=== PATIENT | male | born 1950 | race Caucasian/White ===

== ENCOUNTER 2018-09-02 13:06 | Inpatient (IN) ==
[2018-09-02] MEDS ORDERED: Furosemide 40 MG/4 ML VIAL IVP ONE (13:14)
[2018-09-02] MEDS ORDERED: Nitroglycerin 25 MG/250 ML INFUS..BTL IVC ONE (13:16)
[2018-09-02] MEDS: Nitroglycerin 25 MG/250 ML INFUS..BTL IVC SCH (13:22)
--- NOTE | 2018-09-02 13:23 | Emergency Department Note ---
Disposition Clinical Impression: Acute decompensated heart failure Acute respiratory failure Qualifiers: Respiratory failure complication: hypoxia Qualified Code(s): J96.01 - Acute respiratory failure with hypoxia Disposition: Admitted As Inpatient Condition: Fair [facility]errals: [facility] [Primary Care Provider[facility] - Forms: ED Satisfaction Letter Time of Disposition: 15:25 General Adult HPI - General Chief complaint: ED Shortness of Breath/Dyspnea Stated complaint: Chest pain, SOB Time Seen by Provider: 09/02/18 13:09 Source: other Limitations: no limitations - History of Present Illness Pain Scale: 5 - Related Data Home Medications Medication Instructions Recorded Confirmed Amlodipine Besylate 10 mg PO QAM 07/03/15 09/02/18 Aspirin [Adult Low Dose Aspirin EC] 81 mg PO QAM 07/03/15 09/02/18 Clopidogrel [Plavix] 75 mg PO QAM 07/03/15 09/02/18 Gabapentin [Neurontin] 400 mg PO TID 07/03/15 09/02/18 Isosorbide MONOnitrate (24 HR) 30 mg PO QAM 07/03/15 09/02/18 [Imdur] Losartan [Cozaar] 75 mg PO QPM 07/03/15 09/02/18 Metoprolol Tartrate [Lopressor] 50 mg PO BID 07/03/15 09/02/18 glipiZIDE [Glipizide] 10 mg PO QAM 07/03/15 09/02/18 Cholecalciferol (Vitamin D3) 1,000 unit PO DAILY 04/27/18 09/02/18 [Vitamin D3] Pantoprazole Sodium [Protonix] 40 mg PO DAILY 04/27/18 09/02/18 Rosuvastatin Calcium [Crestor] 10 mg PO DAILY 04/27/18 09/02/18 Tamsulosin [Flomax] 0.4 mg PO DAILY 04/27/18 09/02/18 Allergies Allergy/AdvReac Type Severity Reaction Status Date / Time No Known Allergies Allergy Verified 07/03/15 10:01 Past Medical History - Past Medical History Medical history: Reports: arthritis, diabetes, hypertension, myocardial infarction Surgical history: Reports: coronary bypass (CABG) Psychiatric history: Reports: no psych history - Social History Smoking Status: Former smoker Smokeless Tobacco Status: No Alcohol use: Reports: none Drug use: Reports: none Physical Exam - General Limitations: no limitations General appearance: alert Course Vital Signs Temperature 97.6 F 09/02/18 13:08 Pulse Rate 90 09/02/18 13:08 Respiratory Rate 29 09/02/18 13:08 Blood Pressure 154/103 09/02/18 13:08 O2 Sat by Pulse Oximetry 81 09/02/18 13:08 Temperature 97.6 F 09/02/18 13:08 Pulse Rate 70 09/02/18 16:43 Respiratory Rate 18 09/02/18 16:43 Blood Pressure 150/89 09/02/18 16:43 O2 Sat by Pulse Oximetry 97 09/02/18 16:43 Oxygen Delivery Oxygen Delivery Bipap Medical Decision Making - Lab Data Result diagrams: 09/02/18 13:33 09/02/18 13:31 Lab Results 09/02/18 09/02/18 09/02/18 Range/Units 13:31 13:31 13:33 WBC 9.3 (4.3-11.1) K/mcL RBC 5.94 H (4.19-5.50) M/mcL Hgb 16.5 (12.9-16.9) g/dL Hct 52.2 H (37.5-50.1) % MCV 87.9 (83.0-100.0) fL MCH 27.8 L (28.0-33.3) pg MCHC 31.6 (31.6-35.5) g/dL RDW 15.5 H (11.5-14.5) % Plt Count 163 (140-400) K/mcL MPV 11.8 (9.4-12.4) fL Immature Gran % 0.9 (0-4) % Seg Neutrophils % 78.8 % Lymphocytes % 10.9 % Monocytes % 6.4 % Eosinophils % 2.4 % Basophils % 0.6 % Neutrophils # 7.3 (1.6-8.9) K/mcL Lymphocytes # 1.0 (0.6-4.6) K/mcL Monocytes # 0.6 (0.0-1.3) K/mcL Eosinophils # 0.2 (0.0-0.6) K/mcL Basophils # 0.1 (0.0-0.2) K/mcL PT 12.0 (9.4-12.1) Seconds INR 1.1 Sodium 137 (136-145) mEq/L Potassium 4.2 (3.5-5.1) mEq/L Chloride 104 (98-107) mEq/L Carbon Dioxide 18 L (23-29) mEq/L BUN 28 H (8-23) mg/dL Creatinine 1.46 H (0.70-1.30) mg/dL Est GFR ( Amer) 58 L (> 60) Est GFR (Non-Af Amer) 48 L (> 60) BUN/Creatinine Ratio 19 (6-26) Glucose 253 H (70-105) mg/dL Calculated Osmolality 298 (280-300) Calcium 9.1 (8.6-10.3) mg/dL Troponin I < 0.03 (< 0.04) ng/mL B-Natriuretic Peptide (Less than 100) pg/mL 09/02/18 Range/Units 13:33 WBC (4.3-11.1) K/mcL RBC (4.19-5.50) M/mcL Hgb (12.9-16.9) g/dL Hct (37.5-50.1) % MCV (83.0-100.0) fL MCH (28.0-33.3) pg MCHC (31.6-35.5) g/dL RDW (11.5-14.5) % Plt Count (140-400) K/mcL MPV (9.4-12.4) fL Immature Gran % (0-4) % Seg Neutrophils % % Lymphocytes % % Monocytes % % Eosinophils % % Basophils % % Neutrophils # (1.6-8.9) K/mcL Lymphocytes # (0.6-4.6) K/mcL Monocytes # (0.0-1.3) K/mcL Eosinophils # (0.0-0.6) K/mcL Basophils # (0.0-0.2) K/mcL PT (9.4-12.1) Seconds INR Sodium (136-145) mEq/L Potassium (3.5-5.1) mEq/L Chloride (98-107) mEq/L Carbon Dioxide (23-29) mEq/L BUN (8-23) mg/dL Creatinine (0.70-1.30) mg/dL Est GFR ( Amer) (> 60) Est GFR (Non-Af Amer) (> 60) BUN/Creatinine Ratio (6-26) Glucose (70-105) mg/dL Calculated Osmolality (280-300) Calcium (8.6-10.3) mg/dL Troponin I (< 0.04) ng/mL B-Natriuretic Peptide 293 H (Less than 100) pg/mL Critical Care Time Critical Care Time: Yes Total Critical Care Time: 40 Attestation: Critical care performed: Time is exclusive of separately billable procedures. Time includes: direct patient care, patient reassessment, coordination of patient care, interpretation of data (laboratory data, radiology data, and respiratory data), review of patient's medical records, medical consultation and documentation of patient care. Procedures included in critical care time: Procedures excluded from critical care time: Attestation Statement - Attestation Attestation: I examined this patient and my medical decision-making was reviewed with the Resident Physician. I agree with the documented findings, disposition and treatment plan as described except to the extent set forth below. Patient presents to the ED in respiratory distress. Patient was in cardiopulmonary having a stress test. It was completed. On the stress test a respiratory therapist DIRECT CHAIR. HIS PULSE OX IS IN THE 70S. HE IS BROUGHT FOR EVALUATION. ON EXAMINATION HE IS IN RESPIRATORY DISTRESS. DUSKY. DIFFUSE RAILS. 2+ pitting edema to his lower extremities. Plan. The patient appears to be M.D., stated heart failure. He was immediately placed on a BiPAP. We will give much glycerin Lasix. Cardiac workup. Likely admission. Patient reevaluated. He is much more comfortable on BiPAP. Speaking full senses at this time. Calling for admission. Chest X-Ray 09/02/18 13:17 IMPRESSION: Central pulmonary vascular congestion, compatible with mild CHF. D/ / Ervin Saba MD / Ervin Saba MD Interpreting Provider: Ervin Saba MD
--- NOTE | 2018-09-02 13:49 | Emergency Department Note ---
Disposition Clinical Impression: Acute decompensated heart failure Acute respiratory failure Qualifiers: Respiratory failure complication: hypoxia Qualified Code(s): J96.01 - Acute respiratory failure with hypoxia Disposition: Admitted As Inpatient Condition: Fair [facility]errals: [facility] [Primary Care Provider] - Forms: ED Satisfaction Letter Time of Disposition: 17:26 SOB HPI - General Chief Complaint: ED Shortness of Breath/Dyspnea Stated Complaint: Chest pain, SOB Time Seen by Provider: 09/02/18 13:09 Source: patient, family, other Mode of arrival: ambulatory Limitations: no limitations Nursing Notes Reviewed: Yes Vital Signs Reviewed: Yes - History of Present Illness 68-year-old male with past medical history of myocardial infarction with coronary artery bypass stated 6 stents placed in 2007. Past medical history of CHF, presenting for one day history of profound shortness of breath. Patient was at outpatient cardiac stress test today with negative workup when he suddenly developed profound shortness of breath. Respiratory therapy noted the patient's oxygen saturations were in the 70s on room air. Patient was brought to the ED and placed on nonrebreather mask and transitioned quickly to BiPAP. Patient is doing much better on BiPAP and is now able to participate in review systems and history of present illness questioning. Patient started on nitro drip for concern of ACS. Versus pulmonary hypertension. Pt Subjective Complaint: shortness of breath Onset (ago): hour(s) Severity: severe Improves with: oxygen Known history of: congestive heart failure Associated symptoms: Reports: other (Lightheadedness dizziness) Cough present: No - Related Data Home Medications Medication Instructions Recorded Confirmed Amlodipine Besylate 10 mg PO QAM 07/03/15 09/02/18 Aspirin [Adult Low Dose Aspirin EC] 81 mg PO QAM 07/03/15 09/02/18 Clopidogrel [Plavix] 75 mg PO QAM 07/03/15 09/02/18 Gabapentin [Neurontin] 400 mg PO TID 07/03/15 09/02/18 Isosorbide MONOnitrate (24 HR) 30 mg PO QAM 07/03/15 09/02/18 [Imdur] Losartan [Cozaar] 75 mg PO QPM 07/03/15 09/02/18 Metoprolol Tartrate [Lopressor] 50 mg PO BID 07/03/15 09/02/18 glipiZIDE [Glipizide] 10 mg PO QAM 07/03/15 09/02/18 Cholecalciferol (Vitamin D3) 1,000 unit PO DAILY 04/27/18 09/02/18 [Vitamin D3] Pantoprazole Sodium [Protonix] 40 mg PO DAILY 04/27/18 09/02/18 Rosuvastatin Calcium [Crestor] 10 mg PO DAILY 04/27/18 09/02/18 Tamsulosin [Flomax] 0.4 mg PO DAILY 04/27/18 09/02/18 Allergies Allergy/AdvReac Type Severity Reaction Status Date / Time No Known Allergies Allergy Verified 07/03/15 10:01 Review of Systems: Constitutional: Denies: fever, chills Cardiovascular: Denies: chest pain Respiratory: Admits dyspnea Gastrointestinal: Denies: abdominal pain, nausea, vomiting Genitourinary: Denies: hematuria Musculoskeletal: Denies: back pain, neck pain Integumentary: Denies: rash Neurological: Denies: headache, weakness, numbness, paresthesias Endocrine: Admits fatigue All systems ED: reviewed and negative except as stated. Review of Systems: As Per HPI Past Medical History - Past Medical History Source: patient, obtained from family Medical history: Reports: arthritis, diabetes, hypertension, myocardial infarction Surgical history: Reports: coronary bypass (CABG) Psychiatric history: Reports: no psych history - Social History Smoking Status: Former smoker Smokeless Tobacco Status: No Alcohol use: Reports: none Drug use: Reports: none Physical Exam Constitutional: Patient moderate respiratory distress, otherwise [id number], engaged to conversation, speech is fluid, answers questions appropriately Neuro: GCS 15, no overt focal neurological deficits Head: Atraumatic, normocephalic Eyes: Pupils equal, round and reactive to light, no scleral icterus, no conjunctival injection Neck: Trachea midline without deviation. Anterior neck is supple without swelling. *Chest: Symmetric chest wall rise *Heart: Cardiac rhythm and rate are regular with S1 and S2 , no S3 or S4 appreciated, no murmurs, gallops, rubs, or clicks. *Lungs: Diffuse crackles and rhonchi bilaterally to auscultation, significant accessory muscle use or prolonged expiratory phase. Patient doing much better on BiPAP. Abdomen: Abdomen is rotund, soft to palpation, normal bowel sounds. No abdominal bruit auscultated. Non-distended, non-rigid, no organomegaly, no ascites appreciated. No pulsatile mass, no tenderness or guarding to palpation in all four quadrants, no rebound Extremities: Normal capillary refill without evidence of pedal edema, joint swelling or erythema. Pulses/motor intact in all 4 extremities. Psychiatric exam: Patient initially appears anxious but relaxes with BiPAP. Integumentary: warm, dry, intact, normal color. No rash, cyanosis, diaphoresis, erythema, or pallor - General Limitations: no limitations General appearance: alert Course Course Narrative: Concern for congestive heart failure Continue BiPAP CBC, BMP, BNP, troponin Chest x-ray, EKG/old EKG Nitroglycerin drip and furosemide for management of patient's symptoms We will titrate nitroglycerin to systolic blood pressure above 110. Vital Signs Temperature 97.6 F 09/02/18 13:08 Pulse Rate 90 09/02/18 13:08 Respiratory Rate 29 09/02/18 13:08 Blood Pressure 154/103 09/02/18 13:08 O2 Sat by Pulse Oximetry 81 09/02/18 13:08 Temperature 97.6 F 09/02/18 13:08 Pulse Rate 70 09/02/18 16:43 Respiratory Rate 18 09/02/18 16:43 Blood Pressure 150/89 09/02/18 16:43 O2 Sat by Pulse Oximetry 97 09/02/18 16:43 Oxygen Delivery Oxygen Delivery Bipap Shortness of Breath/Dyspnea - [facility] Narrative Medical decision making narrative: Patient laboratory and imaging results are consistent with congestive heart failure Patient will be admitted to hospitalist medicine service for further evaluation and management of CHF exacerbation. - Lab Data Lab results reviewed: Yes I reviewed the patient's lab results. Result diagrams: 09/02/18 13:33 09/02/18 13:31 Lab Results 09/02/18 09/02/18 09/02/18 Range/Units 13:31 13:31 13:33 WBC 9.3 (4.3-11.1) K/mcL RBC 5.94 H (4.19-5.50) M/mcL Hgb 16.5 (12.9-16.9) g/dL Hct 52.2 H (37.5-50.1) % MCV 87.9 (83.0-100.0) fL MCH 27.8 L (28.0-33.3) pg MCHC 31.6 (31.6-35.5) g/dL RDW 15.5 H (11.5-14.5) % Plt Count 163 (140-400) K/mcL MPV 11.8 (9.4-12.4) fL Immature Gran % 0.9 (0-4) % Seg Neutrophils % 78.8 % Lymphocytes % 10.9 % Monocytes % 6.4 % Eosinophils % 2.4 % Basophils % 0.6 % Neutrophils # 7.3 (1.6-8.9) K/mcL Lymphocytes # 1.0 (0.6-4.6) K/mcL Monocytes # 0.6 (0.0-1.3) K/mcL Eosinophils # 0.2 (0.0-0.6) K/mcL Basophils # 0.1 (0.0-0.2) K/mcL PT 12.0 (9.4-12.1) Seconds INR 1.1 Sodium 137 (136-145) mEq/L Potassium 4.2 (3.5-5.1) mEq/L Chloride 104 (98-107) mEq/L Carbon Dioxide 18 L (23-29) mEq/L BUN 28 H (8-23) mg/dL Creatinine 1.46 H (0.70-1.30) mg/dL Est GFR ( Amer) 58 L (> 60) Est GFR (Non-Af Amer) 48 L (> 60) BUN/Creatinine Ratio 19 (6-26) Glucose 253 H (70-105) mg/dL Calculated Osmolality 298 (280-300) Calcium 9.1 (8.6-10.3) mg/dL Troponin I < 0.03 (< 0.04) ng/mL B-Natriuretic Peptide (Less than 100) pg/mL 09/02/18 Range/Units 13:33 WBC (4.3-11.1) K/mcL RBC (4.19-5.50) M/mcL Hgb (12.9-16.9) g/dL Hct (37.5-50.1) % MCV (83.0-100.0) fL MCH (28.0-33.3) pg MCHC (31.6-35.5) g/dL RDW (11.5-14.5) % Plt Count (140-400) K/mcL MPV (9.4-12.4) fL Immature Gran % (0-4) % Seg Neutrophils % % Lymphocytes % % Monocytes % % Eosinophils % % Basophils % % Neutrophils # (1.6-8.9) K/mcL Lymphocytes # (0.6-4.6) K/mcL Monocytes # (0.0-1.3) K/mcL Eosinophils # (0.0-0.6) K/mcL Basophils # (0.0-0.2) K/mcL PT (9.4-12.1) Seconds INR Sodium (136-145) mEq/L Potassium (3.5-5.1) mEq/L Chloride (98-107) mEq/L Carbon Dioxide (23-29) mEq/L BUN (8-23) mg/dL Creatinine (0.70-1.30) mg/dL Est GFR ( Amer) (> 60) Est GFR (Non-Af Amer) (> 60) BUN/Creatinine Ratio (6-26) Glucose (70-105) mg/dL Calculated Osmolality (280-300) Calcium (8.6-10.3) mg/dL Troponin I (< 0.04) ng/mL B-Natriuretic Peptide 293 H (Less than 100) pg/mL - Radiology Data Radiology results reviewed: Yes I reviewed the patient's radiology results. Chest X-Ray 09/02/18 13:17 IMPRESSION: Central pulmonary vascular congestion, compatible with mild CHF. D/ / Ervin Saba MD / Ervin Saba MD Interpreting Provider: Ervin Saba MD - EKG Data EKG attestation: Yes I reviewed and interpreted this EKG. EKG results narrative: Patient EKG shows sinus tachycardia with a ventricular trigeminy heart rate of 94 bpm, AK interval of 180 ms, QRS duration of 122 ms, QT/QTc interval 39/47 ms respectively. There are no significant ST segment elevations, depressions, pathologic Q's, abnormal T-wave inversions, nor any signs of acute ischemic change. This EKG performed today is generally consistent with prior EKG performed on 07/03/2015.
[2018-09-02 13:53] LABS: Basophils # 0.1 K/mcL (0.0-0.2); Basophils % 0.6 %; Eosinophils # 0.2 K/mcL (0.0-0.6); Eosinophils % 2.4 %; Hematocrit 52.2 % (37.5-50.1); Hemoglobin 16.5 g/dL (12.9-16.9); Immature Granulocytes % 0.9 % (0-4); Lymphocytes % 10.9 %; Mean Corpuscular HGB Conc 31.6 g/dL (31.6-35.5); Mean Corpuscular Hemoglobin 27.8 pg (28.0-33.3); Mean Corpuscular Volume 87.9 fL (83.0-100.0); Mean Platelet Volume 11.8 fL (9.4-12.4); Monocytes # 0.6 K/mcL (0.0-1.3); Monocytes % 6.4 %; Neutrophils # 7.3 K/mcL (1.6-8.9); Platelet Count 163 K/mcL (140-400); Red Blood Count 5.94 M/mcL (4.19-5.50); Red Cell Distribution Width 15.5 % (11.5-14.5); Segmented Neutrophils % 78.8 %
[2018-09-02 14:01] LABS: INR 1.1
[2018-09-02 14:24] LABS: BUN/Creatinine Ratio 19 (6-26); Blood Urea Nitrogen 28 mg/dL (8-23); Calcium 9.1 mg/dL (8.6-10.3); Carbon Dioxide 18 mEq/L (23-29); Chloride 104 mEq/L (98-107); Glucose 253 mg/dL (70-105); Osmolality,Calculated 298 (280-300); Potassium 4.2 mEq/L (3.5-5.1); Sodium 137 mEq/L (136-145); Troponin I < 0.03 ng/mL (< 0.04); eGFR For Non-African Americans 48 (> 60)
[2018-09-02] MEDS ORDERED: Naloxone 0.4 MG/ML INJ IVP PRN (16:03)
[2018-09-02] MEDS ORDERED: *HR* Metoprolol 5 MG/5 ML VIAL IVP PRN (16:06)
[2018-09-02] MEDS ORDERED: Nitroglycerin 0.4 MG TAB.SUBL SL PRN (16:06)
--- NOTE | 2018-09-02 16:11 | Internal Med History&Physical ---
Date of Encounter: 09/02/18 Time of Encounter: 16:50 Internal Medicine - H&P: HPI History of present illness: Mr. Toussaint is a 68 year old male with history of CAD status-post CABG on DAPT, CHF, DM, HTN presented to ED after patient had dyspnea and chest pain during cardiac stress test today. Patient'sO2 saturations were in the 70s on room airPain was substernal, both aching and sharp, without radiating. No exacerbating factors. Has lower extremity edema as well worse than usual but he is using compression stockings currently. Pain alleviated by Nitro in ED. Denies numbness/tingling, diaphoresis, n/v, palpitations. Has orthopnea at baseline. Patient stress test today was supposed to be two day test. He had [facility] Apr 2018 showing 1 of 2 patent bypass grafts, occluded SVG, severe disease of mid to distal LAD. Does not monitor sodium at home, has canned soup quite frequently. In ED patient given SL nitro which immediately relieved pain. Chest xray showed vascular congestion, BNP was 293, initial troponin negative. In the ED patient was placed on bipap, nitro drip, given Lasix IV. Patient states he is feeling much better. Past Med Surg Social Fam HX - Past Medical History Medical history: arthritis, diabetes, hypertension, myocardial infarction Psychiatric history: no psych history - Past Surgical History Surgical History: coronary bypass (CABG) - Social History Smoking Status: Former smoker Smokeless Tobacco Status: No Alcohol use: none Drug use: none - Family History Mother Living Status: Hx Family Cardiac Disorders: No Hx Family Respiratory Disorders: No Hx Family Cancer: Yes (Pelvic tumor, BCC of forehead) Hx Family GI Disorders: Yes (GERD) Hx Family Endocrine Disorder: No Hx Family Neuromuscular Disorders: No Hx Family Neurologic Disorders: No Hx Family HEENT Disorders: No Hx Family Autoimmune Disorders: No Father Living Status: Hx Family Cardiac Disorders: Yes (CHF, [place]) Hx Family Respiratory Disorders: Yes (pulmonary edema) Hx Family Cancer: No Hx Family GI Disorders: No Hx Family Endocrine Disorder: No Hx Family Neuromuscular Disorders: No Hx Family Neurologic Disorders: No Hx Family HEENT Disorders: No Hx Family Autoimmune Disorders: No Internal Medicine - H&P: Meds Amlodipine Besylate 10 mg PO QAM 07/03/15 [History] Aspirin [Adult Low Dose Aspirin EC] 81 mg PO QAM 07/03/15 [History] Clopidogrel [Plavix] 75 mg PO QAM 07/03/15 [History] Gabapentin [Neurontin] 400 mg PO TID 07/03/15 [History] Isosorbide MONOnitrate (24 HR) [Imdur] 30 mg PO QAM 07/03/15 [History] Losartan [Cozaar] 75 mg PO QPM 07/03/15 [History] Metoprolol Tartrate [Lopressor] 50 mg PO BID 07/03/15 [History] glipiZIDE [Glipizide] 10 mg PO QAM 07/03/15 [History] Cholecalciferol (Vitamin D3) [Vitamin D3] 1,000 unit PO DAILY 04/27/18 [History] Pantoprazole Sodium [Protonix] 40 mg PO DAILY 04/27/18 [History] Rosuvastatin Calcium [Crestor] 10 mg PO DAILY 04/27/18 [History] Tamsulosin [Flomax] 0.4 mg PO DAILY 04/27/18 [History] Allergy/AdvReac Type Severity Reaction Status Date / Time No Known Allergies Allergy Verified 07/03/15 10:01 All Systems PM: A 10-system review of systems was performed and is negative for pertinent findings except as documented above in the HPI. - Constitutional Vitals: Temp Pulse Resp BP Pulse Ox 97.6 F 76 24 127/75 95 09/02/18 13:08 09/02/18 14:25 09/02/18 14:25 09/02/18 14:25 09/02/18 14:25 General appearance: Present: A&O X 3 Exam: Mild resp distress, currently on BIPAP speaking in full sentences when mask briefly removed. - Head Head exam: Present: atraumatic, normocephalic - Eye Eye exam: Present: PERRL, conjuntiva pink, sclera anicteric Pupils: Present: PERRL - Neck Neck exam general surgery: Present: supple, trachea midline. Absent: lymphadenopathy Additional comments: No JVD - Respiratory Respiratory exam: Present: decreased breath sounds, rales, rhonchi. Absent: accessory muscle use, wheezes - Cardiovascular Cardiovascular exam: Present: RRR, +S1, +S2. Absent: diastolic murmur, gallop, JVD, rubs, systolic murmur - GI/Abdominal GI/Abdominal exam: Present: normal bowel sounds, soft, no peritoneal signs. Absent: distended, tenderness - Extremities Exam Extremities exam: Present: pedal edema, warm, radial pulses palpable and symmetrical. Absent: calf tenderness, cyanotic Additional comments: Compression stockings on both legs. Some mild pitting edema at both knees above compression stockings. - Neurological Exam Neurological exam: Present: CN II-XII intact, oriented X3, no focal deficits. Absent: pronater drift, facial droop, speech deficit - Skin Skin exam: Present: dry, intact Internal Med - H&P Results - Labs CBC & Chem 7: 09/02/18 13:33 09/02/18 13:31 Labs: Short CBC 09/02/18 Range/Units 13:33 WBC 9.3 (4.3-11.1) K/mcL Hgb 16.5 (12.9-16.9) g/dL Hct 52.2 H (37.5-50.1) % Plt Count 163 (140-400) K/mcL Neutrophils # 7.3 (1.6-8.9) K/mcL BMP 09/02/18 13:31 Sodium 137 Potassium 4.2 Chloride 104 Carbon Dioxide 18 L BUN 28 H Creatinine 1.46 H Glucose 253 H Calcium 9.1 Cardiac Enzymes 09/02/18 Range/Units 13:31 Troponin I < 0.03 (< 0.04) ng/mL - Impressions ITS Impressions Chest X-Ray 09/02/18 13:17 IMPRESSION: Central pulmonary vascular congestion, compatible with mild CHF. D/ / Ervin Saba MD / Ervin Saba MD Interpreting Provider: Ervin Saba MD - Assessment and Plan (1) Chest pain Current Visit: Yes Status: Acute Assessment and plan: Significant cardiac history including CABG. Recent [facility] Apr 2018 shows occlusion of 1 of 2 bypass grafts patent. Initial troponin is negative. EKG has artificant but is sinus rhythm at 94 bpm, with ventricular bigeminy, no appreciable ST/T wave changes, though last EKG was in 2016 on record. Rule out ACS, in particular, may be unstable angina given normal troponin. - Cycle troponin - Continue nitro drip - Start heparin drip until cycled cardiac enzymes overnight. - Cardiology consult, known to patient. Qualifiers: Chest pain type: unspecified Qualified Code(s): R07.9 - Chest pain, unspecified (2) Acute decompensated heart failure Current Visit: Yes Status: Acute Assessment and plan: - Continue IV Lasix, - Continue nitro drip - Fluid restriction diet - Monitor I/Os, daily weights. - Elevate HOB - Cardiology consulted as noted above. (3) Acute respiratory failure Current Visit: Yes Status: Acute Assessment and plan: See above Qualifiers: Respiratory failure complication: hypoxia Qualified Code(s): J96.01 - Acute respiratory failure with hypoxia (4) CKD (chronic kidney disease) stage 3, GFR 30-59 ml/min Current Visit: No Status: Suspected (5) HTN (hypertension) Current Visit: No Status: Chronic Assessment and plan: Resume home medications. Qualifiers: Hypertension type: essential hypertension Qualified Code(s): I10 - Essential (primary) hypertension (6) T2DM (type 2 diabetes mellitus) Current Visit: No Status: Chronic Assessment and plan: ISS Diabetic fluid restricted diet, Levemir 15 units HS, titrate basal insulin as needed. 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 - Time Spent With Patient Total time spent is greater than 50% in coordination of care (as documented) at patient's floor/unit and/or counseling patient:
--- NOTE | 2018-09-02 16:34 | Electrocardiograph Report ---
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
[2018-09-02] MEDS ORDERED: Insulin LISPRO 300 UNITS/3 ML VIAL SQ SCH ×2 (17:00→21:00)
[2018-09-02] MEDS ORDERED: *HR* Heparin 5,000 UNIT/ML VIAL IVP ONE (17:37)
[2018-09-02] MEDS ORDERED: *HR* Heparin 5,000 UNIT/ML VIAL IVP PRN (17:37)
[2018-09-02 17:59] LABS: Hematocrit 50.7 % (37.5-50.1); Hemoglobin 16.1 g/dL (12.9-16.9); Mean Corpuscular HGB Conc 31.8 g/dL (31.6-35.5); Mean Corpuscular Hemoglobin 27.5 pg (28.0-33.3); Mean Corpuscular Volume 86.7 fL (83.0-100.0); Mean Platelet Volume 11.3 fL (9.4-12.4); Platelet Count 178 K/mcL (140-400); Red Blood Count 5.85 M/mcL (4.19-5.50); Red Cell Distribution Width 15.4 % (11.5-14.5)
[2018-09-02 18:26] LABS: Heparin anti-factor XA UFH 0.03 IU/mL (0.30-0.70)
[2018-09-02 18:27] LABS: Prothrombin Time 11.5 Seconds (9.4-12.1)
[2018-09-02] MEDS: Heparin 25,000 UNIT/250 ML D5W 25,000 UNIT/250 ML IV.SOLN IVC SCH (18:41)
[2018-09-02] MEDS ORDERED: Insulin DETEMIR 100 UNIT/ML X5UNITS SQ SCH (21:00)
[2018-09-02] MEDS: Insulin LISPRO 300 UNITS/3 ML VIAL SQ SCH (22:03)
[2018-09-02] MEDS: Gabapentin 400 MG CAPSULE PO SCH (22:07)
[2018-09-03] MEDS: Insulin LISPRO 300 UNITS/3 ML VIAL SQ SCH ×4 (00:32→17:21)
[2018-09-03] MEDS: Nitroglycerin 25 MG/250 ML INFUS..BTL IVC SCH ×2 (01:18→10:21)
[2018-09-03] MEDS: *HR* Heparin 5,000 UNIT/ML VIAL IVP PRN (01:20)
[2018-09-03] MEDS ORDERED: Furosemide 40 MG/4 ML VIAL IVP SCH ×2 (08:00→09:00)
[2018-09-03] MEDS: Gabapentin 400 MG CAPSULE PO SCH ×3 (08:47→20:55)
[2018-09-03] MEDS: amLODIPine 5 MG TABLET PO SCH (08:47)
[2018-09-03] MEDS: Cholecalciferol (D-3) 1,000 UNIT TABLET PO SCH (08:47)
[2018-09-03] MEDS: Aspirin Enteric Coated 81 MG Tablet PO SCH (08:47)
[2018-09-03] MEDS: Isosorbide MONOnitrate (24 HR) 60 MG TAB.ER.24H PO SCH (08:48)
[2018-09-03 08:56] LABS: Basophils # 0.1 K/mcL (0.0-0.2); Basophils % 0.4 %; Eosinophils # 0.2 K/mcL (0.0-0.6); Eosinophils % 1.3 %; Immature Granulocytes % 0.7 % (0-4); Lymphocytes # 0.8 K/mcL (0.6-4.6); Lymphocytes % 7.1 %; Mean Corpuscular HGB Conc 31.6 g/dL (31.6-35.5); Mean Corpuscular Hemoglobin 27.8 pg (28.0-33.3); Monocytes # 1.2 K/mcL (0.0-1.3); Monocytes % 10.2 %; Neutrophils # 9.3 K/mcL (1.6-8.9); Platelet Count 168 K/mcL (140-400); Red Cell Distribution Width 15.4 % (11.5-14.5); Segmented Neutrophils % 80.3 %
[2018-09-03 09:06] LABS: Hemoglobin 13.9 g/dL (12.9-16.9)
[2018-09-03 09:13] LABS: Calcium 8.9 mg/dL (8.6-10.3); Potassium 4.3 mEq/L (3.5-5.1)
[2018-09-03] MEDS: Acetaminophen 325 MG TABLET PO PRN (10:14)
--- NOTE | 2018-09-03 10:45 | Cardiology Consult Note ---
<Sherlyn Elizondo - Last Filed: 09/03/18 10:28> Date of Encounter: 09/03/18 Time of Encounter: 09:00 Assessment and Plan (1) NSTEMI (non-ST elevated myocardial infarction) Current Visit: Yes Status: Acute Per cardiology: -NSTEMI with peak troponin 0.97, now downtrending. -No acute ischemic ECG changes noted. -Currently chest pain free, on nitro drip. -ON asa, statin, BB, imdur, plavix, heparin drip, nitro drip. -LHC 04/2018 with 80% distal LM, 99% prox LAD, 100% mid LAD, 100% diagonal 2, 100% mid circ, 70% OM1, 99% prox RCA, RCA with collaterals from left to right, CALDERON to LAD with 75% stenosis distal to anastamosis, SVG to OM occluded. -TTE 01/2018 with LVEF 45-50%, global hypokinesis, mildly dilated LV, moderate diastolic dysfunction, RV dilated and hypokinetic. -Continue heparin drip. With acute on chronic CHF, ideally would optimize respiratory status prior to repeat ischemic evaluation. -Currently chest pain free, can wean nitro drip to off, as tolerated for chest pain. -Will repeat TTE. -Of note, had finished first portion of stress test yesterday. Will need rest images. (2) Systolic CHF with reduced left ventricular function, NYHA class 3 Current Visit: Yes Status: Acute Per cardiology: -Admitted with acute on chronic CHF. Reports NYHA class III symptoms. -Prior to outpateint stress test, reports increased shortness of breath, weight gain, and orthopnea. -Acute hypoxic event yesterday. -Chest x-ray with central pulmonary vascular congestion. -BNP 293. -On IV lasix. -Remains on O2, not normally on at home. -Agree with IV diuresis. Monitor renal function closely. -Strict i/os, fluid restriction, daily weights. -Will repeat TTE this admission. Discussion w patient/family: The assessment and plan as outlined above was discussed with the patient who expressed understanding and agreement. All questions were answered. Thank you for involving us in the care of your patient. Please call with any questions. Discussed and reviewed with . History of Present Illness Consult date: 09/02/18 Requesting physician: Shailesh Sands Consult reason: NSTEMI Chief complaint: chest pain, hypoxia History of present illness: Mr. Toussaint is a 68 year old male with a relevant past medical history of AR, CAD s/p CABG and PCI, HTN, DM, HLD, BPH, CKD, CHF, neuropathy, carotid stenosis, who presented to ER with complaints of chest pain, shortness of breath. Patient presented to outpatient stress test. Patient was schedule for 2 day study. Patient underwent stress portion yesterday. While patient was recovering from stress test, patient had sudden onset of chest pain, shortness of breath with SpO2 70%. Patient was then taken to ER. Patient states for the past one month, has noticed increased shortness of breath. Reports orthopnea. Reports weight gain of 10 pounds. States he was recently treated for pneumonia at outside facility and patient attributed his symptoms to recent pneumonia. Patient denies current chest pain. Reports increased shortness of breath from baseline. Currently on O2, not normally on at home. Past Med Surg Social Fam HX - Past Medical History Attestation: Yes The following information was validated with the patient. Source: patient, old records reviewed Medical history: arthritis, cardiomyopathy, coronary artery disease, diabetes, hyperlipidemia, hypertension, myocardial infarction Psychiatric history: no psych history - Past Surgical History Surgical History: coronary bypass (CABG) - Social History Smoking Status: Former smoker Smokeless Tobacco Status: No Alcohol use: none Drug use: none - Family History Mother Living Status: Hx Family Cardiac Disorders: No Hx Family Respiratory Disorders: No Hx Family Cancer: Yes (Pelvic tumor, BCC of forehead) Hx Family GI Disorders: Yes (GERD) Hx Family Endocrine Disorder: No Hx Family Neuromuscular Disorders: No Hx Family Neurologic Disorders: No Hx Family HEENT Disorders: No Hx Family Autoimmune Disorders: No Father Living Status: Hx Family Cardiac Disorders: Yes (CHF, AR) Hx Family Respiratory Disorders: Yes (pulmonary edema) Hx Family Cancer: No Hx Family GI Disorders: No Hx Family Endocrine Disorder: No Hx Family Neuromuscular Disorders: No Hx Family Neurologic Disorders: No Hx Family HEENT Disorders: No Hx Family Autoimmune Disorders: No Medications and Allergies Amlodipine Besylate 10 mg PO QAM 07/03/15 [History] Aspirin [Adult Low Dose Aspirin EC] 81 mg PO QAM 07/03/15 [History] Clopidogrel [Plavix] 75 mg PO QAM 07/03/15 [History] Gabapentin [Neurontin] 400 mg PO TID 07/03/15 [History] Isosorbide MONOnitrate (24 HR) [Imdur] 30 mg PO QAM 07/03/15 [History] Losartan [Cozaar] 75 mg PO QPM 07/03/15 [History] Metoprolol Tartrate [Lopressor] 50 mg PO BID 07/03/15 [History] glipiZIDE [Glipizide] 10 mg PO QAM 07/03/15 [History] Cholecalciferol (Vitamin D3) [Vitamin D3] 1,000 unit PO DAILY 04/27/18 [History] Pantoprazole Sodium [Protonix] 40 mg PO DAILY 04/27/18 [History] Rosuvastatin Calcium [Crestor] 10 mg PO DAILY 04/27/18 [History] Tamsulosin [Flomax] 0.4 mg PO DAILY 04/27/18 [History] Allergy/AdvReac Type Severity Reaction Status Date / Time No Known Allergies Allergy Verified 07/03/15 10:01 All Systems Review: The remainder of the systems were reviewed and are negative - Constitutional Constitutional: weight gain - Cardiovascular Cardiovascular: as per HPI, chest pain at rest, dyspnea at rest, dyspnea on exertion, orthopnea Physical Examination Vital Signs, Last 4 Hours Temp Pulse Resp BP Pulse Ox 09/03/18 09:02 93 09/03/18 07:11 98.7 F 67 18 128/64 93 09/03/18 07:01 128/64 General: Conversant, Other (Conversational dyspnea noted. ) HEENT: Atraumatic, Normocephaly, Mucus Membranes Moist Neck: No JVD, Normal carotid pulses Cardiac: Reg Rate and Rhythm, Normal S1 and S2, No Murmur Lungs: Other (Lung sounds diminished throughout. ) Neuro: Alert and responsive, No focal deficits noted Abdomen: Soft, Non-Tender Skin: No rashes noted on visualized skin Musculoskeletal: No Chest Wall Tenderness Extremities: No Clubbing, No Cyanosis, Normal Pulses, Other (Mild lower extremity edema, non-pitting. ) Results 09/03/18 07:59 09/03/18 07:59 Lab Results 09/02/18 09/02/18 09/02/18 13:31 13:31 13:33 WBC 9.3 Hgb 16.5 Hct 52.2 H Plt Count 163 INR 1.1 Sodium 137 Potassium 4.2 Chloride 104 Carbon Dioxide 18 L BUN 28 H Creatinine 1.46 H Glucose 253 H Calcium 9.1 Troponin I < 0.03 B-Natriuretic Peptide Impressions Chest X-Ray 09/02/18 13:17 IMPRESSION: Central pulmonary vascular congestion, compatible with mild CHF. D/ / Ervin Saba MD / Ervin Saba MD Interpreting Provider: Ervin Saba MD Active Medications Acetaminophen (Tylenol) 650 mg PO Q6HR PRN PRN Reason: Fever Stop: 03/05/19 08:55 Last Admin: 09/03/18 10:14 Dose: 650 mg Documented by: Amlodipine Besylate (Norvasc) [address] [facility] Stop: 03/05/19 09:01 Last Admin: 09/03/18 08:47 Dose: Not Given Documented by: Aspirin (Aspirin Ec) [address] [facility] Stop: 03/05/19 09:01 Last Admin: 09/03/18 08:47 Dose: 81 mg Documented by: Atorvastatin Calcium (Lipitor) 20 mg PO DAILY@2100 [facility] Stop: 03/04/19 21:01 Last Admin: 09/02/18 22:06 Dose: 20 mg Documented by: Clopidogrel [facility] ([facility]avix) [facility] Stop: 03/05/19 09:01 Last Admin: 09/03/18 08:47 Dose: 75 mg Documented by: Furosemide (Lasix) 40 mg IVP BIDDIURETIC [facility] Stop: 03/05/19 09:01 Last Admin: 09/03/18 08:59 Dose: 40 mg Documented by: Gabapentin (Neurontin) 400 mg PO TID [facility] Stop: 03/04/19 21:01 Last Admin: 09/03/18 08:47 Dose: 400 mg Documented by: Heparin Sodium (Porcine) (Heparin) 4,000 unit IVP Q6HR PRN PRN Reason: SEE COMMENTS Stop: 03/04/19 17:38 Heparin Sodium (Porcine) (Heparin) 2,000 unit IVP Q6H PRN PRN Reason: SEE COMMENTS Stop: 03/04/19 17:38 Last Admin: 09/03/18 01:20 Dose: 2,000 unit Documented by: Nitroglycerin (Nitroglycerin Premix 25 Mg/250 Ml) 25 mg in 250 mls @ 12 mls/hr IVC .[id number] [facility]; Protocol Stop: 03/04/19 13:16 Last Admin: 09/03/18 10:21 Dose: 25 mcg/min, 15 mls/hr Documented by: Heparin Sodium/Dextrose (Heparin 25,000 Unit/250 Ml D5w) 25,000 unit in 250 mls @ 10.088 mls/hr IVC .Q24H [facility]; Protocol Stop: 03/04/19 17:46 Last Titration: 09/03/18 10:26 Dose: 12 unit/kg/hr, 15.1 mls/hr Documented by: Insulin Human Lispro (Humalog) 0 units SQ Q6HR [facility]; Protocol Stop: 03/04/19 18:01 Last Admin: 09/03/18 06:22 Dose: Not Given Documented by: Isosorbide Mononitrate (Imdur) 30 mg PO QAM [facility] Stop: 03/05/19 09:01 Last Admin: 09/03/18 08:48 Dose: Not Given Documented by: Losartan Potassium (Cozaar) 75 mg PO QPM [facility]; Protocol Stop: 03/04/19 18:01 Last Admin: 09/02/18 22:07 Dose: 75 mg Documented by: Metoprolol Tartrate (Lopressor) 50 mg PO BID [facility] Stop: 03/04/19 21:01 Last Admin: 09/03/18 08:48 Dose: 50 mg Documented by: Metoprolol Tartrate (Lopressor) 5 mg IVP Q6HR PRN PRN Reason: SEE COMMENTS Stop: 03/04/19 16:07 Naloxone HCl (Narcan) 0.4 mg IVP Q2MPRN PRN PRN Reason: SEE COMMENTS Stop: 03/04/19 16:04 Nitroglycerin (Nitroglycerin) 0.4 mg SL Q5MIN PRN PRN Reason: Chest Pain Stop: 03/04/19 16:07 Omeprazole (Prilosec) 20 mg PO DAILY@0630 [facility] Stop: 03/05/19 06:31 Last Admin: 09/03/18 08:40 Dose: 20 mg Documented by: Tamsulosin HCl (Flomax) 0.4 mg PO DAILY [facility]; Protocol Stop: 03/05/19 09:01 Last Admin: 09/03/18 08:39 Dose: 0.4 mg Documented by: Vitamin D (Vitamin D) 1,000 unit PO DAILY [facility] Stop: 03/05/19 09:01 Last Admin: 09/03/18 08:47 Dose: 1,000 unit Documented by: Laboratory Tests 04/17/18 09/02/18 09/02/18 14:40 13:31 13:33 WBC Hgb Creatinine 1.66 H 1.46 H Troponin I < 0.03 B-Natriuretic Peptide 293 H 09/02/18 09/03/18 09/03/18 19:36 00:06 07:59 WBC 11.6 H Hgb 13.9 D Creatinine Troponin I 0.77 H* 0.97 H* B-Natriuretic Peptide 09/03/18 09/03/18 07:59 08:58 WBC Hgb Creatinine 1.54 H Troponin I 0.94 H* B-Natriuretic Peptide - Imaging and Cardiology Chest Xray: report reviewed Stress Test: pending Echo: report reviewed Cardiac cath: report reviewed - EKG Interpretation EKG results cardiology: personally reviewed (ECG SR, ventricular trigeminy noted.), other (Telemetry reviewed with average HR previous 12 hours noted to be 74, SR. PVCs, PACs noted.) Consult Discharge Plan - Plan [facility]errals: [facility]Primary Care Provider[facility] - <Afua Salamanca - Last Filed: 09/03/18 11:43> Date of Encounter: 09/03/18 - Attending Attestation I examined this patient and my medical decision-making was reviewed with the CLERK OF SCALES. I agree with the documented findings, disposition and treatment plan as described. Mr. Toussaint presented to the ED yesterday after becoming hypoxic during outpatient stress testing. No acute ECG changes. Troponins elevated may represent demand ischemia in setting of known severe CAD vs. ACS. Await Echo. Currently feeling better but with conversational dyspnea. Recommend continuing IV diuresis for acute on chronic systolic CHF. Significant CAD noted on C 04/2018 being medically managed. Await clinical improvement, Echo findings to decide upon completing resting portion of stress testing or LHC. Assessment and Plan Discussion w patient/family: The assessment and plan as outlined above was discussed with the patient and/or family members who expressed understanding and agreement. All questions were answered. Thank you for involving us in the care of your patient. Please call with any questions. History of Present Illness History of present illness: Mr. Toussaint is a 68 year old male All Systems Review: The remainder of the systems were reviewed and are negative Physical Examination Vital Signs, Last 4 Hours Pulse Ox 09/03/18 09:02 93 Results 09/03/18 07:59 09/03/18 07:59 Lab Results 09/02/18 09/02/18 09/02/18 13:31 13:31 13:33 WBC 9.3 Hgb 16.5 Hct 52.2 H Plt Count 163 INR 1.1 Sodium 137 Potassium 4.2 Chloride 104 Carbon Dioxide 18 L BUN 28 H Creatinine 1.46 H Glucose 253 H Calcium 9.1 Troponin I < 0.03 B-Natriuretic Peptide 09/02/18 09/02/18 09/02/18 13:33 17:44 17:44 WBC 13.9 H Hgb 16.1 Hct 50.7 H Plt Count 178 INR 1.0 Sodium Potassium Chloride Carbon Dioxide BUN Creatinine Glucose Calcium Troponin I B-Natriuretic Peptide 293 H 09/02/18 09/03/18 09/03/18 19:36 00:06 07:59 WBC 11.6 H Hgb 13.9 D Hct 44.0 Plt Count 168 INR Sodium Potassium Chloride Carbon Dioxide BUN Creatinine Glucose Calcium Troponin I 0.77 H* 0.97 H* B-Natriuretic Peptide 09/03/18 09/03/18 07:59 08:58 WBC Hgb Hct Plt Count INR Sodium 137 Potassium 4.3 Chloride 102 Carbon Dioxide 26 BUN 29 H Creatinine 1.54 H Glucose 213 H Calcium 8.9 Troponin I 0.94 H* B-Natriuretic Peptide
[2018-09-03] MEDS: Heparin 25,000 UNIT/250 ML D5W 25,000 UNIT/250 ML IV.SOLN IVC SCH (11:59)
--- NOTE | 2018-09-03 13:13 | Internal Med Progress Note ---
<CharismaconradearljosephAlayna - Last Filed: 09/03/18 13:33> Hospitalist Progress Note - Encounter Date of Encounter: 09/03/18 Time of Encounter: 09:00 - Subjective Interval History: Patient seen and examined at bedside today. He states that his chest pain has resolved after beginning and nitroglycerin. He states that he feels better o verall and that his shortness of breath has improved. He states he did well overnight and admits to a mild headache on the nitroglycerin drip. He admits to a mild nonproductive cough, orthopnea, intermittent palpitations, chronic constipation. He denies nausea, vomiting, fever, chills, pleuritic pain, abdominal pain, diarrhea, melena, hematochezia, dysuria, hematuria, calf pain. - Exam Vitals: Temp Pulse Resp BP Pulse Ox 98.0 F 62 18 116/63 91 09/03/18 11:00 09/03/18 11:00 09/03/18 11:00 09/03/18 11:00 09/03/18 11:00 Exam: Gen: Vitals noted. No acute distress. AAOx3, lying comfortably in bed, obese HEENT: PERRL/EOMI, oropharynx clear, Normocephalic, atraumatic, mucous membranes dry Cardiac: RRR, no murmur, +S1/S2, radial and dorsal pedis pulses 3+ and symmetrical Pulmonary: Faint crackles at bilateral lung bases, no wheezes or rhonchi, equal chest expansion, nasal cannula in place Abdomen: soft, distended, nontender, BS noted, no guarding, no rebound. MSK: ROM intact, no joint swelling noted Extremities: Trace bilateral lower extremity edema, no calf tenderness, no cyanosis or clubbing. Neuro: A&Ox3, moves all extremities, no focal deficits Psych: Appropriate mood and behavior, pleasant - Assessment and Plan (1) NSTEMI (non-ST elevated myocardial infarction) Current Visit: Yes Status: Acute Assessment and Plan: Presented with respiratory distress after stress test History of coronary artery disease, a/P CABG 2, S/P stents 6, - left heart catheter 04/2018 showed severe three-vessel disease, occlusion of one out of 2 bypass grafts, occluded SVG to OM, severe disease of mid to distal LAD distal to the CALDERON attachment EKG showed ventricular trigeminy, nonspecific intraventricular delay, borderline repolarization abnormality. No acute ischemic changes. Troponins-0.03, 0.77, 0.97, 0.94 Continue aspirin, atorvastatin, Plavix, Imdur, metoprolol Continue heparin drip Per cardiology-wean nitro drip as tolerated, will need repeat of echocardiogram, completion of today's stress test. Recommend repeating ischemic evaluation once respiratory status improved (2) Acute decompensated heart failure Current Visit: Yes Status: Acute Assessment and Plan: Presented with respiratory distress after lying flat for stress test Admits to chronic orthopnea, some mild Rales noted on exam - Prior echo 01/2018-LVEF 45-50%, mildly dilated left ventricle, mild global left ventricular systolic dysfunction, moderate left ventricular diastolic dysfunction, atypical septal motion consistent with postoperative status. Grossly the right ventricle appears dilated and hypokinetic Chest [id number] pulmonary vascular congestion BNP 293 Continue Lasix for diuresis Fluid restriction, I/O's, daily weights (3) Acute respiratory failure Current Visit: Yes Status: Acute Assessment and Plan: Improving Continues to have oxygen requirement, currently on 5 L nasal cannula continuous Suspect secondary to acute decompensated heart failure Chest x-ray showed central pulmonary vascular congestion Will continue diuresis with 40 mg IV Lasix daily Fluid restriction I and O's, daily weights (4) Chest pain Current Visit: Yes Status: Acute Assessment and Plan: Chest pain has resolved Continue to wean off nitroglycerin drip as tolerated See above for management (5) CKD (chronic kidney disease) stage 3, GFR 30-59 ml/min Current Visit: Yes Status: Suspected Assessment and Plan: Stage III chronic kidney disease Baseline creatinine at 1.46 Creatinine currently at 1.54 Suspect bump in creatinine secondary to Lasix use Continue to monitor (6) HTN (hypertension) Current Visit: Yes Status: Chronic Assessment and Plan: Well-controlled Continue amlodipine, losartan, Lopressor (7) T2DM (type 2 diabetes mellitus) Current Visit: Yes Status: Chronic Assessment and Plan: Continue sliding scale insulin Continue to monitor glucose DVT Prophylaxis: Heparin drip - Time Spent with Patient Total time spent is greater than 50% in coordination of care (as documented) at patient's floor/unit and/or counseling patient: Internal Medicine: Result - Labs CBC & Chem 7: 09/03/18 07:59 09/03/18 07:59 Labs: Short CBC 09/02/18 09/02/18 09/03/18 Range/Units 13:33 17:44 07:59 WBC 9.3 13.9 H 11.6 H (4.3-11.1) K/mcL Hgb 16.5 16.1 13.9 D (12.9-16.9) g/dL Hct 52.2 H 50.7 H 44.0 (37.5-50.1) % Plt Count 163 178 168 (140-400) K/mcL Neutrophils # 7.3 9.3 H (1.6-8.9) K/mcL BMP 09/02/18 09/03/18 13:31 07:59 Sodium 137 137 Potassium 4.2 4.3 Chloride 104 102 Carbon Dioxide 18 L 26 BUN 28 H 29 H Creatinine 1.46 H 1.54 H Glucose 253 H 213 H Calcium 9.1 8.9 Cardiac Enzymes 09/02/18 09/02/18 09/03/18 Range/Units 13:31 19:36 00:06 Troponin I < 0.03 0.77 H* 0.97 H* (< 0.04) ng/mL 09/03/18 Range/Units 08:58 Troponin I 0.94 H* (< 0.04) ng/mL - ABG Interpretation ABG results: PT/INR, D-dimer PT 11.5 Seconds (9.4-12.1) 09/02/18 17:44 - Impressions Impressions Chest X-Ray 09/02/18 13:17 IMPRESSION: Central pulmonary vascular congestion, compatible with mild CHF. D/ / Ervin Saba MD / Ervin Saba MD Interpreting Provider: Ervin Saba MD Consult Discharge Plan - Plan [facility]errals: [facility] [Primary Care Provider] - <Shialesh Sands - Last Filed: 09/03/18 14:37> Hospitalist Progress Note - Encounter Date of Encounter: 09/03/18 - Exam Vitals: Temp Pulse Resp BP Pulse Ox 98.0 F 62 18 116/63 91 09/03/18 11:00 09/03/18 11:00 09/03/18 11:00 09/03/18 11:00 09/03/18 11:00 - Assessment and Plan (1) Chest pain Current Visit: Yes Status: Acute (2) Acute decompensated heart failure Current Visit: Yes Status: Acute (3) Acute respiratory failure Current Visit: Yes Status: Acute (4) CKD (chronic kidney disease) stage 3, GFR 30-59 ml/min Current Visit: Yes Status: Suspected (5) HTN (hypertension) Current Visit: Yes Status: Chronic (6) T2DM (type 2 diabetes mellitus) Current Visit: Yes Status: Chronic (7) DVT prophylaxis Current Visit: No Status: Acute - Time Spent with Patient Total time spent is greater than 50% in coordination of care (as documented) at patient's floor/unit and/or counseling patient: Internal Medicine: Result - Labs CBC & Chem 7: 09/03/18 07:59 09/03/18 07:59 Labs: Short CBC 09/02/18 09/03/18 Range/Units 17:44 07:59 WBC 13.9 H 11.6 H (4.3-11.1) K/mcL Hgb 16.1 13.9 D (12.9-16.9) g/dL Hct 50.7 H 44.0 (37.5-50.1) % Plt Count 178 168 (140-400) K/mcL Neutrophils # 9.3 H (1.6-8.9) K/mcL BMP 09/03/18 07:59 Sodium 137 Potassium 4.3 Chloride 102 Carbon Dioxide 26 BUN 29 H Creatinine 1.54 H Glucose 213 H Calcium 8.9 Cardiac Enzymes 09/02/18 09/03/18 09/03/18 Range/Units 19:36 00:06 08:58 Troponin I 0.77 H* 0.97 H* 0.94 H* (< 0.04) ng/mL - ABG Interpretation ABG results: PT/INR, D-dimer PT 11.5 Seconds (9.4-12.1) 09/02/18 17:44 - Attending Attestation I examined this patient and my medical decision-making was reviewed with the Resident Physician. I agree with the documented findings, disposition and treatment plan as described except to the extent set forth below. 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 insulin use: without regional intermodal truck driver use Diabetes mellitus complication status: with kidney complications Diabetes mellitus complication detail: with chronic kidney disease Chronic kidney disease stage: stage 3 (moderate) Qualified Code(s): E11.22 - Type 2 diabetes mellitus with diabetic chronic kidney disease; N18.3 - Chronic kidney disease, stage 3 (moderate) <Shailesh Sands - Last Filed: 09/03/18 14:37> (1) Chest pain Qualifiers: Chest pain type: unspecified Qualified Code(s): R07.9 - Chest pain, unspecified (3) Acute respiratory failure Qualifiers: Respiratory failure complication: hypoxia Qualified Code(s): J96.01 - Acute respiratory failure with hypoxia (5) HTN (hypertension) Qualifiers: Hypertension type: essential hypertension Qualified Code(s): I10 - Essential (primary) hypertension (6) T2DM (type 2 diabetes mellitus) Qualifiers: Diabetes mellitus fci insulin use: without fci use Diabetes mellitus complication status: with kidney complications Diabetes mellitus complication detail: with chronic kidney disease Chronic kidney disease stage: stage 3 (moderate) Qualified Code(s): E11.22 - Type 2 diabetes mellitus with diabetic chronic kidney disease; N18.3 - Chronic kidney disease, stage 3 (moderate)
[2018-09-03] MEDS ORDERED: Perflutren Lipid Microsphere 1.3 ML in 0.9 % Sodium Chloride 8.7 ML IVP ONE (13:31)
[2018-09-04] MEDS: Insulin LISPRO 300 UNITS/3 ML VIAL SQ SCH ×5 (00:41→20:03)
[2018-09-04] MEDS: *HR* Heparin 5,000 UNIT/ML VIAL IVP PRN (00:49)
[2018-09-04] MEDS: Heparin 25,000 UNIT/250 ML D5W 25,000 UNIT/250 ML IV.SOLN IVC SCH ×2 (05:32→19:30)
[2018-09-04 05:44] LABS: Basophils # 0.1 K/mcL (0.0-0.2); Basophils % 0.6 %; Eosinophils # 0.3 K/mcL (0.0-0.6); Eosinophils % 2.6 %; Hematocrit 47.1 % (37.5-50.1); Hemoglobin 14.7 g/dL (12.9-16.9); Immature Granulocytes % 0.4 % (0-4); Lymphocytes # 1.3 K/mcL (0.6-4.6); Lymphocytes % 13.2 %; Mean Corpuscular HGB Conc 31.2 g/dL (31.6-35.5); Mean Corpuscular Hemoglobin 27.4 pg (28.0-33.3); Mean Corpuscular Volume 87.7 fL (83.0-100.0); Mean Platelet Volume 11.7 fL (9.4-12.4); Monocytes # 1.1 K/mcL (0.0-1.3); Monocytes % 11.1 %; Platelet Count 161 K/mcL (140-400); Red Blood Count 5.37 M/mcL (4.19-5.50); Red Cell Distribution Width 15.8 % (11.5-14.5); Segmented Neutrophils % 72.1 %
[2018-09-04 06:00] LABS: Calcium 9.1 mg/dL (8.6-10.3); Potassium 4.1 mEq/L (3.5-5.1)
[2018-09-04] MEDS ORDERED: Furosemide 40 MG/4 ML VIAL IVP SCH (09:00)
[2018-09-04] MEDS: Cholecalciferol (D-3) 1,000 UNIT TABLET PO SCH (09:31)
[2018-09-04] MEDS: Aspirin Enteric Coated 81 MG Tablet PO SCH (09:31)
[2018-09-04] MEDS: Gabapentin 300 MG CAPSULE PO SCH ×3 (09:31→20:10)
[2018-09-04] MEDS: amLODIPine 5 MG TABLET PO SCH (09:33)
--- NOTE | 2018-09-04 13:33 | Cardiology Progress Note ---
Date of Encounter: 09/04/18 Time of Encounter: 08:00 Assessment and Plan (1) NSTEMI (non-ST elevated myocardial infarction) Current Visit: Yes Status: Acute Per cardiology: -NSTEMI with peak troponin 0.97, now downtrending. -No acute ischemic ECG changes noted. -Currently chest pain free, off NTG gtt. -ON asa, statin, BB, imdur, plavix, heparin drip, nitro drip. -LHC 04/2018 with 80% distal LM, 99% prox LAD, 100% mid LAD, 100% diagonal 2, 100% mid circ, 70% OM1, 99% prox RCA, RCA with collaterals from left to right, CALDERON to LAD with 75% stenosis distal to anastamosis, SVG to OM occluded. -TTE 01/2018 with LVEF 45-50%, global hypokinesis, mildly dilated LV, moderate diastolic dysfunction, RV dilated and hypokinetic. -Repeat TTE this admission shows improved LVEF, 50-55% -Completed stress test today, results reviewed with Dr. Hensley; plan for [facility] next week once respiratory and volume status improved and renal function will allow. -Continues to be volume overload, have dyspnea/hypoxia, discussed with Dr. Salamanca will obtain CT chest today without contrast. -Recommend Nephrology consult for diuresis recommendations given worsening renal function. -Will continue to follow. (2) Systolic CHF with reduced left ventricular function, NYHA class 3 Current Visit: Yes Status: Acute Per cardiology: -Admitted with acute on chronic CHF. Reports NYHA class III symptoms. -Prior to outpatient stress test, reports increased shortness of breath, weight gain, and orthopnea. -Acute hypoxic event yesterday. -Chest x-ray with central pulmonary vascular congestion. -BNP 293. Repeat TTE this admission shows improved LVEF, 50-55% -IV lasix stopped given worsening renal function--recommend Nephrology consult. -Remains on O2, not normally on at home--CT chest ordered. -Monitor renal function closely. -Strict i/os, fluid restriction, daily weights. Discussion w patient/family: The assessment and plan as outlined above was discussed with the patient and/or family members who expressed understanding and agreement. All questions were a nswered. Thank you for involving us in the care of your patient. Please call with any questions. The patient was discussed and reviewed with Dr. Salamanca; changes to be made accordingly. Subjective Principal diagnosis: CHF, chest pain Interval history: Seen and examined. Reports dyspnea improved. No recurrent chest pain. No other events reported overnight. Plan to obtain rest images today. Objective Vital Signs, Last 4 Hours Temp Pulse Resp BP Pulse Ox 09/04/18 11:03 98.1 F 86 18 130/66 94 General: Conversant, Other (conversational dyspnea) Cardiac: Reg Rate and Rhythm, Normal S1 and S2 Lungs: Other (bibasilar crackles) Neuro: Alert and responsive Abdomen: Soft Skin: No rashes noted on visualized skin Musculoskeletal: No Chest Wall Tenderness Extremities: Other (BLE edema, 1-2+) Results 09/04/18 05:19 09/04/18 05:19 Lab Results 09/04/18 09/04/18 05:19 05:19 WBC 9.7 Hgb 14.7 Hct 47.1 Plt Count 161 Sodium 139 Potassium 4.1 Chloride 101 Carbon Dioxide 28 BUN 29 H Creatinine 1.78 H Glucose 206 H Calcium 9.1 Active Medications Acetaminophen (Tylenol) 650 mg PO Q6HR PRN PRN Reason: Fever Stop: 03/05/19 08:55 Last Admin: 09/03/18 10:14 Dose: 650 mg Documented by: Amlodipine Besylate (Norvasc) 10 mg PO [facility] Stop: 03/05/19 09:01 Last Admin: 09/04/18 09:33 Dose: 10 mg Documented by: Aspirin (Aspirin Ec) 81 mg PO [facility] Stop: 03/05/19 09:01 Last Admin: 09/04/18 09:31 Dose: 81 mg Documented by: Atorvastatin Calcium (Lipitor) 20 mg PO DAILY@2100 [facility] Stop: 03/04/19 21:01 Last Admin: 09/03/18 20:55 Dose: 20 mg Documented by: Clopidogrel [facility] ([facility]avix) [facility] Stop: 03/05/19 09:01 Last Admin: 09/04/18 09:31 Dose: 75 mg Documented by: Gabapentin (Neurontin) 600 mg PO TID [facility] Stop: 03/06/19 09:01 Last Admin: 09/04/18 09:31 Dose: 600 mg Documented by: Heparin Sodium (Porcine) (Heparin) 4,000 unit IVP Q6HR PRN PRN Reason: SEE COMMENTS Stop: 03/04/19 17:38 Heparin Sodium (Porcine) (Heparin) 2,000 unit IVP Q6H PRN PRN Reason: SEE COMMENTS Stop: 03/04/19 17:38 Last Admin: 09/04/18 00:49 Dose: 2,000 unit Documented by: Nitroglycerin (Nitroglycerin Premix 25 Mg/250 Ml) 25 mg in 250 mls @ 12 mls/hr IVC .[id number] [facility]; Protocol Stop: 03/04/19 13:16 Last Titration: 09/03/18 21:00 Dose: 0 mcg/min, 0 mls/hr Documented by: Heparin Sodium/Dextrose (Heparin 25,000 Unit/250 Ml D5w) 25,000 unit in 250 mls @ 10.088 mls/hr IVC .Q24H [facility]; Protocol Stop: 03/04/19 17:46 Last Titration: 09/04/18 13:24 Dose: 16.02 unit/kg/hr, 20.2 mls/hr Documented by: Insulin Human Lispro (Humalog) 0 units SQ Q6HR [facility]; Protocol Stop: 03/04/19 18:01 Last Admin: 09/04/18 05:14 Dose: Not Given Documented by: Isosorbide Mononitrate (Imdur) 30 mg PO QAM [facility] Stop: 03/05/19 09:01 Last Admin: 09/03/18 08:48 Dose: Not Given Documented by: Losartan Potassium (Cozaar) 75 mg PO QPM [facility]; Protocol Stop: 03/04/19 18:01 Last Admin: 09/03/18 17:27 Dose: 75 mg Documented by: Metoprolol Tartrate (Lopressor) 50 mg PO BID [facility] Stop: 03/04/19 21:01 Last Admin: 09/04/18 09:33 Dose: 50 mg Documented by: Metoprolol Tartrate (Lopressor) 5 mg IVP Q6HR PRN PRN Reason: SEE COMMENTS Stop: 03/04/19 16:07 Naloxone HCl (Narcan) 0.4 mg IVP Q2MPRN PRN PRN Reason: SEE COMMENTS Stop: 03/04/19 16:04 Nitroglycerin (Nitroglycerin) 0.4 mg SL Q5MIN PRN PRN Reason: Chest Pain Stop: 03/04/19 16:07 Omeprazole (Prilosec) 20 mg PO DAILY@0630 [facility] Stop: 03/05/19 06:31 Last Admin: 09/04/18 05:11 Dose: 20 mg Documented by: Tamsulosin HCl (Flomax) 0.4 mg PO DAILY [facility]; Protocol Stop: 03/05/19 09:01 Last Admin: 09/04/18 09:31 Dose: 0.4 mg Documented by: Vitamin D (Vitamin D) 1,000 unit PO DAILY [facility] Stop: 03/05/19 09:01 Last Admin: 09/04/18 09:31 Dose: 1,000 unit Documented by: - Imaging and Cardiology Stress Test: pending Echo: report reviewed - EKG Interpretation EKG results cardiology: personally reviewed Consult Discharge Plan - Plan Referrals: [facility] [Primary Care Provider] - 09/23/18 11:15 am
--- NOTE | 2018-09-04 15:32 | Internal Med Progress Note ---
Hospitalist Progress Note - Encounter Date of Encounter: 09/04/18 Time of Encounter: 15:30 - Subjective Interval History: Patient still on O2, states breathing better but SOB on exertion. Denies chest pain, n/v, numbness/tingling. - Exam Vitals: Temp Pulse Resp BP Pulse Ox 98.1 F 86 18 130/66 94 09/04/18 11:03 09/04/18 11:03 09/04/18 11:03 09/04/18 11:03 09/04/18 11:03 Exam: Gen: No acute distress. AAOx3, lying comfortably in bed, obese HEENT: PERRL/EOMI, oropharynx clear, Normocephalic, atraumatic, mucous membranes dry Cardiac: RRR, no murmur, +S1/S2, radial and dorsal pedis pulses 3+ and symmetrical Pulmonary: Rales at bilateral lung bases, no wheezes or rhonchi, equal chest expansion, nasal cannula in place Abdomen: soft, distended, nontender, BS noted, no guarding, no rebound. MSK: ROM intact, no joint swelling noted Extremities: Trace bilateral lower extremity edema, no calf tenderness, no cyanosis or clubbing. Neuro: A&Ox3, moves all extremities, no focal deficits Psych: Appropriate mood and behavior, pleasant - Assessment and Plan (1) NSTEMI (non-ST elevated myocardial infarction) Current Visit: Yes Status: Acute Assessment and Plan: Presented with respiratory distress after stress test. Known history of CAD s/p CABG x2. [facility] Apr 2018 showed severe three-vessel disease, occlusion of one out of 2 bypass grafts, occluded SVG to OM, severe disease of mid to distal LAD distal to the CALDERON attachment. EKG showing ventricular trigeminy. Initial troponin on admission negative, peaked to 0.97, now trended down to 0.3. Lik nirmala worsened from acute heart failure. Echocardiogram results noted. - Continue heparin drip - Cardiology following, - Weaned off nitro drip Resumed home medications Continue diuresis. (2) Acute decompensated heart failure Current Visit: Yes Status: Acute Assessment and Plan: Presented with respiratory distress after lying flat for stress test Admits to chronic orthopnea, some mild Rales noted on exam - Prior echo 01/2018-LVEF 45-50%, mildly dilated left ventricle, mild global left ventricular systolic dysfunction, moderate left ventricular diastolic dysfunction, atypical septal motion consistent with postoperative status. Grossly the right ventricle appears dilated and hypokinetic Chest [id number] pulmonary vascular congestion BNP 293 Continue Lasix for diuresis - Nephrology consult as patient renal function slightly worsening with diuresis. Fluid restriction to 1.8L daily, I/O's, daily weights (3) Acute respiratory failure Current Visit: Yes Status: Acute Assessment and Plan: Secondary to above. In addition, encourage ambulation and incentive spirometery and wean oxygen as tolerated. (4) CKD (chronic kidney disease) stage 3, GFR 30-59 ml/min Current Visit: Yes Status: Suspected Assessment and Plan: Slightly worsening function with IV diuresis, Nephrology consulted. (5) HTN (hypertension) Current Visit: Yes Status: Chronic Assessment and Plan: continue PO medications, holding Losartan today because of renal function. Resume when able. (6) T2DM (type 2 diabetes mellitus) Current Visit: Yes Status: Chronic Assessment and Plan: ISS Diabetic fluid restricted diet, Titrate basal insulin as needed. (7) DVT prophylaxis Current Visit: No Status: Acute Assessment and Plan: On heparin drip - Time Spent with Patient Total time spent is greater than 50% in coordination of care (as documented) at patient's floor/unit and/or counseling patient: Internal Medicine: Result - Labs CBC & Chem 7: 09/04/18 05:19 09/04/18 05:19 Labs: Short CBC 09/04/18 Range/Units 05:19 WBC 9.7 (4.3-11.1) K/mcL Hgb 14.7 (12.9-16.9) g/dL Hct 47.1 (37.5-50.1) % Plt Count 161 (140-400) K/mcL Neutrophils # 7.0 (1.6-8.9) K/mcL BMP 09/04/18 05:19 Sodium 139 Potassium 4.1 Chloride 101 Carbon Dioxide 28 BUN 29 H Creatinine 1.78 H Glucose 206 H Calcium 9.1 Cardiac Enzymes 09/04/18 Range/Units 14:26 Troponin I 0.34 H* (< 0.04) ng/mL - ABG Interpretation ABG results: PT/INR, D-dimer PT 11.5 Seconds (9.4-12.1) 09/02/18 17:44 - Impressions Impressions Chest X-Ray 09/04/18 11:43 IMPRESSION: Again identified is cardiomegaly, vascular congestion and prominent interstitial change related to underlying suspected pulmonary edema. This appear similar, with a small left pleural effusion and basilar atelectasis. D/ / Noman Montgomery MD / Noman Montgomery MD Interpreting Provider: Noman Montgomery MD Chest CT 09/04/18 14:30 IMPRESSION: Stable chest with no change in appearance of the rounded density left lower lobe with pleural thickening suggesting round atelectasis. D/ / 09/04/2018 15:00:07 Gianluca Chua MD / anusha Interpreting Provider: Gianluca Chua MD Consult Discharge Plan - Plan [facility]errals: [facility] [[facility] Provider[facility] - 09/23/18 11:15 am (3) Acute respiratory failure Qualifiers: Respiratory failure complication: hypoxia Qualified Code(s): J96.01 - Acute respiratory failure with hypoxia (5) HTN (hypertension) Qualifiers: Hypertension type: essential hypertension Qualified Code(s): I10 - Essential (primary) hypertension (6) T2DM (type 2 diabetes mellitus) Qualifiers: Diabetes mellitus terminal superintendent insulin use: without residential use Diabetes mellitus complication status: with kidney complications Diabetes mellitus complication detail: with chronic kidney disease Chronic kidney disease stage: stage 3 (moderate) Qualified Code(s): E11.22 - Type 2 diabetes mellitus with diabetic chronic kidney disease; N18.3 - Chronic kidney disease, stage 3 (moderate)
[2018-09-04] MEDS: Isosorbide MONOnitrate (24 HR) 60 MG TAB.ER.24H PO SCH (15:51)
--- NOTE | 2018-09-04 17:35 | Electrocardiograph Report ---
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
[2018-09-04 19:50] LABS: Protein/Creatinine Ratio,Urine 0.73 mg/mg (0.00-0.20); Sodium, Urine 68.2 mEq/L
[2018-09-05 02:39] LABS: Basophils # 0.1 K/mcL (0.0-0.2); Basophils % 0.6 %; Eosinophils # 0.3 K/mcL (0.0-0.6); Eosinophils % 3.1 %; Hematocrit 43.9 % (37.5-50.1); Hemoglobin 13.7 g/dL (12.9-16.9); Immature Granulocytes % 0.7 % (0-4); Lymphocytes # 1.4 K/mcL (0.6-4.6); Lymphocytes % 15.1 %; Mean Corpuscular HGB Conc 31.2 g/dL (31.6-35.5); Mean Corpuscular Hemoglobin 27.3 pg (28.0-33.3); Mean Corpuscular Volume 87.6 fL (83.0-100.0); Mean Platelet Volume 12.3 fL (9.4-12.4); Monocytes % 10.6 %; Neutrophils # 6.7 K/mcL (1.6-8.9); Platelet Count 172 K/mcL (140-400); Red Blood Count 5.01 M/mcL (4.19-5.50); Red Cell Distribution Width 15.4 % (11.5-14.5); Segmented Neutrophils % 69.9 %
[2018-09-05 03:00] LABS: Calcium 8.9 mg/dL (8.6-10.3); Potassium 4.3 mEq/L (3.5-5.1)
[2018-09-05] MEDS: Nitroglycerin 25 MG/250 ML INFUS..BTL IVC SCH (07:22)
[2018-09-05] MEDS: Isosorbide MONOnitrate (24 HR) 60 MG TAB.ER.24H PO SCH (09:02)
[2018-09-05] MEDS: Aspirin Enteric Coated 81 MG Tablet PO SCH (09:02)
[2018-09-05] MEDS: Cholecalciferol (D-3) 1,000 UNIT TABLET PO SCH (09:03)
[2018-09-05] MEDS: Insulin LISPRO 300 UNITS/3 ML VIAL SQ SCH ×4 (09:03→20:08)
[2018-09-05] MEDS: amLODIPine 5 MG TABLET PO SCH (09:03)
[2018-09-05] MEDS: Heparin 25,000 UNIT/250 ML D5W 25,000 UNIT/250 ML IV.SOLN IVC SCH ×2 (09:04→21:39)
[2018-09-05] MEDS: Gabapentin 300 MG CAPSULE PO SCH ×3 (09:04→20:08)
--- NOTE | 2018-09-05 10:53 | Nephrology Consult Note ---
Date of Encounter: 09/05/18 Time of Encounter: 11:00 Assessment and Plan (1) SUE (acute kidney injury) Status: Acute Mild, due to diuretics Agree with holding losartan and diuretics for now Feurea noted at 32% which is not quite pre-renal but close UOP not impressive Encouraged some po fluid intake Avoid nephrotoxins if possible (2) CKD (chronic kidney disease) stage 3, GFR 30-59 ml/min Status: Chronic GFR at baseline in the 40s (3) NSTEMI (non-ST elevated myocardial infarction) Status: Acute Per cardiology, LHC once stabilized (4) Acute decompensated heart failure Status: Acute Improved, will hold diuretics Strict I/Os advised Continue current fluid restriction at 48oz a day History of Present Illness - Reason for Consult Consult date: 09/05/18 Acute Kidney Injury, Chronic Kidney Disease Requesting physician: Alayna Goodson - History of Present Illness 68 y o male with pmh of DM, HTN, CHF and CAD s/p CABG admitted 09/02/18 with chest pain and SOB during stress test. Pt was diagnosed with CHF exacerbation and started on diuretics. Renal consulted for rising SCr at 1.78, GFR 48. SCr was 1.46, GFR 48 on admission and at baseline was 1.46-1.66, GFR 41-48 and for possible LHC. Pt follows with my associate, Dr Barrios for CKD outpatient. Denies any urinary sxs. LE greatly improved per pt. Past Med Surg Social Fam HX - Past Medical History Medical history: arthritis, cardiomyopathy, coronary artery disease, diabetes, hyperlipidemia, hypertension, myocardial infarction Psychiatric history: no psych history - Past Surgical History Surgical History: coronary bypass (CABG) - Social History Smoking Status: Former smoker Smokeless Tobacco Status: No Alcohol use: none Drug use: none - Family History Mother Living Status: Hx Family Cardiac Disorders: No Hx Family Respiratory Disorders: No Hx Family Cancer: Yes (Pelvic tumor, BCC of forehead) Hx Family GI Disorders: Yes (GERD) Hx Family Endocrine Disorder: No Hx Family Neuromuscular Disorders: No Hx Family Neurologic Disorders: No Hx Family HEENT Disorders: No Hx Family Autoimmune Disorders: No Father Living Status: Hx Family Cardiac Disorders: Yes (CHF, [place]) Hx Family Respiratory Disorders: Yes (pulmonary edema) Hx Family Cancer: No Hx Family GI Disorders: No Hx Family Endocrine Disorder: No Hx Family Neuromuscular Disorders: No Hx Family Neurologic Disorders: No Hx Family HEENT Disorders: No Hx Family Autoimmune Disorders: No Medications and Allergies Amlodipine Besylate 10 mg PO QAM 07/03/15 [History] Aspirin [Adult Low Dose Aspirin EC] 81 mg PO QAM 07/03/15 [History] Clopidogrel [Plavix] 75 mg PO QAM 07/03/15 [History] Isosorbide MONOnitrate (24 HR) [Imdur] 30 mg PO QAM 07/03/15 [History] Losartan [Cozaar] 75 mg PO QPM 07/03/15 [History] Metoprolol Tartrate [Lopressor] 50 mg PO BID 07/03/15 [History] glipiZIDE [Glipizide] 10 mg PO BID 07/03/15 [History] Cholecalciferol (Vitamin D3) [Vitamin D3] 1,000 unit PO DAILY 04/27/18 [History] Pantoprazole Sodium [Protonix] 40 mg PO DAILY 04/27/18 [History] Rosuvastatin Calcium [Crestor] 10 mg PO DAILY 04/27/18 [History] Tamsulosin [Flomax] 0.4 mg PO DAILY 04/27/18 [History] Albuterol Sulfate [Proair Hfa] 2 puff PO Q6H PRN 09/03/18 [History] Ammonium Lactate [Lois-Hydrolac] 1 appl TP BID PRN 09/03/18 [History] Carboxymethylcellulos/Glycerin [Refresh Optive Gel Eye Drops] 1 drop BOTH EYES TID 09/03/18 [History] Gabapentin [Neurontin] 600 mg PO TID 09/03/18 [History] Ketoconazole 2% CRM [Nizoral Cream] 1 appl TP BID PRN 09/03/18 [History] Nitroglycerin [Nitrostat] 0.4 mg SL Q5MIN PRN MDD [id number] CALL 911 09/03/18 [History] Polyethylene Glycol 3350 [MiraLAX] 17 gm PO DAILY 09/03/18 [History] Simethicone [Gas-X] 160 mg PO AD PRN 09/03/18 [History] Allergy/AdvReac Type Severity Reaction Status Date / Time No Known Allergies Allergy Verified 09/03/18 16:14 Review of Systems All Systems review (narrative): The rest of the system are negative Constitutional: fatigue (admits) Cardiovascular: chest pain (admits at adm), dyspnea (admits at adm) Exam - Vital Signs Vital signs: Initial Vital Signs Temp Pulse Resp BP Pulse Ox 97.6 F 90 29 154/103 81 09/02/18 13:08 09/02/18 13:08 09/02/18 13:08 09/02/18 13:08 09/02/18 13:08 Vital Signs - Last 8 Hours Temp Pulse Resp BP Pulse Ox 09/05/18 07:21 97.8 F 74 18 134/73 95 09/05/18 03:13 98.4 F 65 18 149/89 95 Intake and Output 09/04/18 09/05/18 09/05/18 23:59 07:59 15:59 Intake Total 56.8 / 840.0 250 / 610 360 / 610 Output Total 400 / 400 Balance 56.8 / 290.0 -150 / 210 360 / 210 Intake: IV Fluids 56.8 / 480.0 250 / 250 Heparin 25,000 UNIT/250 ML D5W 56.8 / 480.0 250 / 250 25,000 unit In 250 ml @ 8 UNIT/ KG/HR 10.088 mls/hr IVC .Q24H [facility] Rx#:[id number] Oral 360 / 360 Output: Urine 400 / 400 Other: Meal Dinner Breakfast Percent of Meal Consumed 100% 100% Weight 118 kg Blood Glucose* 169 214 Patient Weight 09/05/18 23:59 Weight 118 kg - General Appearance General appearance: obese (NAD), chronically ill EENT: ATNC, mucous membranes moist Neck: no JVD, supple Additional Comments: good areation ant bilat Cardiology: edema (trace LE bilat), normal S1, normal S2 Gastrointestinal: no tenderness, no guarding, obese Integumentary: warm and dry Neurologic: no focal deficit Musculoskeletal: no deformities Psychiatric: mood/affect appropriate, cooperative Results - Lab Results 09/10/18 04:02 09/10/18 04:02 Most recent lab results 09/05/18 00:54 Calcium 8.9 Consult Discharge Plan - Plan Instructions: Myocardial Infarction (DC), Myocardial Infarction (GEN), Coronary Intravascular Stent Placement (DC) [facility]errals: [facility]Primary Care Provider[facility] - 09/23/18 11:15 am Lisa Hensley [Partnered Physician] -
--- NOTE | 2018-09-05 12:17 | Cardiology Progress Note ---
Date of Encounter: 09/05/18 Time of Encounter: 12:15 Assessment and Plan (1) NSTEMI (non-ST elevated myocardial infarction) Current Visit: Yes Status: Acute Per Cardiology: NSTEMI with peak troponin 0.97, now downtrending. TTE 01/2018 with LVEF 45-50%, global hypokinesis, mildly dilated LV, moderate diastolic dysfunction, RV dilated and hypokinetic. Repeat TTE this admission shows improved LVEF, 50-55%. Per previous notes: [facility] 04/2018 with 80% distal LM, 99% prox LAD, 100% mid LAD, 100% diagonal 2, 100% mid circ, 70% OM1, 99% prox RCA, RCA with collaterals from left to right, CALDERON to LAD with 75% stenosis distal to anastamosis, SVG to OM occluded. Stress test results reviewed with Dr. Hensley; plan for [facility] next week once respiratory and volume status improved and renal function will allow. Nephrology following. CP free. Off NTG gtt. On asa, statin, BB, imdur, plavix, heparin drip. (2) CKD (chronic kidney disease) stage 3, GFR 30-59 ml/min Current Visit: Yes Status: Chronic Per Cardiology: Plan for C next week. Nephrology following. Discussion w patient/family: The assessment and plan as outlined above was discussed with the patient and/or family members who expressed understanding and agreement. All questions were answered. Thank you for involving us in the care of your patient. Please call with any questions. Subjective Principal diagnosis: CHF, chest pain Interval history: Patient seen with family at bedside. Denies any chest pain, short of breath, palpitations. Reports edema and shortness of breath have overall improved. Objective Vital Signs, Last 4 Hours Temp Pulse Resp BP Pulse Ox 09/05/18 11:21 97.7 F 58 18 122/71 97 General: Conversant, No Apparent Distress HEENT: Atraumatic, Normocephaly, Mucus Membranes Moist Neck: No JVD, Normal carotid pulses Cardiac: Reg Rate and Rhythm, Normal S1 and S2, No Murmur Lungs: Normal Breath Sounds, No Wheeze, Rales, Rhonchi Neuro: Alert and responsive, No focal deficits noted Abdomen: Soft, Non-Tender Skin: No rashes noted on visualized skin Musculoskeletal: No Chest Wall Tenderness Extremities: No Clubbing, No Cyanosis, Normal Pulses, Other (Trace bilateral nonpitting lower extremity edema) Results 09/05/18 00:54 09/05/18 00:54 Lab Results Laboratory Tests 07/03/15 09/02/18 09/02/18 10:39 13:31 13:31 WBC Hgb Hct Plt Count INR 1.1 Creatinine 1.64 H 1.46 H Est GFR (Non-Af Amer) 42 L 48 L Troponin I < 0.03 B-Natriuretic Peptide 09/02/18 09/02/18 09/03/18 13:33 19:36 00:06 WBC Hgb Hct Plt Count INR Creatinine Est GFR (Non-Af Amer) Troponin I 0.77 H* 0.97 H* B-Natriuretic Peptide 293 H 09/03/18 09/04/18 09/05/18 08:58 14:26 00:54 WBC 9.5 Hgb 13.7 Hct 43.9 Plt Count 172 INR Creatinine Est GFR (Non-Af Amer) Troponin I 0.94 H* 0.34 H* B-Natriuretic Peptide 09/05/18 00:54 WBC Hgb Hct Plt Count INR Creatinine 1.78 H Est GFR (Non-Af Amer) 38 L Troponin I B-Natriuretic Peptide ITS Impressions Chest X-Ray 09/02/18 13:17 IMPRESSION: Central pulmonary vascular congestion, compatible with mild CHF. D/ / Ervin Saba MD / Ervin Saba MD Interpreting Provider: Ervin Saba MD Echocardiogram 09/03/18 10:49 Impressions: Technically sub-optimal due to poor echocardiographic windows. Grossly LVEF 50-55%.Unable to adequately evaluate segmental wall motion due to technical quality. Atypical septal motion consistent with post-operative status. Indeterminate diastolic function. The right ventricle was not well visualized No obvious significant valvular dysfunction. Unable to estimate RVSP due to lack of TR jet. Left Ventricular Wall Motion: Rest Echo Findings The mid anterior and basal anterior zepeda were hypokinetic. The mid inferior lateral wall was not visualized. All other wall segments showed normal motion. Findings: Study Quality * Technically sub-optimal due to poor echocardiographic windows. ECG Findings * Normal sinus rhythm. Left Ventricle * LVEF 50-55%. * Atypical septal motion consistent with post-operative status. * Definity echo contrast was used. * There is no LV thrombus. * Indeterminate diastolic function. * Mildly dilated left ventricle. * Unable to adequately evaluate segmental wall motion due to technical quality. Right Ventricle * The right ventricle was not well visualized Left Atrium * Left atrium is not well visualized. Right Atrium * Right atrium is not well visualized. Aortic Valve * Aortic valve not well visualized. * Mildly calcified aortic valve leaflets. * No aortic stenosis. * No aortic regurgitation. Mitral Valve * Normal mitral valve structure. * No mitral regurgitation. * No mitral stenosis. * Mitral valve not well visualized. Tricuspid Valve * Trace tricuspid regurgitation. * No tricuspid stenosis. * Normal tricuspid valve structure. * Unable to estimate RVSP due to lack of TR jet. Pulmonic Valve * Pulmonic valve not well visualized. Aorta * Normally sized aortic root. Pericardium * The pericardium appears normal. IVC * The IVC is not well evaluated. Pulmonary Artery * Pulmonary artery not well visualized. Chest X-Ray 09/04/18 11:43 IMPRESSION: Again identified is cardiomegaly, vascular congestion and prominent interstitial change related to underlying suspected pulmonary edema. This appear similar, with a small left pleural effusion and basilar atelectasis. D/ / Noman Montgomery MD / Noman Montgomery MD Interpreting Provider: Noman Montgomery MD Chest CT 09/04/18 14:30 IMPRESSION: Stable chest with no change in appearance of the rounded density left lower lobe with pleural thickening suggesting round atelectasis. D/ / 09/04/2018 15:00:07 Gianluca Chua MD / anusha Interpreting Provider: Gianluca Chua MD Active Medications Acetaminophen (Tylenol) 650 mg PO Q6HR PRN PRN Reason: Fever Stop: 03/05/19 08:55 Last Admin: 09/03/18 10:14 Dose: 650 mg Documented by: Amlodipine Besylate (Norvasc) [facility] Stop: 03/05/19 09:01 Last Admin: 09/05/18 09:03 Dose: 10 mg Documented by: Aspirin (Aspirin Ec) 81 mg PO QAM [facility] Stop: 03/05/19 09:01 Last Admin: 09/05/18 09:02 Dose: 81 mg Documented by: Atorvastatin Calcium (Lipitor) 20 mg PO DAILY@2100 [facility] Stop: 03/04/19 21:01 Last Admin: 09/04/18 20:10 Dose: 20 mg Documented by: Clopidogrel Bisulfate (Plavix) 75 mg PO QAM [facility] Stop: 03/05/19 09:01 Last Admin: 09/05/18 09:03 Dose: 75 mg Documented by: Gabapentin (Neurontin) 600 mg PO TID [facility] Stop: 03/06/19 09:01 Last Admin: 09/05/18 09:04 Dose: 600 mg Documented by: Heparin Sodium (Porcine) (Heparin) 4,000 unit IVP Q6HR PRN PRN Reason: SEE COMMENTS Stop: 03/04/19 17:38 Heparin Sodium (Porcine) (Heparin) 2,000 unit IVP Q6H PRN PRN Reason: SEE COMMENTS Stop: 03/04/19 17:38 Last Admin: 09/04/18 00:49 Dose: 2,000 unit Documented by: Nitroglycerin (Nitroglycerin Premix 25 Mg/250 Ml) 25 mg in 250 mls @ 12 mls/hr IVC .[id number] [facility]; Protocol Stop: 03/04/19 13:16 Last Admin: 09/05/18 07:22 Dose: Not Given Documented by: Heparin Sodium/Dextrose (Heparin 25,000 Unit/250 Ml D5w) 25,000 unit in 250 mls @ 10.088 mls/hr IVC .Q24H [facility]; Protocol Stop: 03/04/19 17:46 Last Admin: 09/05/18 09:04 Dose: 16.02 unit/kg/hr, 20.2 mls/hr Documented by: Insulin Human Lispro (Humalog) 0 units SQ HS [facility]; Protocol Stop: 03/06/19 21:01 Last Admin: 09/04/18 20:03 Dose: Not Given Documented by: Insulin Human Lispro (Humalog) 0 units SQ TIDWM [facility]; Protocol Stop: 03/06/19 17:01 Last Admin: 09/05/18 09:03 Dose: 4 units Documented by: Isosorbide Mononitrate (Imdur) 30 mg PO QAM [facility] Stop: 03/05/19 09:01 Last Admin: 09/05/18 09:02 Dose: 30 mg Documented by: Losartan Potassium (Cozaar) 75 mg PO QPM [facility]; Protocol Stop: 03/04/19 18:01 Last Admin: 09/03/18 17:27 Dose: 75 mg Documented by: Metoprolol Tartrate (Lopressor) 50 mg PO BID [facility] Stop: 03/04/19 21:01 Last Admin: 09/05/18 09:02 Dose: 50 mg Documented by: Metoprolol Tartrate (Lopressor) 5 mg IVP Q6HR PRN PRN Reason: SEE COMMENTS Stop: 03/04/19 16:07 Naloxone HCl (Narcan) 0.4 mg IVP Q2MPRN PRN PRN Reason: SEE COMMENTS Stop: 03/04/19 16:04 Nitroglycerin (Nitroglycerin) 0.4 mg SL Q5MIN PRN PRN Reason: Chest Pain Stop: 03/04/19 16:07 Omeprazole (Prilosec) 20 mg PO DAILY@0630 [facility] Stop: 03/05/19 06:31 Last Admin: 09/05/18 09:03 Dose: 20 mg Documented by: Tamsulosin HCl (Flomax) 0.4 mg PO DAILY [facility]; Protocol Stop: 03/05/19 09:01 Last Admin: 09/05/18 09:02 Dose: 0.4 mg Documented by: Vitamin D (Vitamin D) 1,000 unit PO DAILY [facility] Stop: 03/05/19 09:01 Last Admin: 09/05/18 09:03 Dose: 1,000 unit Documented by: - Imaging and Cardiology Echo: report reviewed Cardiac cath: pending Consult Discharge Plan - Plan [facility] Care Provider[facility] - 09/23/18 11:15 am
--- NOTE | 2018-09-05 16:23 | Internal Med Progress Note ---
<Armando Nelson - Last Filed: 09/05/18 16:21> Hospitalist Progress Note - Encounter Date of Encounter: 09/05/18 Time of Encounter: 09:45 - Subjective Interval History: Patient was seen and examined at bedside today. He states that he is feeling well. Denies chest pain or shortness of breath. He is currently on heparin drip. Nitro drip has been discontinued. Cardiology and nephrology are both following. He will undergo a left heart catheterization when his volume status improves. Lasix is currently being held due to increasing creatinine in the setting of chronic kidney disease. Nephrology is consulted for further delvis mmendations. He has no complaints at this time. - Exam Vitals: Temp Pulse Resp BP Pulse Ox 97.7 F 58 18 122/71 97 09/05/18 11:21 09/05/18 11:21 09/05/18 11:21 09/05/18 11:21 09/05/18 11:21 Exam: General: A&O X3, conversant, no acute distress Head: atraumatic, normocephalic Eye: PERRL, EOMI, conjuntiva pink, sclera anicteric Neck: Supple, trachea midline; No lymphadenopathy Respiratory: Bibasilar crackles; no wheezes or rhonchi Cardiovascular: RRR, +S1, +S2; no murmurs, rubs, gallops Abdomen: Soft, nontender Extremities: warm, radial pulses palpable and symmetrical Psychiatric: Normal affect, normal mood Skin: Dry, intact - Assessment and Plan (1) NSTEMI (non-ST elevated myocardial infarction) Current Visit: Yes Status: Acute Assessment and Plan: ASSESSMENT - Patient initially presented with respiratory distress and chest discomfort after undergoing a stress test - Patient has a known history of coronary artery disease status post CABG 2 - [facility] 05/02: Severe 3 vessel disease, occlusion of 1 out of 2 bypass grafts, occluded SVG to OM, severe disease of mid to distal LAD distal to CALDERON attachment - EKG: ventricular trigeminy, nonspecific intraventricular delay, borderline repolarization abnormality - Troponin levels: 0.03, 0.77, 0.97, 0.94 - Patient has been successfully weaned off nitro drip; denies chest discomfort on physical exam PLAN - Continue medical management with ASA, statin, Plavix, Imdur, metoprolol - Currently on heparin drip - Cardiology following; once respiratory status has improved, patient will undergo [facility] - Nephrology consulted for diuretic recommendations in the setting of SUE on CKD (2) Acute decompensated heart failure Current Visit: Yes Status: Acute Assessment and Plan: ASSESSMENT - Initially with respiratory distress after lying flat for stress test - TTE 01/29: LVEF 45-50% - TTE 09/03/18: improved LVEF, 50-55% - CXR: central pulmonary vascular congestion - BNP: 293 - Continue Lasix for diuresis - Nephrology consult as patient renal function slightly worsening with diuresis PLAN - Fluid restriction of 1.8 L per day - Strict intake and output, daily weights - Nephrology on board; awaiting recommendations for diuresis in the setting of acute kidney injury - Supplemental O2 via nasal cannula when necessary; maintain SPO2 87-92% (3) Acute kidney injury superimposed on CKD Current Visit: Yes Status: Acute Assessment and Plan: ASSESSMENT: - Patient has had slightly worsening renal function in the setting of chronic kidney disease - Baseline creatinine per chart review is approximately 1.4-1.6 - Creatinine today is 1.78 - Losartan and Lasix being held PLAN: - Awaiting recommendations from nephrology - Avoid nephrotoxic agents (4) CKD (chronic kidney disease) stage 3, GFR 30-59 ml/min Current Visit: Yes Status: Chronic Assessment and Plan: - Plan as above (5) HTN (hypertension) Current Visit: Yes Status: Chronic Assessment and Plan: - Continue by mouth medications - Losartan being held due to acute kidney injury (6) T2DM (type 2 diabetes mellitus) Current Visit: Yes Status: Chronic Assessment and Plan: - ISS (7) DVT prophylaxis Current Visit: No Status: Acute Assessment and Plan: - On heparin drip - Time Spent with Patient Total time spent is greater than 50% in coordination of care (as documented) at patient's floor/unit and/or counseling patient: Internal Medicine: Result - Labs CBC & Chem 7: 09/05/18 00:54 09/05/18 00:54 Labs: Short CBC 09/05/18 Range/Units 00:54 WBC 9.5 (4.3-11.1) K/mcL Hgb 13.7 (12.9-16.9) g/dL Hct 43.9 (37.5-50.1) % Plt Count 172 (140-400) K/mcL Neutrophils # 6.7 (1.6-8.9) K/mcL BMP 09/05/18 00:54 Sodium 139 Potassium 4.3 Chloride 103 Carbon Dioxide 28 BUN 31 H Creatinine 1.78 H Glucose 197 H Calcium 8.9 - ABG Interpretation ABG results: PT/INR, D-dimer PT 11.5 Seconds (9.4-12.1) 09/02/18 17:44 Consult Discharge Plan - Plan [facility]errals: [facility] [Primary Care Provider] - 09/23/18 11:15 am <Shailesh Sands - Last Filed: 09/05/18 16:29> Hospitalist Progress Note - Encounter Date of Encounter: 09/05/18 - Exam Vitals: Temp Pulse Resp BP Pulse Ox 97.6 F 58 18 126/66 96 09/05/18 16:22 09/05/18 16:22 09/05/18 16:22 09/05/18 16:22 09/05/18 16:22 - Assessment and Plan (1) NSTEMI (non-ST elevated myocardial infarction) Current Visit: Yes Status: Acute (2) Acute decompensated heart failure Current Visit: Yes Status: Acute (3) Acute respiratory failure Current Visit: Yes Status: Acute (4) CKD (chronic kidney disease) stage 3, GFR 30-59 ml/min Current Visit: Yes Status: Chronic (5) HTN (hypertension) Current Visit: Yes Status: Chronic (6) T2DM (type 2 diabetes mellitus) Current Visit: Yes Status: Chronic (7) DVT prophylaxis Current Visit: No Status: Acute - Time Spent with Patient Total time spent is greater than 50% in coordination of care (as documented) at patient's floor/unit and/or counseling patient: Internal Medicine: Result - Labs CBC & Chem 7: 09/05/18 00:54 09/05/18 00:54 Labs: Short CBC 09/05/18 Range/Units 00:54 WBC 9.5 (4.3-11.1) K/mcL Hgb 13.7 (12.9-16.9) g/dL Hct 43.9 (37.5-50.1) % Plt Count 172 (140-400) K/mcL Neutrophils # 6.7 (1.6-8.9) K/mcL BMP 09/05/18 00:54 Sodium 139 Potassium 4.3 Chloride 103 Carbon Dioxide 28 BUN 31 H Creatinine 1.78 H Glucose 197 H Calcium 8.9 - ABG Interpretation ABG results: PT/INR, D-dimer PT 11.5 Seconds (9.4-12.1) 09/02/18 17:44 - Attending Attestation I examined this patient and my medical decision-making was reviewed with the Resident Physician. I agree with the documented findings, disposition and treatment plan as described except to the extent set forth below. <Armando Nelson - Last Filed: 09/05/18 16:21> (5) HTN (hypertension) Qualifiers: Hypertension type: essential hypertension Qualified Code(s): I10 - Essential (primary) hypertension (6) T2DM (type 2 diabetes mellitus) Qualifiers: Diabetes mellitus longterm insulin use: without longterm use Diabetes mellitus complication status: with kidney complications Diabetes mellitus complication detail: with chronic kidney disease Chronic kidney disease stage: stage 3 (moderate) Qualified Code(s): E11.22 - Type 2 diabetes mellitus with diabetic chronic kidney disease; N18.3 - Chronic kidney disease, stage 3 (moderate) <Shailesh Sands - Last Filed: 09/05/18 16:29> (3) Acute respiratory failure Qualifiers: Respiratory failure complication: hypoxia Qualified Code(s): J96.01 - Acute respiratory failure with hypoxia (5) HTN (hypertension) Qualifiers: Hypertension type: essential hypertension Qualified Code(s): I10 - Essential (primary) hypertension (6) T2DM (type 2 diabetes mellitus) Qualifiers: Diabetes mellitus longterm insulin use: without food preparer use Diabetes mellitus complication status: with kidney complications Diabetes mellitus complication detail: with chronic kidney disease Chronic kidney disease stage: stage 3 (moderate) Qualified Code(s): E11.22 - Type 2 diabetes mellitus with diabetic chronic kidney disease; N18.3 - Chronic kidney disease, stage 3 (moderate)
[2018-09-05 18:08] LABS: Bilirubin,Urine Negative (Negative); Blood,Urine Negative (Negative); Clarity,Urine Clear (Clear); Color,Urine Yellow (Yellow); Glucose,Urine (UA) Normal (Normal); Ketones,Urine Negative (Negative); Leukocyte Esterase,Urine Small (Negative); Nitrite,Urine Negative (Negative); PH,Urine 5.5 pH Units (5.0-8.0); Protein,Urine 100 mg/dL (Neg-Trace); Specific Gravity,Urine 1.022 (1.010-1.025); Urobilinogen,Urine Normal (Normal)
[2018-09-05 18:11] LABS: Bacteria,Urine None Seen per hpf (None-Few); Hyaline Casts,Urine None Seen per lpf (None-Few); RBC,Urine 0-3 per hpf (0-3); Squamous Epithelial Cell,Urine Moderate per lpf (None-Few)
[2018-09-06 07:44] LABS: Basophils # 0.1 K/mcL (0.0-0.2); Basophils % 0.7 %; Eosinophils # 0.3 K/mcL (0.0-0.6); Eosinophils % 3.8 %; Hematocrit 47.8 % (37.5-50.1); Hemoglobin 15.2 g/dL (12.9-16.9); Immature Granulocytes % 0.6 % (0-4); Lymphocytes % 12.6 %; Mean Corpuscular HGB Conc 31.8 g/dL (31.6-35.5); Mean Corpuscular Hemoglobin 27.6 pg (28.0-33.3); Mean Corpuscular Volume 86.9 fL (83.0-100.0); Mean Platelet Volume 11.8 fL (9.4-12.4); Monocytes # 0.8 K/mcL (0.0-1.3); Monocytes % 9.7 %; Neutrophils # 5.9 K/mcL (1.6-8.9); Platelet Count 168 K/mcL (140-400); Red Cell Distribution Width 15.1 % (11.5-14.5); Segmented Neutrophils % 72.6 %
--- NOTE | 2018-09-06 08:53 | Internal Med Progress Note ---
<Armando Nelson - Last Filed: 09/06/18 13:30> Hospitalist Progress Note - Encounter Date of Encounter: 09/06/18 Time of Encounter: 09:47 - Subjective Interval History: Patient was seen and examined at bedside. He was taken off oxygen via nasal cannula approximately 30 minutes ago. He states that since he has been off oxygen, he has been able to walk to the bathroom on his own without becoming short of breath. He states that he is feeling well. Denies having any chest pain, shortness of breath. No acute events overnight. Patients blood pressure has been elevated in the last 24 hours; will add PRN hydralazine for systolic blood pressure greater than 160. Plan is for left heart catheterization next week. Lungs are significantly improved on physical exam; no bibasilar crackles appreciated today. No complaints this time. - Exam Vitals: Temp Pulse Resp BP Pulse Ox 97.9 F 68 19 170/83 94 09/06/18 07:40 09/06/18 07:40 09/06/18 07:40 09/06/18 07:40 09/06/18 07:40 Exam: General: A&O X3, conversant, no acute distress Head: atraumatic, normocephalic Eye: PERRL, EOMI, conjuntiva pink, sclera anicteric Neck: Supple, trachea midline; No lymphadenopathy Respiratory: Clear to auscultation bilaterally; no wheezes or rhonchi Cardiovascular: RRR, +S1, +S2; no murmurs, rubs, gallops Abdomen: Soft, nontender Extremities: warm, radial pulses palpable and symmetrical Psychiatric: Normal affect, normal mood Skin: Dry, intact - Assessment and Plan (1) NSTEMI (non-ST elevated myocardial infarction) Current Visit: Yes Status: Acute Assessment and Plan: ASSESSMENT - Patient initially presented with respiratory distress and chest discomfort after undergoing a stress test - Patient has a known history of coronary artery disease status post CABG 2 - [facility] 05/02: Severe 3 vessel disease, occlusion of 1 out of 2 bypass grafts, occluded SVG to OM, severe disease of mid to distal LAD distal to CALDERON attachment - EKG: ventricular trigeminy, nonspecific intraventricular delay, borderline repolarization abnormality - Troponin levels: 0.03, 0.77, 0.97, 0.94 - Patient has been successfully weaned off nitro drip; denies chest discomfort on physical exam PLAN - Continue medical management with ASA, statin, Plavix, Imdur, metoprolol - Currently on heparin drip - Cardiology following; once respiratory status has improved, patient will undergo [facility] - Nephrology consulted for diuretic recommendations in the setting of SUE on CKD (2) Acute decompensated heart failure Current Visit: Yes Status: Acute Assessment and Plan: ASSESSMENT - Initially with respiratory distress after lying flat for stress test - TTE 01/29: LVEF 45-50% - TTE 09/03/18: improved LVEF, 50-55% - CXR: central pulmonary vascular congestion - BNP: 293 - Continue Lasix for diuresis - Nephrology consult as patient renal function slightly worsening with diuresis PLAN - Fluid restriction of 1.8 L per day - Strict intake and output, daily weights - Nephrology on board; awaiting recommendations for diuresis in the setting of acute kidney injury - Supplemental O2 via nasal cannula when necessary; maintain SPO2 87-92% (3) Acute kidney injury superimposed on CKD Current Visit: Yes Status: Acute Assessment and Plan: ASSESSMENT: - Patient has had slightly worsening renal function in the setting of chronic kidney disease - Baseline creatinine per chart review is approximately 1.4-1.6 - Creatinine today is 1.78 - Losartan and Lasix being held PLAN: - Awaiting recommendations from nephrology - Avoid nephrotoxic agents (4) CKD (chronic kidney disease) stage 3, GFR 30-59 ml/min Current Visit: Yes Status: Chronic Assessment and Plan: - Plan as above (5) HTN (hypertension) Current Visit: Yes Status: Chronic Assessment and Plan: - Continue by mouth medications - Losartan being held due to acute kidney injury - Hydralazine ordered this morning for systolic blood pressure > 160 (6) T2DM (type 2 diabetes mellitus) Current Visit: Yes Status: Chronic Assessment and Plan: - ISS (7) DVT prophylaxis Current Visit: No Status: Acute Assessment and Plan: - On heparin drip - Time Spent with Patient Total time spent is greater than 50% in coordination of care (as documented) at patient's floor/unit and/or counseling patient: Internal Medicine: Result - Labs CBC & Chem 7: 09/06/18 07:07 09/06/18 12:11 Labs: Short CBC 09/06/18 Range/Units 07:07 WBC 8.2 (4.3-11.1) K/mcL Hgb 15.2 D (12.9-16.9) g/dL Hct 47.8 (37.5-50.1) % Plt Count 168 (140-400) K/mcL Neutrophils # 5.9 (1.6-8.9) K/mcL Urine 09/05/18 Range/Units 17:53 Urine Color Yellow (Yellow) Urine Clarity Clear (Clear) Urine pH 5.5 (5.0-8.0) pH Units Ur Specific [place] 1.022 (1.010-1.025) Urine Protein 100 H (Neg-Trace) mg/dL Urine Glucose (UA) Normal (Normal) mg/dL - ABG Interpretation ABG results: PT/INR, D-dimer PT 11.5 Seconds (9.4-12.1) 09/02/18 17:44 - Impressions Impressions Chest CT 09/04/18 14:30 IMPRESSION: Stable chest with no change in appearance of the rounded density left lower lobe with pleural thickening suggesting round atelectasis. D/ / 09/04/2018 15:00:07 Gianluca Chua MD / anusha Interpreting Provider: Gianluca Chua MD Consult Discharge Plan - Plan [facility]: [facility] [[facility] Care Provider[facility] - 09/23/18 11:15 am <Shailesh Sands - Last Filed: 09/06/18 15:27> Hospitalist Progress Note - Encounter Date of Encounter: 09/06/18 - Exam Vitals: Temp Pulse Resp BP Pulse Ox 98.1 F 64 18 134/93 94 09/06/18 11:23 09/06/18 11:23 09/06/18 11:23 09/06/18 11:23 09/06/18 11:23 - Assessment and Plan (1) NSTEMI (non-ST elevated myocardial infarction) Current Visit: Yes Status: Acute (2) Acute decompensated heart failure Current Visit: Yes Status: Acute (3) Acute respiratory failure Current Visit: Yes Status: Acute (4) CKD (chronic kidney disease) stage 3, GFR 30-59 ml/min Current Visit: Yes Status: Chronic (5) HTN (hypertension) Current Visit: Yes Status: Chronic (6) T2DM (type 2 diabetes mellitus) Current Visit: Yes Status: Chronic (7) DVT prophylaxis Current Visit: No Status: Acute - Time Spent with Patient Total time spent is greater than 50% in coordination of care (as documented) at patient's floor/unit and/or counseling patient: Internal Medicine: Result - Labs CBC & Chem 7: 09/06/18 07:07 09/06/18 12:11 Labs: Short CBC 09/06/18 Range/Units 07:07 WBC 8.2 (4.3-11.1) K/mcL Hgb 15.2 D (12.9-16.9) g/dL Hct 47.8 (37.5-50.1) % Plt Count 168 (140-400) K/mcL Neutrophils # 5.9 (1.6-8.9) K/mcL BMP 09/06/18 12:11 Sodium 138 Potassium 4.4 Chloride 101 Carbon Dioxide 30 H BUN 28 H Creatinine 1.47 H Glucose 245 H Calcium 9.6 Urine 09/05/18 Range/Units 17:53 Urine Color Yellow (Yellow) Urine Clarity Clear (Clear) Urine pH 5.5 (5.0-8.0) pH Units Ur Specific [place] 1.022 (1.010-1.025) Urine Protein 100 H (Neg-Trace) mg/dL Urine Glucose (UA) Normal (Normal) mg/dL - ABG Interpretation ABG results: PT/INR, D-dimer PT 11.5 Seconds (9.4-12.1) 09/02/18 17:44 - Impressions Impressions Chest CT 09/04/18 14:30 IMPRESSION: Stable chest with no change in appearance of the rounded density left lower lobe with pleural thickening suggesting round atelectasis. D/ / 09/04/2018 15:00:07 Gianluca Chua MD / anusha Interpreting Provider: Gianluca Chua MD - Attending Attestation I examined this patient and my medical decision-making was reviewed with the Resident Physician. I agree with the documented findings, disposition and treatment plan as described except to the extent set forth below. <Armando Nelson - Last Filed: 09/06/18 13:30> (5) HTN (hypertension) Qualifiers: Hypertension type: essential hypertension Qualified Code(s): I10 - Essential (primary) hypertension (6) T2DM (type 2 diabetes mellitus) Qualifiers: Diabetes mellitus chain link fence installer insulin use: without chain link fence installer use Diabetes mellitus complication status: with kidney complications Diabetes mellitus complication detail: with chronic kidney disease Chronic kidney disease stage: stage 3 (moderate) Qualified Code(s): E11.22 - Type 2 diabetes mellitus with diabetic chronic kidney disease; N18.3 - Chronic kidney disease, stage 3 (moderate) <Shailesh Sands - Last Filed: 09/06/18 15:27> (3) Acute respiratory failure Qualifiers: Respiratory failure complication: hypoxia Qualified Code(s): J96.01 - Acute respiratory failure with hypoxia (5) HTN (hypertension) Qualifiers: Hypertension type: essential hypertension Qualified Code(s): I10 - Essential (primary) hypertension (6) T2DM (type 2 diabetes mellitus) Qualifiers: Diabetes mellitus chain link fence installer insulin use: without chain link fence installer use Diabetes mellitus complication status: with kidney complications Diabetes mellitus complication detail: with chronic kidney disease Chronic kidney disease stage: stage 3 (moderate) Qualified Code(s): E11.22 - Type 2 diabetes mellitus with diabetic chronic kidney disease; N18.3 - Chronic kidney disease, stage 3 (moderate)
[2018-09-06] MEDS: Gabapentin 300 MG CAPSULE PO SCH ×3 (09:11→20:24)
[2018-09-06] MEDS: Isosorbide MONOnitrate (24 HR) 60 MG TAB.ER.24H PO SCH (09:11)
[2018-09-06] MEDS: amLODIPine 5 MG TABLET PO SCH (09:11)
[2018-09-06] MEDS: Aspirin Enteric Coated 81 MG Tablet PO SCH (09:11)
[2018-09-06] MEDS: Cholecalciferol (D-3) 1,000 UNIT TABLET PO SCH (09:11)
[2018-09-06] MEDS: Insulin LISPRO 300 UNITS/3 ML VIAL SQ SCH ×4 (09:12→20:23)
--- NOTE | 2018-09-06 09:54 | Event Note ---
Date of Encounter: 09/06/18 Time of Encounter: 09:45 - Cardiology Event Note Laboratory Tests 09/06/18 07:07 Hgb 15.2 D Hct 47.8 No BMP noted-- will check in am. Off O2. Appears improving. On Hep gtt. Will eval for [facility] possibly Friday.
[2018-09-06] MEDS: Heparin 25,000 UNIT/250 ML D5W 25,000 UNIT/250 ML IV.SOLN IVC SCH ×2 (12:07→17:52)
[2018-09-06] MEDS ORDERED: Furosemide 40 MG/4 ML VIAL IVP ONE (12:18)
[2018-09-06 12:39] LABS: Calcium 9.6 mg/dL (8.6-10.3); Potassium 4.4 mEq/L (3.5-5.1)
[2018-09-06] MEDS ORDERED: Furosemide 20 MG/2 ML VIAL IVP ONE (13:27)
--- NOTE | 2018-09-06 16:02 | Nephrology Progress Note ---
Date of Encounter: 09/06/18 Time of Encounter: 12:00 - Assessment and Plan (1) SUE (acute kidney injury) Current Visit: Yes Status: Acute Scr improving at 1.47, GFR 47, which is essentially baseline UOP noted at 1000cc in the past 24hrs\ If LHC planned for friday, will start mucomyst 600mg bid tomorrow and also plann for IVF on friday (2) CKD (chronic kidney disease) stage 3, GFR 30-59 ml/min Current Visit: Yes Status: Chronic (3) Chest pain, rule out acute myocardial infarction Current Visit: No Status: Acute Subjective Principal diagnosis: CHF, chest pain Interval history: Pt seen and examined with no new complaints Objective - Vital Signs Vital signs: Vital Signs Temp Pulse Resp BP Pulse Ox 09/06/18 11:23 98.1 F 64 18 134/93 94 09/06/18 07:40 97.9 F 68 19 170/83 94 09/06/18 03:55 98.3 F 54 18 140/72 94 09/06/18 03:17 63 09/05/18 23:15 63 09/05/18 23:09 98.8 F 68 18 149/82 95 09/05/18 20:00 71 09/05/18 19:35 98.3 F 64 18 143/69 96 09/05/18 16:22 97.6 F 58 18 126/66 96 Intake and Output 09/06/18 09/06/18 09/06/18 07:59 15:59 23:59 Intake Total 100 / 590 490 / 590 Output Total 500 / 900 400 / 900 Balance -400 / -310 90 / -310 Intake: IV Fluids 250 / 250 Heparin 25,000 UNIT/250 ML D5W 250 / 250 25,000 unit In 250 ml @ 8 UNIT/ KG/HR 10.088 mls/hr IVC .Q24H [facility] Rx#:[id number] Oral 100 / 340 240 / 340 Output: Urine 500 / 900 400 / 900 Other: Meal Breakfast Percent of Meal Consumed 100% Stool Size Moderate Stool Consistency formed Stool Color Brown # Voids 1 # Bowel Movements 1 Weight 112 kg Blood Glucose* 237 238 Patient Weight 09/06/18 23:59 Weight 112 kg - Lab 09/06/18 07:07 09/06/18 12:11 Most recent lab results 09/06/18 12:11 Calcium 9.6 Consult Discharge Plan - Plan Referrals: [facility],PCP [Primary Care Provider] - 09/23/18 11:15 am
[2018-09-07] MEDS: Heparin 25,000 UNIT/250 ML D5W 25,000 UNIT/250 ML IV.SOLN IVC SCH ×2 (02:01→17:19)
[2018-09-07] MEDS: Isosorbide MONOnitrate (24 HR) 60 MG TAB.ER.24H PO SCH (07:53)
[2018-09-07] MEDS: Aspirin Enteric Coated 81 MG Tablet PO SCH (07:53)
[2018-09-07] MEDS: Gabapentin 300 MG CAPSULE PO SCH ×3 (07:53→22:28)
[2018-09-07] MEDS: amLODIPine 5 MG TABLET PO SCH (07:53)
[2018-09-07] MEDS: Cholecalciferol (D-3) 1,000 UNIT TABLET PO SCH (07:53)
[2018-09-07] MEDS: Insulin LISPRO 300 UNITS/3 ML VIAL SQ SCH ×4 (07:54→22:35)
--- NOTE | 2018-09-07 09:02 | Cardiology Progress Note ---
Date of Encounter: 09/07/18 Time of Encounter: 08:10 Assessment and Plan (1) NSTEMI (non-ST elevated myocardial infarction) Current Visit: Yes Status: Acute Per Cardiology: NSTEMI with peak troponin 0.97. TTE 01/2018 with LVEF 45-50%, global hypokinesis, mildly dilated LV, moderate diastolic dysfunction, RV dilated and hypokinetic. Repeat TTE improved LVEF, 50-55%. Per previous notes: LHC 04/2018 with 80% distal LM, 99% prox LAD, 100% mid LAD, 100% diagonal 2, 100% mid circ, 70% OM1, 99% prox RCA, RCA with collaterals from left to right, CALDERON to LAD with 75% stenosis distal to anastamosis, SVG to OM occluded. Stress test results reviewed with Dr. Hensley; plan for LHC most likely tomorrow. Nephrology following-- will start mucomyst per recs. CP free. On asa, statin, BB, imdur, plavix, heparin drip. (2) CKD (chronic kidney disease) stage 3, GFR 30-59 ml/min Current Visit: Yes Status: Chronic Per Cardiology: Possible LHC tomorrow. Nephrology following. Discussion w patient/family: The assessment and plan as outlined above was discussed with the patient and/or family members who expressed understanding and agreement. All questions were an swered. Thank you for involving us in the care of your patient. Please call with any questions. Subjective Principal diagnosis: CHF, chest pain Interval history: Denies any chest pain, short of breath, palpitations. Reports edema and shortness of breath have overall improved. Objective Vital Signs, Last 4 Hours Temp Pulse Resp BP Pulse Ox 09/07/18 08:10 64 93 09/07/18 07:30 97.9 F 69 18 143/79 92 General: Conversant, No Apparent Distress HEENT: Atraumatic, Normocephaly, Mucus Membranes Moist Neck: No JVD, Normal carotid pulses Cardiac: Reg Rate and Rhythm, Normal S1 and S2, No Murmur Lungs: Normal Breath Sounds, No Wheeze, Rales, Rhonchi Neuro: Alert and responsive, No focal deficits noted Abdomen: Soft, Non-Tender Skin: No rashes noted on visualized skin Musculoskeletal: No Chest Wall Tenderness Extremities: No Clubbing, No Cyanosis, No Edema, Normal Pulses Results 09/06/18 07:07 09/06/18 12:11 Lab Results Laboratory Tests 09/06/18 12:11 Creatinine 1.47 H Est GFR (Non-Af Amer) 47 L Active Medications Acetaminophen (Tylenol) 650 mg PO Q6HR PRN PRN Reason: Fever Stop: 03/05/19 08:55 Last Admin: 09/03/18 10:14 Dose: 650 mg Documented by: Amlodipine Besylate (Norvasc) 10 mg PO [facility] Stop: 03/05/19 09:01 Last Admin: 09/07/18 07:53 Dose: 10 mg Documented by: Aspirin (Aspirin Ec) 81 mg PO [facility] Stop: 03/05/19 09:01 Last Admin: 09/07/18 07:53 Dose: 81 mg Documented by: Atorvastatin Calcium (Lipitor) 20 mg PO DAILY@2100 [facility] Stop: 03/04/19 21:01 Last Admin: 09/06/18 20:24 Dose: 20 mg Documented by: Clopidogrel Bisulfate (Plavix) 75 mg PO [facility] Stop: 03/05/19 09:01 Last Admin: 09/07/18 07:53 Dose: 75 mg Documented by: Gabapentin (Neurontin) 600 mg PO TID [facility] Stop: 03/06/19 09:01 Last Admin: 09/07/18 07:53 Dose: 600 mg Documented by: Heparin Sodium (Porcine) (Heparin) 4,000 unit IVP Q6HR PRN PRN Reason: SEE COMMENTS Stop: 03/04/19 17:38 Heparin Sodium (Porcine) (Heparin) 2,000 unit IVP Q6H PRN PRN Reason: SEE COMMENTS Stop: 03/04/19 17:38 Last Admin: 09/04/18 00:49 Dose: 2,000 unit Documented by: Hydralazine HCl (Hydralazine) 10 mg IVP Q6HR PRN PRN Reason: Hypertension Stop: 03/08/19 07:53 Heparin Sodium/Dextrose (Heparin 25,000 Unit/250 Ml D5w) 25,000 unit in 250 mls @ 10.088 mls/hr IVC .Q24H [facility]; Protocol Stop: 03/04/19 17:46 Last Admin: 09/07/18 02:01 Dose: 16.02 unit/kg/hr, 20.2 mls/hr Documented by: Insulin Human Lispro (Humalog) 0 units SQ HS [facility]; Protocol Stop: 03/06/19 21:01 Last Admin: 09/06/18 20:23 Dose: 3 units Documented by: Insulin Human Lispro (Humalog) 0 units SQ TIDWM [facility]; Protocol Stop: 03/06/19 17:01 Last Admin: 09/07/18 07:54 Dose: 4 units Documented by: Isosorbide Mononitrate (Imdur) 30 mg PO QAM [facility] Stop: 03/05/19 09:01 Last Admin: 09/07/18 07:53 Dose: 30 mg Documented by: Losartan Potassium (Cozaar) 75 mg PO QPM [facility]; Protocol Stop: 03/04/19 18:01 Last Admin: 09/03/18 17:27 Dose: 75 mg Documented by: Metoprolol Tartrate (Lopressor) 50 mg PO BID [facility] Stop: 03/04/19 21:01 Last Admin: 09/07/18 07:53 Dose: 50 mg Documented by: Metoprolol Tartrate (Lopressor) 5 mg IVP Q6HR PRN PRN Reason: SEE COMMENTS Stop: 03/04/19 16:07 Naloxone HCl (Narcan) 0.4 mg IVP Q2MPRN PRN PRN Reason: SEE COMMENTS Stop: 03/04/19 16:04 Nitroglycerin (Nitroglycerin) 0.4 mg SL Q5MIN PRN PRN Reason: Chest Pain Stop: 03/04/19 16:07 Omeprazole (Prilosec) 20 mg PO DAILY@0630 [facility] Stop: 03/05/19 06:31 Last Admin: 09/07/18 05:52 Dose: 20 mg Documented by: Tamsulosin HCl (Flomax) 0.4 mg PO DAILY [facility]; Protocol Stop: 03/05/19 09:01 Last Admin: 09/07/18 07:53 Dose: 0.4 mg Documented by: Vitamin D (Vitamin D) 1,000 unit PO DAILY [facility] Stop: 03/05/19 09:01 Last Admin: 09/07/18 07:53 Dose: 1,000 unit Documented by: - Imaging and Cardiology Cardiac cath: pending Consult Discharge Plan - Plan [facility]errals: [facility] [Primary Care Provider] - 09/23/18 11:15 am
--- NOTE | 2018-09-07 10:05 | Internal Med Progress Note ---
<Armando Nelson - Last Filed: 09/07/18 13:30> Hospitalist Progress Note - Encounter Date of Encounter: 09/07/18 Time of Encounter: 10:05 - Subjective Interval History: Patient will likely undergo left heart catheterization tomorrow. Nephrology following for recommendations regarding acute kidney injury on chronic kidney disease. Vital signs are currently stable; he is satting at 93% on room air. He has no complaints today. - Exam Vitals: Temp Pulse Resp BP Pulse Ox 97.9 F 64 18 143/79 93 09/07/18 07:30 09/07/18 08:10 09/07/18 07:30 09/07/18 07:30 09/07/18 08:10 Exam: General: A&O X3, conversant, no acute distress Head: atraumatic, normocephalic Eye: PERRL, EOMI, conjuntiva pink, sclera anicteric Neck: Supple, trachea midline; No lymphadenopathy Respiratory: Clear to auscultation bilaterally; no wheezes or rhonchi Cardiovascular: RRR, +S1, +S2; no murmurs, rubs, gallops Abdomen: Soft, nontender Extremities: warm, radial pulses palpable and symmetrical Psychiatric: Normal affect, normal mood Skin: Dry, intact - Assessment and Plan (1) NSTEMI (non-ST elevated myocardial infarction) Current Visit: Yes Status: Acute Assessment and Plan: ASSESSMENT - Patient initially presented with respiratory distress and chest discomfort after undergoing a stress test - Patient has a known history of coronary artery disease status post CABG 2 - [facility] 05/02: Severe 3 vessel disease, occlusion of 1 out of 2 bypass grafts, occluded SVG to OM, severe disease of mid to distal LAD distal to CALDERON attachment - EKG: ventricular trigeminy, nonspecific intraventricular delay, borderline repolarization abnormality - Troponin levels: 0.03, 0.77, 0.97, 0.94 - Patient has been successfully weaned off nitro drip; denies chest discomfort on physical exam PLAN - Continue medical management with ASA, statin, Plavix, Imdur, metoprolol - Currently on heparin drip - Cardiology following; once respiratory status has improved, patient will u ndergo [facility] - Nephrology consulted for diuretic recommendations in the setting of SUE on CKD (2) Acute decompensated heart failure Current Visit: Yes Status: Acute Assessment and Plan: ASSESSMENT - Initially with respiratory distress after lying flat for stress test - TTE 01/29: LVEF 45-50% - TTE 09/03/18: improved LVEF, 50-55% - CXR: central pulmonary vascular congestion - BNP: 293 - Continue Lasix for diuresis - Nephrology consult as patient renal function slightly worsening with diuresis PLAN - Fluid restriction of 1.8 L per day - Strict intake and output, daily weights - Nephrology on board; awaiting recommendations for diuresis in the setting of acute kidney injury - Supplemental O2 via nasal cannula when necessary; maintain SPO2 87-92% (3) Acute kidney injury superimposed on CKD Current Visit: Yes Status: Acute Assessment and Plan: ASSESSMENT: - Patient has had slightly worsening renal function in the setting of chronic kidney disease - Baseline creatinine per chart review is approximately 1.4-1.6 - Losartan and Lasix being held PLAN: - Awaiting recommendations from nephrology - Avoid nephrotoxic agents (4) CKD (chronic kidney disease) stage 3, GFR 30-59 ml/min Current Visit: Yes Status: Chronic Assessment and Plan: - Plan as above (5) HTN (hypertension) Current Visit: Yes Status: Chronic Assessment and Plan: - Continue by mouth medications - Losartan being held due to acute kidney injury - Hydralazine ordered this morning for systolic blood pressure > 160 (6) T2DM (type 2 diabetes mellitus) Current Visit: Yes Status: Chronic Assessment and Plan: - ISS (7) DVT prophylaxis Current Visit: No Status: Acute Assessment and Plan: - On heparin drip - Time Spent with Patient Total time spent is greater than 50% in coordination of care (as documented) at patient's floor/unit and/or counseling patient: Internal Medicine: Result - Labs CBC & Chem 7: 09/06/18 07:07 09/06/18 12:11 Labs: BMP 09/06/18 12:11 Sodium 138 Potassium 4.4 Chloride 101 Carbon Dioxide 30 H BUN 28 H Creatinine 1.47 H Glucose 245 H Calcium 9.6 - ABG Interpretation ABG results: PT/INR, D-dimer PT 11.5 Seconds (9.4-12.1) 09/02/18 17:44 Consult Discharge Plan - Plan [facility]errals: [facility] [Primary Care Provider] - 09/23/18 11:15 am <Shailesh Sands - Last Filed: 09/07/18 13:54> Hospitalist Progress Note - Encounter Date of Encounter: 09/07/18 - Exam Vitals: Temp Pulse Resp BP Pulse Ox 97.9 F 60 18 141/73 93 09/07/18 12:15 09/07/18 12:15 09/07/18 12:15 09/07/18 12:15 09/07/18 12:15 - Assessment and Plan (1) NSTEMI (non-ST elevated myocardial infarction) Current Visit: Yes Status: Acute (2) Acute decompensated heart failure Current Visit: Yes Status: Acute (3) Acute respiratory failure Current Visit: Yes Status: Acute (4) CKD (chronic kidney disease) stage 3, GFR 30-59 ml/min Current Visit: Yes Status: Chronic (5) HTN (hypertension) Current Visit: Yes Status: Chronic (6) T2DM (type 2 diabetes mellitus) Current Visit: Yes Status: Chronic (7) DVT prophylaxis Current Visit: No Status: Acute - Time Spent with Patient Total time spent is greater than 50% in coordination of care (as documented) at patient's floor/unit and/or counseling patient: Internal Medicine: Result - Labs CBC & Chem 7: 09/06/18 07:07 09/07/18 10:56 Labs: BMP 09/07/18 10:56 Sodium 136 Potassium 4.3 Chloride 100 Carbon Dioxide 28 BUN 30 H Creatinine 1.51 H Glucose 283 H Calcium 9.3 - ABG Interpretation ABG results: PT/INR, D-dimer PT 11.5 Seconds (9.4-12.1) 09/02/18 17:44 - Attending Attestation I examined this patient and my medical decision-making was reviewed with the Resident Physician. I agree with the documented findings, disposition and treatment plan as described except to the extent set forth below. <Omar,Armando - Last Filed: 09/07/18 13:30> (5) HTN (hypertension) Qualifiers: Hypertension type: essential hypertension Qualified Code(s): I10 - Essential (primary) hypertension (6) T2DM (type 2 diabetes mellitus) Qualifiers: Diabetes mellitus exterminator insulin use: without exterminator use Diabetes mellitus complication status: with kidney complications Diabetes mellitus complication detail: with chronic kidney disease Chronic kidney disease stage: stage 3 (moderate) Qualified Code(s): E11.22 - Type 2 diabetes mellitus with diabetic chronic kidney disease; N18.3 - Chronic kidney disease, stage 3 (moderate) <Shailesh Sands - Last Filed: 09/07/18 13:54> (3) Acute respiratory failure Qualifiers: Respiratory failure complication: hypoxia Qualified Code(s): J96.01 - Acute respiratory failure with hypoxia (5) HTN (hypertension) Qualifiers: Hypertension type: essential hypertension Qualified Code(s): I10 - Essential (primary) hypertension (6) T2DM (type 2 diabetes mellitus) Qualifiers: Diabetes mellitus exterminator insulin use: without exterminator use Diabetes mellitus complication status: with kidney complications Diabetes mellitus complication detail: with chronic kidney disease Chronic kidney disease stage: stage 3 (moderate) Qualified Code(s): E11.22 - Type 2 diabetes mellitus with diabetic chronic kidney disease; N18.3 - Chronic kidney disease, stage 3 (moderate)
[2018-09-07] MEDS ORDERED: Nitroglycerin 0.4 MG TAB.SUBL SL PRN (10:59)
[2018-09-07] MEDS ORDERED: Simethicone 80 MG TAB.CHEW PO PRN (10:59)
[2018-09-07] MEDS ORDERED: Ketoconazole 2% CRM 15 GM TUBE TP PRN (10:59)
[2018-09-07] MEDS ORDERED: Ammonium Lactate 30 APPL/225 GM BOTTLE TP PRN (10:59)
[2018-09-07] MEDS: *HR* Acetylcysteine 20% 600 MG/3 ML ORAL SYRINGE PO SCH ×2 (11:27→22:28)
[2018-09-07 11:34] LABS: Calcium 9.3 mg/dL (8.6-10.3); Potassium 4.3 mEq/L (3.5-5.1)
[2018-09-07] MEDS: Artificial Tears SOLN 15 ML BOTTLE BOTH EYES SCH ×2 (12:49→22:28)
[2018-09-07] MEDS: Acetaminophen 325 MG TABLET PO PRN (22:33)
--- NOTE | 2018-09-07 23:31 | Nephrology Progress Note ---
Date of Encounter: 09/07/18 Time of Encounter: 15:00 - Assessment and Plan (1) SUE (acute kidney injury) Current Visit: Yes Status: Acute Scr about the same 1.51, GFR 46, which is essentially baseline UOP noted at 2450cc in the past 24hrs If LHC planned for friday, continue mucomyst 600mg bid for 2 days starting already started by cardiology and also plan for gentle IVF on friday (2) Chest pain, rule out acute myocardial infarction Current Visit: No Status: Acute LHC tentatively tomorrow Discussed at length risks/benefits of iv contrast exposure (3) CKD (chronic kidney disease) stage 3, GFR 30-59 ml/min Current Visit: Yes Status: Chronic GFR at baseline in the 40s Subjective Principal diagnosis: CHF, chest pain Interval history: Pt seen and examined with no new complaints, sitting up in chair. Family at bedside Objective - Vital Signs Vital signs: Vital Signs Temp Pulse Resp BP Pulse Ox 09/07/18 23:01 74 93 09/07/18 20:03 98.0 F 68 18 156/91 94 09/07/18 16:15 97.8 F 62 18 150/83 95 09/07/18 12:15 97.9 F 60 18 141/73 93 09/07/18 11:30 62 09/07/18 08:10 64 93 09/07/18 07:30 97.9 F 69 18 143/79 92 09/07/18 03:25 98.4 F 61 18 150/75 92 Intake and Output 09/07/18 09/07/18 09/07/18 07:59 15:59 23:59 Intake Total 250 / 1490 821 / 1490 419 / 1490 Output Total 1175 / 1875 700 / 1875 Balance -925 / -385 821 / -385 -281 / -385 Intake: IV Fluids 250 / 500 191 / 500 59 / 500 Heparin 25,000 UNIT/250 ML D5W 250 / 500 191 / 500 59 / 500 25,000 unit In 250 ml @ 8 UNIT/ KG/HR 10.088 mls/hr IVC .Q24H [facility] Rx#:[id number] Oral 630 / 990 360 / 990 Output: Urine 1175 / 1875 700 / 1875 Other: Meal Lunch Dinner Percent of Meal Consumed 100% 100% Weight 113.2 kg Blood Glucose* 206 288 283 Patient Weight 09/07/18 23:59 Weight 113.2 kg - General Appearance General appearance: Present: well-developed, well-nourished, obese EENT: Present: ATNC, mucous membranes moist Neck: Present: no JVD, supple Additional Comments: good areation with slightly decreased BS bases bilat Cardiology: Present: edema (trace LE bilat), normal S1, normal S2 Gastrointestinal: Present: no tenderness, no guarding, obese Integumentary: Present: warm and dry Neurologic: Present: no focal deficit Musculoskeletal: Present: no deformities Psychiatric: Present: mood/affect appropriate, cooperative - Lab 09/06/18 07:07 09/07/18 10:56 Most recent lab results 09/07/18 10:56 Calcium 9.3 Consult Discharge Plan - Plan Referrals: [facility] [Primary Care Provider] - 09/23/18 11:15 am
[2018-09-08] MEDS: Heparin 25,000 UNIT/250 ML D5W 25,000 UNIT/250 ML IV.SOLN IVC SCH ×2 (06:22→21:26)
[2018-09-08] MEDS: Gabapentin 300 MG CAPSULE PO SCH ×4 (07:40→21:12)
[2018-09-08] MEDS: Cholecalciferol (D-3) 1,000 UNIT TABLET PO SCH (07:40)
[2018-09-08] MEDS: Aspirin Enteric Coated 81 MG Tablet PO SCH (07:40)
[2018-09-08] MEDS: *HR* Acetylcysteine 20% 600 MG/3 ML ORAL SYRINGE PO SCH ×2 (07:41→21:12)
[2018-09-08] MEDS: amLODIPine 5 MG TABLET PO SCH (07:41)
[2018-09-08] MEDS: Isosorbide MONOnitrate (24 HR) 60 MG TAB.ER.24H PO SCH (07:41)
[2018-09-08] MEDS: Insulin LISPRO 300 UNITS/3 ML VIAL SQ SCH ×4 (08:20→21:14)
[2018-09-08] MEDS: Artificial Tears SOLN 15 ML BOTTLE BOTH EYES SCH ×3 (08:32→21:12)
[2018-09-08 09:11] LABS: Calcium 9.4 mg/dL (8.6-10.3); Potassium 4.4 mEq/L (3.5-5.1)
--- NOTE | 2018-09-08 09:15 | Event Note ---
Date of Encounter: 09/08/18 Time of Encounter: 08:30 - Cardiology Event Note Laboratory Tests 09/07/18 10:56 Creatinine 1.51 H Est GFR (Non-Af Amer) 46 L Case being reviewed with Dr. Linda Diego, possible LHC today vs. tomorrow. Reports had some CP/SOB last night and received some SL NTG. Currently no CP.
--- NOTE | 2018-09-08 14:36 | Internal Med Progress Note ---
<OmarArmando - Last Filed: 09/08/18 14:36> Hospitalist Progress Note - Encounter Date of Encounter: 09/08/18 Time of Encounter: 09:13 - Subjective Interval History: Patient seen and examined at bedside this morning. He states that he is feeling well. Denies having any shortness of breath or chest pain. Per cardiology event note, patient will be going for an [facility] tomorrow. Nephrology is following for diuresis. His renal function seems to be improving; creatinine today is 1.46 from 1.51. Overall he is feeling well and has no complaints. - Exam Vitals: Temp Pulse Resp BP Pulse Ox 97.7 F 67 18 143/78 96 09/08/18 11:15 09/08/18 11:15 09/08/18 11:15 09/08/18 11:15 09/08/18 11:15 Exam: General: A&O X3, conversant, no acute distress Head: atraumatic, normocephalic Eye: PERRL, EOMI, conjuntiva pink, sclera anicteric Neck: Supple, trachea midline; No lymphadenopathy Respiratory: Clear to auscultation bilaterally; no wheezes or rhonchi Cardiovascular: RRR, +S1, +S2; no murmurs, rubs, gallops Abdomen: Soft, nontender Extremities: warm, radial pulses palpable and symmetrical Psychiatric: Normal affect, normal mood Skin: Dry, intact - Assessment and Plan (1) NSTEMI (non-ST elevated myocardial infarction) Current Visit: Yes Status: Acute Assessment and Plan: ASSESSMENT - Patient initially presented with respiratory distress and chest discomfort after undergoing a stress test - Patient has a known history of coronary artery disease status post CABG 2 - [facility] 05/02: Severe 3 vessel disease, occlusion of 1 out of 2 bypass grafts, occluded SVG to OM, severe disease of mid to distal LAD distal to CALDERON attachment - EKG: ventricular trigeminy, nonspecific intraventricular delay, borderline repolarization abnormality - Troponin levels: 0.03, 0.77, 0.97, 0.94 - Patient has been successfully weaned off nitro drip; denies chest discomfort on physical exam PLAN - Continue medical management with ASA, statin, Plavix, Imdur, metoprolol - Cardiology following; plan is for [facility] tomorrow - Nephrology consulted for diuretic recommendations in the setting of SUE on CKD (2) Acute decompensated heart failure Current Visit: Yes Status: Acute Assessment and Plan: ASSESSMENT - Initially with respiratory distress after lying flat for stress test - TTE 01/29: LVEF 45-50% - TTE 09/03/18: improved LVEF, 50-55% - CXR: central pulmonary vascular congestion - BNP: 293 - Continue Lasix for diuresis - Nephrology consult as patient renal function slightly worsening with diuresis PLAN - Fluid restriction of 1.8 L per day - Strict intake and output, daily weights - Nephrology following for management of diuresis - Supplemental O2 via nasal cannula when necessary; maintain SPO2 87-92% (3) Acute kidney injury superimposed on CKD Current Visit: Yes Status: Acute Assessment and Plan: ASSESSMENT: - Patient has had slightly worsening renal function in the setting of chronic kidney disease - Baseline creatinine per chart review is approximately 1.4-1.6 - Losartan and Lasix being held PLAN: - Awaiting recommendations from nephrology - Avoid nephrotoxic agents (4) CKD (chronic kidney disease) stage 3, GFR 30-59 ml/min Current Visit: Yes Status: Chronic Assessment and Plan: - Plan as above (5) HTN (hypertension) Current Visit: Yes Status: Chronic Assessment and Plan: - Continue home medications (6) T2DM (type 2 diabetes mellitus) Current Visit: Yes Status: Chronic Assessment and Plan: - ISS (7) DVT prophylaxis Current Visit: No Status: Acute Assessment and Plan: - Heparin - Time Spent with Patient Total time spent is greater than 50% in coordination of care (as documented) at patient's floor/unit and/or counseling patient: Internal Medicine: Result - Labs CBC & Chem 7: 09/06/18 07:07 09/08/18 08:26 Labs: BMP 09/08/18 08:26 Sodium 137 Potassium 4.4 Chloride 101 Carbon Dioxide 27 BUN 29 H Creatinine 1.46 H Glucose 317 H Calcium 9.4 - ABG Interpretation ABG results: PT/INR, D-dimer PT 11.5 Seconds (9.4-12.1) 09/02/18 17:44 Consult Discharge Plan - Plan [facility]: [facility] - 09/23/18 11:15 am <Shailesh Sands - Last Filed: 09/08/18 22:36> Hospitalist Progress Note - Encounter Date of Encounter: 09/08/18 - Exam Vitals: Temp Pulse Resp BP Pulse Ox 97.6 F 71 16 152/85 95 09/08/18 19:38 09/08/18 19:38 09/08/18 19:38 09/08/18 19:38 09/08/18 19:38 - Assessment and Plan (1) NSTEMI (non-ST elevated myocardial infarction) Current Visit: Yes Status: Acute (2) Acute decompensated heart failure Current Visit: Yes Status: Acute (3) Acute respiratory failure Current Visit: Yes Status: Acute (4) CKD (chronic kidney disease) stage 3, GFR 30-59 ml/min Current Visit: Yes Status: Chronic (5) HTN (hypertension) Current Visit: Yes Status: Chronic (6) T2DM (type 2 diabetes mellitus) Current Visit: Yes Status: Chronic (7) DVT prophylaxis Current Visit: No Status: Acute - Time Spent with Patient Total time spent is greater than 50% in coordination of care (as documented) at patient's floor/unit and/or counseling patient: Internal Medicine: Result - Labs CBC & Chem 7: 09/06/18 07:07 09/08/18 08:26 Labs: BMP 09/08/18 08:26 Sodium 137 Potassium 4.4 Chloride 101 Carbon Dioxide 27 BUN 29 H Creatinine 1.46 H Glucose 317 H Calcium 9.4 - ABG Interpretation ABG results: PT/INR, D-dimer PT 11.5 Seconds (9.4-12.1) 09/02/18 17:44 - Attending Attestation I examined this patient and my medical decision-making was reviewed with the Resident Physician. I agree with the documented findings, disposition and treatment plan as described except to the extent set forth below. Pending C, diuresis per Nephrology. Patient overall doing better. Has some fatigue, d/w patient and nursing increase activity as tolerated. <Armando Nelson - Last Filed: 09/08/18 14:36> (5) HTN (hypertension) Qualifiers: Hypertension type: essential hypertension Qualified Code(s): I10 - Essential (primary) hypertension (6) T2DM (type 2 diabetes mellitus) Qualifiers: Diabetes mellitus terminal supervisor insulin use: without senior living use Diabetes mellitus complication status: with kidney complications Diabetes mellitus complication detail: with chronic kidney disease Chronic kidney disease stage: stage 3 (moderate) Qualified Code(s): E11.22 - Type 2 diabetes mellitus with diabetic chronic kidney disease; N18.3 - Chronic kidney disease, stage 3 (moderate) <Shailesh Sands - Last Filed: 09/08/18 22:36> (3) Acute respiratory failure Qualifiers: Respiratory failure complication: hypoxia Qualified Code(s): J96.01 - Acute respiratory failure with hypoxia (5) HTN (hypertension) Qualifiers: Hypertension type: essential hypertension Qualified Code(s): I10 - Essential (primary) hypertension (6) T2DM (type 2 diabetes mellitus) Qualifiers: Diabetes mellitus terminal supervisor insulin use: without senior living use Diabetes mellitus complication status: with kidney complications Diabetes mellitus complication detail: with chronic kidney disease Chronic kidney disease stage: stage 3 (moderate) Qualified Code(s): E11.22 - Type 2 diabetes mellitus with diabetic chronic kidney disease; N18.3 - Chronic kidney disease, stage 3 (moderate)
--- NOTE | 2018-09-08 22:46 | Nephrology Progress Note ---
Date of Encounter: 09/08/18 Time of Encounter: 15:00 - Assessment and Plan (1) SUE (acute kidney injury) Current Visit: Yes Status: Acute Scr stable at 1.46, GFR 48,baseline UOP noted at 1875cc in the past 24hrs If [facility] planned for friday, continue mucomyst 600mg bid for 2 days starting already started by cardiology and also plan for gentle IVF on friday (2) Chest pain, rule out acute myocardial infarction Current Visit: No Status: Acute (3) CKD (chronic kidney disease) stage 3, GFR 30-59 ml/min Current Visit: Yes Status: Chronic Subjective Principal diagnosis: CHF, chest pain Interval history: Pt seen and examined with no new complaints, sitting up in chair. [facility] rescheduled for tomorrow Objective - Vital Signs Vital signs: Vital Signs Temp Pulse Resp BP Pulse Ox 09/08/18 19:38 97.6 F 71 16 152/85 95 09/08/18 16:11 97.7 F 71 18 144/79 98 09/08/18 11:15 97.7 F 67 18 143/78 96 09/08/18 07:13 97.8 F 60 23 152/81 97 09/08/18 03:07 98.3 F 73 29 148/71 93 09/07/18 23:51 98.2 F 74 18 167/86 92 09/07/18 23:01 74 93 Intake and Output 09/08/18 09/08/18 09/08/18 07:59 15:59 23:59 Intake Total 250 / 1240 0 / 1240 990 / 1240 Output Total 550 / 1550 700 / 1550 300 / 1550 Balance -300 / -310 -700 / -310 690 / -310 Intake: IV Fluids 250 / 500 250 / 500 Heparin 25,000 UNIT/250 ML D5W 250 / 500 250 / 500 25,000 unit In 250 ml @ 8 UNIT/ KG/HR 10.088 mls/hr IVC .Q24H [facility] Rx#:[id number] Oral 0 / 740 740 / 740 Output: Urine 550 / 1550 700 / 1550 300 / 1550 Other: Meal NPO Dinner Percent of Meal Consumed 0% 100% Blood Glucose* 334 250 255 - Lab 09/06/18 07:07 09/08/18 08:26 Consult Discharge Plan - Plan Referrals: [facility] [Primary Care Provider] - 09/23/18 11:15 am
--- NOTE | 2018-09-09 08:30 | Internal Med Progress Note ---
<Syeda Benavides - Last Filed: 09/09/18 16:50> Hospitalist Progress Note - Encounter Date of Encounter: 09/09/18 - Exam Vitals: Temp Pulse Resp BP Pulse Ox 97.6 F 56 16 122/55 95 09/09/18 16:00 09/09/18 16:15 09/09/18 16:15 09/09/18 16:15 09/09/18 16:15 - Assessment and Plan (1) CKD (chronic kidney disease) stage 3, GFR 30-59 ml/min Current Visit: Yes Status: Chronic (2) HTN (hypertension) Current Visit: Yes Status: Chronic (3) T2DM (type 2 diabetes mellitus) Current Visit: Yes Status: Chronic (4) DVT prophylaxis Current Visit: No Status: Acute (5) Acute decompensated heart failure Current Visit: Yes Status: Acute (6) Acute respiratory failure Current Visit: Yes Status: Acute (7) NSTEMI (non-ST elevated myocardial infarction) Current Visit: Yes Status: Acute - Time Spent with Patient Total time spent is greater than 50% in coordination of care (as documented) at patient's floor/unit and/or counseling patient: Internal Medicine: Result - Labs CBC & Chem 7: 09/09/18 09:33 09/09/18 09:33 Labs: Short CBC 09/09/18 Range/Units 09:33 WBC 9.0 (4.3-11.1) K/mcL Hgb 16.0 (12.9-16.9) g/dL Hct 49.8 (37.5-50.1) % Plt Count 190 (140-400) K/mcL Neutrophils # 6.6 (1.6-8.9) K/mcL BMP 09/09/18 09:33 Sodium 136 Potassium 4.6 Chloride 101 Carbon Dioxide 27 BUN 27 H Creatinine 1.46 H Glucose 224 H Calcium 9.7 - ABG Interpretation ABG results: PT/INR, D-dimer PT 11.5 Seconds (9.4-12.1) 09/02/18 17:44 Consult Discharge Plan - Plan [facility]: [facility] [[facility] - 09/23/18 11:15 am - Attending Attestation I examined this patient and my medical decision-making was reviewed with the Resident Physician Dr Nelson. I agree with the documented findings, disposition and treatment plan as described except to the extent set forth below. Mr Toussaint is admitted with NSTEMI and acute HFrEF awake, no cp, pressure, sob or orthopnea. awaiting [facility] [place] today gen- alert, awake,appears stated age cv- reg rate and rhythm, normal s1,s2, no murmurs appreciated, no le edema, no jvd lungs- ctabl, no wheezing, rhonchi or crackles abd- soft, non tender, non distended neuro- AAOx3 NSTEMI- remains on hep gtt, asa + plavix + statin + BB + arb, LHC today Acute HFrEF, resolved- cont meds as above, i/os SUE on CKD Stage III,resolved - appreciate nephro assistance in prep for dye load further diagnoses and plan as noted by resident <Armando Nelson - Last Filed: 09/09/18 18:25> Hospitalist Progress Note - Encounter Date of Encounter: 09/09/18 Time of Encounter: 09:04 - Subjective Interval History: Patient was seen and examined at bedside today. He reports feeling well. He is able to lie flat without difficulty. Currently on supplemental oxygen via nasal cannula. Denies shortness of breath or chest pain. Creatinine has improved tod ay. Plan is for left heart catheterization later today. Nephrology is following for recommendations regarding diuresis and renal protection in anticipation of contrast for [facility]. - Exam Vitals: Temp Pulse Resp BP Pulse Ox 98.3 F 60 18 156/98 97 09/09/18 07:15 09/09/18 07:15 09/09/18 07:15 09/09/18 07:15 09/09/18 07:15 Exam: General: A&O X3, conversant, no acute distress Head: atraumatic, normocephalic Eye: PERRL, EOMI, conjuntiva pink, sclera anicteric Neck: Supple, trachea midline; No lymphadenopathy Respiratory: Clear to auscultation bilaterally; no wheezes or rhonchi Cardiovascular: RRR, +S1, +S2; no murmurs, rubs, gallops Abdomen: Soft, nontender Extremities: warm, radial pulses palpable and symmetrical Psychiatric: Normal affect, normal mood Skin: Dry, intact - Assessment and Plan (1) NSTEMI (non-ST elevated myocardial infarction) Current Visit: Yes Status: Acute Assessment and Plan: ASSESSMENT - Patient initially presented with respiratory distress and chest discomfort after undergoing a stress test - Patient has a known history of coronary artery disease status post CABG 2 - [facility] 05/02: Severe 3 vessel disease, occlusion of 1 out of 2 bypass grafts, occluded SVG to OM, severe disease of mid to distal LAD distal to CALDERON attachment - EKG: ventricular trigeminy, nonspecific intraventricular delay, borderline repolarization abnormality - Troponin levels: 0.03, 0.77, 0.97, 0.94 - Patient has been successfully weaned off nitro drip; denies chest discomfort on physical exam PLAN - Continue medical management with ASA, statin, Plavix, Imdur, metoprolol - Cardiology following; plan is for [facility] later today (2) Acute decompensated heart failure Current Visit: Yes Status: Acute Assessment and Plan: ASSESSMENT - Initially with respiratory distress after lying flat for stress test - TTE 01/29: LVEF 45-50% - TTE 09/03/18: improved LVEF, 50-55% - CXR: central pulmonary vascular congestion - BNP: 293 - Continue Lasix for diuresis - Nephrology consult as patient renal function slightly worsening with diuresis PLAN - Fluid restriction of 1.8 L per day - Strict intake and output, daily weights - Nephrology following for management of diuresis - Supplemental O2 via nasal cannula when necessary; maintain SPO2 87-92% (3) Acute kidney injury superimposed on CKD Current Visit: Yes Status: Acute Assessment and Plan: ASSESSMENT: - Resolved - Baseline creatinine per chart review is approximately 1.4-1.6 - Appears to be back at baseline PLAN: - Avoid nephrotoxic agents - Nephrology following (4) CKD (chronic kidney disease) stage 3, GFR 30-59 ml/min Current Visit: Yes Status: Chronic Assessment and Plan: - Plan as above (5) HTN (hypertension) Current Visit: Yes Status: Chronic Assessment and Plan: - Continue home medications (6) T2DM (type 2 diabetes mellitus) Current Visit: Yes Status: Chronic Assessment and Plan: - ISS (7) DVT prophylaxis Current Visit: No Status: Acute Assessment and Plan: - Heparin - Time Spent with Patient Total time spent is greater than 50% in coordination of care (as documented) at patient's floor/unit and/or counseling patient: Internal Medicine: Result - Labs CBC & Chem 7: 09/09/18 09:33 09/09/18 09:33 Labs: [facility] 09/08/18 08:26 Sodium 137 Potassium 4.4 Chloride 101 Carbon Dioxide 27 BUN 29 H Creatinine 1.46 H Glucose 317 H Calcium 9.4 - ABG Interpretation ABG results: PT/INR, D-dimer PT 11.5 Seconds (9.4-12.1) 09/02/18 17:44 <Syeda Benavides - Last Filed: 09/09/18 16:50> (2) HTN (hypertension) Qualifiers: Hypertension type: essential hypertension Qualified Code(s): I10 - Essential (primary) hypertension (3) T2DM (type 2 diabetes mellitus) Qualifiers: Diabetes mellitus care home insulin use: without care home use Diabetes mellitus complication status: with kidney complications Diabetes mellitus complication detail: with chronic kidney disease Chronic kidney disease stage: stage 3 (moderate) Qualified Code(s): E11.22 - Type 2 diabetes mellitus with diabetic chronic kidney disease; N18.3 - Chronic kidney disease, stage 3 (moderate) (6) Acute respiratory failure Qualifiers: Respiratory failure complication: hypoxia Qualified Code(s): J96.01 - Acute respiratory failure with hypoxia <Armando Nelson - Last Filed: 09/09/18 18:25> (5) HTN (hypertension) Qualifiers: Hypertension type: essential hypertension Qualified Code(s): I10 - Essential (primary) hypertension (6) T2DM (type 2 diabetes mellitus) Qualifiers: Diabetes mellitus termite inspector insulin use: without care home use Diabetes mellitus complication status: with kidney complications Diabetes mellitus complication detail: with chronic kidney disease Chronic kidney disease stage: stage 3 (moderate) Qualified Code(s): E11.22 - Type 2 diabetes mellitus with diabetic chronic kidney disease; N18.3 - Chronic kidney disease, stage 3 (moderate)
[2018-09-09] MEDS: amLODIPine 5 MG TABLET PO SCH (08:54)
[2018-09-09] MEDS: Aspirin Enteric Coated 81 MG Tablet PO SCH (08:54)
[2018-09-09] MEDS: Gabapentin 300 MG CAPSULE PO SCH ×4 (08:54→21:46)
[2018-09-09] MEDS: Isosorbide MONOnitrate (24 HR) 60 MG TAB.ER.24H PO SCH (08:55)
[2018-09-09] MEDS: Cholecalciferol (D-3) 1,000 UNIT TABLET PO SCH (08:55)
[2018-09-09] MEDS: *HR* Acetylcysteine 20% 600 MG/3 ML ORAL SYRINGE PO SCH ×2 (08:56→21:47)
[2018-09-09] MEDS: Insulin LISPRO 300 UNITS/3 ML VIAL SQ SCH ×4 (08:56→22:16)
[2018-09-09] MEDS: Artificial Tears SOLN 15 ML BOTTLE BOTH EYES SCH ×3 (08:57→21:46)
[2018-09-09 10:08] LABS: Basophils # 0.1 K/mcL (0.0-0.2); Basophils % 0.8 %; Eosinophils # 0.3 K/mcL (0.0-0.6); Eosinophils % 3.8 %; Hematocrit 49.8 % (37.5-50.1); Immature Granulocytes % 0.9 % (0-4); Lymphocytes # 1.1 K/mcL (0.6-4.6); Lymphocytes % 12.6 %; Mean Corpuscular HGB Conc 32.1 g/dL (31.6-35.5); Mean Corpuscular Hemoglobin 27.6 pg (28.0-33.3); Mean Platelet Volume 11.8 fL (9.4-12.4); Monocytes # 0.8 K/mcL (0.0-1.3); Monocytes % 8.5 %; Neutrophils # 6.6 K/mcL (1.6-8.9); Platelet Count 190 K/mcL (140-400); Red Blood Count 5.79 M/mcL (4.19-5.50); Red Cell Distribution Width 15.8 % (11.5-14.5); Segmented Neutrophils % 73.4 %
[2018-09-09 10:24] LABS: Calcium 9.7 mg/dL (8.6-10.3); Potassium 4.6 mEq/L (3.5-5.1)
--- NOTE | 2018-09-09 10:30 | Event Note ---
Date of Encounter: 09/09/18 Time of Encounter: 10:29 - Cardiology Event Note Labs and vitals stable. Trialed lying flat without difficulty on 2L NC. Plan for [facility] today. R/B/A discussed and pt agrees to proceed.
[2018-09-09] MEDS: Heparin 25,000 UNIT/250 ML D5W 25,000 UNIT/250 ML IV.SOLN IVC SCH (11:31)
--- NOTE | 2018-09-09 11:40 | Pre-Sedation Evaluation ---
Pre-sedation evaluation - Pre-sedation checklist Date of procedure: 09/09/18 Procedure: C Recent Vitals: Last Vital Signs Temp 98.1 F 09/09/18 11:11 Pulse 55 09/09/18 11:11 Resp 18 09/09/18 11:11 BP 121/61 09/09/18 11:11 Pulse Ox 97 09/09/18 11:11 H&P (including ROS) documented in medical record: Yes Previous reaction to sedatives/anesthetics: No Dietary Status: NPO after Midnight Dentition: No loose teeth or bridges ASA Classification *see protocol: CLASS II-Mild systemic disease Cardiac Registry (Cardio Only) - Functional Capacity Functional Capacity: >=4 METS with symptoms - Clincal Frailty Scale Clinical Frailty Scale: Managing Well
[2018-09-09] MEDS ORDERED: 0.9 % Sodium Chloride 1,000 ML ONE ×2 (13:08→13:10)
[2018-09-09] MEDS ORDERED: *HR* Heparin 10,000 UNIT/10 ML VIAL ONE ×2 (13:09→15:01)
[2018-09-09] MEDS ORDERED: Heparin 1,000 UNITS/500 mL 500 ML ONE (13:09)
[2018-09-09] MEDS ORDERED: Nitroglycerin 1,000 MCG/10 ML VIAL IV ONE (13:09)
[2018-09-09] MEDS ORDERED: ISOVUE-370 200 ML INFUS..BTL ONE ×2 (13:09→13:10)
[2018-09-09] MEDS ORDERED: Tirofiban 12.5 MG/250ML 12.5 MG/250 ML BAG ONE (13:10)
[2018-09-09] MEDS ORDERED: *HR* Midazolam HCl 2 MG/2 ML VIAL ONE (13:25)
[2018-09-09] MEDS ORDERED: *HR* FentaNYL (PF) 100 MCG/2 ML VIAL ONE (13:25)
[2018-09-09] MEDS ORDERED: Tirofiban 12.5 MG/250ML 12.5 MG/250 ML BAG IVC SCH (15:15)
--- NOTE | 2018-09-09 15:15 | Invasive Diagnostic Lab Proc ---
Name: Leroy Toussaint Date of Study: 09/09/2018 Date: 1950 Ht: 72.0in Medical Record#: [id number] Age: 68 Wt: 262.57lb Gender: Male BSA: 2.39 Order #: [id number] BMI: 35.56 Physicians Procedure Physician: Lisa Hensley MD Referring MD: Referring MD: Staff Name Position Time In AydeyuliyaMeche conrad RN Monitor 01:31 PM Jesus Ventura RT (R) Scrub 01:31 PM Josh Brush RN Flow Worker 01:31 PM Lasha Tavera RN Flow Worker 01:31 PM Grace Castellanos RN Nurse 01:31 PM Indications Indication Non-Stemi Procedures Performed Procedure PRQ CARDIAC ANGIOPLAST 1 ART PRQ CARD RAKESH STENT W/ANGIO 1 VSL Pre-Procedure Checklist Informed consent is complete signed and on chart. H&P is on chart. ID band is on and ID verified with patient. Patient NPO for procedure The procedure was described for the patient and questions were answered. Blood Pressure: 156/98 ECG is on chart. Rhythm: NSR Plan of Care Patient will tolerate the procedure without complications. Adequate level of comfort will be maintained. Hemodynamics will remain stable Patient will recover from procedure without complications. Respiratory function will be maintained. Cardiac rhythm will remain stable. Patient temperature will be maintained. Patient and/or family have verbalized understanding of the procedure. Patient Education Chief Complaint/Reason for Test: Cardiac Cath Developmental Category: Geriatric (65+ years) Developmentally Appropriate for Age: Yes Learning Barriers: None Education Needs: Procedure Education Method: Verbal Information Taught: Cardiac Cath Educational Evaluation: Able to repeat information Intravenous Access Time IV Size Location DC'd Fluid/Drip Rate Units RN 22g 1" Patent On Arrival Lt Antecubital Allergies NKA Vital Signs Time BP (mmHg) HR (bpm) O2 Sat. RR (bpm) LOC 01:33 PM / % 5 = Fully awake and oriented or at pre-proc level 01:33 PM / % 4 = Oriented but drowsy 01:48 PM / % 4 = Oriented but drowsy 02:03 PM / % 4 = Oriented but drowsy 02:18 PM / % 4 = Oriented but drowsy 02:34 PM / % 4 = Oriented but drowsy 01:28 PM 151 / 75 60 96 % 21 01:33 PM 136 / 73 59 93 % 20 01:38 PM 136 / 69 58 94 % 13 01:43 PM 142 / 67 56 96 % 15 01:48 PM 146 / 73 59 91 % 24 01:53 PM 140 / 71 59 89 % 23 01:58 PM 142 / 61 56 90 % 40 02:03 PM 132 / 76 57 92 % 19 02:09 PM 141 / 72 56 91 % 23 02:13 PM 144 / 74 56 93 % 19 02:18 PM 149 / 74 55 91 % 22 02:23 PM 146 / 72 65 93 % 18 02:28 PM 147 / 72 56 91 % 23 02:33 PM 153 / 78 57 92 % 36 02:38 PM 144 / 81 58 93 % 31 02:43 PM 135 / 69 57 90 % 19 02:48 PM 137 / 69 59 91 % 21 02:54 PM 155 / 73 58 88 % 23 Procedural Medications Time Medication Dose Units Method Given By 01:34 PM Oxygen 2 L/min nasal cannula Josh Brush RN 01:34 PM Versed 1 mg Intravenous Josh Brush RN 01:34 PM Fentanyl 50 mcg Intravenous Josh Brush RN 01:40 PM Lidocaine 2% 20 ml Subcutaneous Lisa Hensley MD 01:46 PM Aggrastat Bolus: 58 ml Intravenous Josh Brush RN 01:47 PM Aggrastat 12.5mg/250ml 21 ml/hr Intravenous Josh Brush RN 01:53 PM Oxygen 4 L/min nasal cannula Josh Brush RN 01:55 PM Heparin 2000 units Intravenous Josh Brush RN 02:39 PM Fentanyl 25 mcg Intravenous Josh Brush RN 02:47 PM Versed 0.5 mg Intravenous Josh Brush RN 02:47 PM Fentanyl 25 mcg Intravenous Josh Brush RN 02:55 PM Plavix 75 mg Orally Josh Brush RN 03:04 PM Heparin 1500 units Intravenous Josh Brush RN ASA Classification: CLASS II- Mild systemic disease (i.e. well-controlled diabetes, hypertension, asthma, cigarette smoking) Khalida Score Preprocedure Postprocedure Activity 2- Moves 4 extremities sustained head lift Activity 2- Moves 4 extremities sustained head lift Circulation 2- SBP +/= 20 points of pre-anesthetic level Circulation 2- SBP +/= 20 points of pre-anesthetic level Consciousness 2- Awake and alert oriented x 3 Consciousness 2- Awake and alert oriented x 3 O2 Saturation 2- Able to maintain O2 satruation of 92% on room air O2 Saturation 2- Able to maintain O2 satruation of 92% on room air Respiratory 2- Able to deep breathe and cough well Respiratory 2- Able to deep breathe and cough well Total Score 10 Total Score 10 Contrast Agent: Isovue Diagnostic Contrast: 216 ml Total Contrast: 216 ml Fluoro Dose: 258 mGy Activated Clotting Time Time Seconds to Clot 01:54 PM 192 02:44 PM 258 03:04 PM 150 Procedure Log Time Note Enter By 01:20 PM 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 to 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 repair 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 2 at 13:20 [facility] 01:20 PM Meche Rivera RN Position: Monitor Time in: 13:20 [facility] 01:20 PM Jesus Ventura RT (R) Position: Scrub Time in: 13:20 [facility] 01:20 PM Josh Brush RN Position: Flow Worker Time in: 13:20 [facility] 01:20 PM Lasha Tavera RN Position: Flow Worker Time in: 13:20 [facility] 01:20 PM Grace Castellanos RN Position: Nurse Time in: 13:20 [facility] 01:25 PM Hair removed from procedure site in procedure lab using clippers. Bilateral groin prepped with Chloraprep by Josh Brush RN, then patient was draped. Skin intact. [facility] 01:25 PM Patient charges- Angio tray pack, Navilyst 3mm J, Pulse Oximetry and ACIST tubing and transducer [facility] 01:26 PM CathStat 01:26 PM Vitals capture started with the following parameters, Patient=Adult, Interval=5 min, Initial Cnygtvlq=104 mmHg, Deflation Rate=5 mmHg, Cuff placed on Left Arm 01:27 PM Vitals capture started with the following parameters, Patient=Adult, Interval=5 min, Initial Kjjxwdtj=550 mmHg, Deflation Rate=5 mmHg, Cuff placed on Left Arm 01:28 PM HR=60 bpm, ZMEU=450/75 mmhg, SpO2=96.0 %, Resp=21 B/min, EtCO2=31 mmHg 01:29 PM Sign in performed according to hospital policy. Informed consent was obtained. avi 01:30 PM Procedure start 13:30 [facility] 01:31 PM Recorded ECG: HR=58 Condition=Condition 1 01:33 PM HR=59 bpm, TGMB=536/73 mmhg, SpO2=93.0 %, Resp=20 B/min, EtCO2=28 mmHg 01:33 PM Time: 13:33 Patient comfortable and pain free: Yes mm:33 PM Time: 13:33LOC: 5 = Fully awake and oriented or at pre-proc level mm:34 PM Time: 13:34 Oxygen on at 2 L/min per nasal cannula by Josh Brush RN [email or web address] :34 PM Time: 13:34 Versed 1 mg Intravenous Given by Josh Brush RN car[place]mm[place] :34 PM Time: 13:34 Fentanyl 50 mcg Intravenous Given by Josh Brush RN berenice 01:35 PM ASA Class CLASS II- Mild systemic disease (i.e. well-controlled diabetes, hypertension, asthma, cigarette smoking) tsoumm 01:38 PM HR=58 bpm, WCDZ=107/69 mmhg, SpO2=94.0 %, Resp=13 B/min, EtCO2=34 mmHg 01:39 PM Time out was performed according to hospital policy. Conscious sedation and anesthesia was achieved (see medication log with in this report above) tsoummers 01:39 PM Recorded ECG: HR=59 Condition=Condition 1 01:39 PM Pressure channel 1 zeroed. 01:41 PM Time: 13:40 20 ml Lidocaine 2% to right groin Subcutaneous Given by Lisa Hensley MD mm 01:41 PM Micro-Introducer Kit utilized for sheath placement tsoumm 01:42 PM heparin drip turned off in patient room Prior to arrival to orthodontic lab technician oumm 01:43 PM HR=56 bpm, KSZL=788/67 mmhg, SpO2=96.0 %, Resp=15 B/min, EtCO2=32 mmHg 01:44 PM Access obtained by percutaneous puncture. 7Fr 10cm Terumo Amenia sheath placed in right Femoral artery. [id number] tsoumm 01:46 PM 0.035 145cm Navilyst 3mmJ wire [id number] oumm 01:46 PM Inflation device was opened. tsoummers 01:46 PM 6Fr CLS 3.5 Mach 1 guide catheter was used to cannulate the PCI vessel successfully. reused? No oummers 01:47 PM Time: 13:46 Aggrastat Bolus: 58 ml Intravenous Given by Josh Brush RN Valverde pump [place] 01:47 PM Time: 13:47 Aggrastat 12.5mg/250ml 21 ml/hr Intravenous Given by Josh Brush RN Valverde pump ou 01:47 PM Coronary Dominance: right ts 01:48 PM HR=59 bpm, SWLQ=947/73 mmhg, SpO2=91.0 %, Resp=24 B/min, EtCO2=31 mmHg 01:48 PM Time: 13:33LOC: 4 = Oriented but drowsy oumm 01:48 PM Time: 13:33 Patient comfortable and pain free: Yes mm 01:48 PM wire removed 01:49 PM LCA angiography performed in multiple views. 01:49 PM Recorded Pressure: Ao, HR=59, Condition=Condition 1 (Aorta) Ao 144/63/92 01:51 PM .014 [employer] [place] 190cm guide wire placed in CIRC- successful. reused? No mm 01:53 PM HR=59 bpm, XNGG=543/71 mmhg, SpO2=89.0 %, Resp=23 B/min, EtCO2=35 mmHg 01:54 PM Time: 13:53 Oxygen on at 4 L/min per nasal cannula by Josh Brush RN 01:54 PM At 13:54 the ACT was 192 seconds. 01:55 PM Time: 13:55 Heparin 2000 units Intravenous Given by Josh Brush RN [email or web address] 01:55 PM 2.0 mm x 20 mm Emerge Monorail balloon across target lesion- successful. reused? No mm 01:56 PM Lesion found in proximal Circumflex. Pre Stenosis: 70 Pre MARIA E Flow: 2 01:57 PM Balloon catheter removed intact, unable to cross lesion oumm 01:58 PM 1.5 mm x 15 mm Emerge Monorail balloon across target lesion- successful. reused? No mm 01:58 PM HR=56 bpm, LJQR=457/61 mmhg, SpO2=90.0 %, Resp=40 B/min, EtCO2=31 mmHg 02:00 PM Balloon inflated @ 6 bj for 5 seconds tsoumm 02:00 PM Balloon inflated @ 10 bj for 12 [facility] 02:01 PM Balloon inflated @ 10 bj for 7 seconds tsoummers 02:02 PM Balloon inflated @ 10 bj for 7 seconds [facility] 02:02 PM Balloon inflated @ 10 bj for 6 seconds tsoummers 02:02 PM Balloon inflated @ 10 bj for 7 seconds tsoummers 02:03 PM Balloon inflated @ 10 bj for [facility] 02:[facility] PM HR=57 bpm, QORN=415/76 mmhg, SpO2=92.0 %, Resp=19 B/min, EtCO2=33 mmHg 02:03 PM Balloon inflated @ 10 bj for 5 seconds [facility] 02:03 PM Time: 13:48 Patient comfortable and pain free: Yes [facility] 02:03 PM Time: 13:48LOC: 4 = Oriented but drowsy [facility] 02:04 PM Balloon inflated @ 10 bj for 8 seconds [facility] 02:05 PM Balloon inflated @ 10 bj for 5 [facility] 02:[facility] PM Balloon inflated @ 10 bj for 8 seconds [facility] 02:06 PM Balloon inflated @ 10 bj for 10 seconds [facility] 02:06 PM Balloon inflated @ 10 bj for 7 seconds [facility] 02:07 PM Balloon catheter removed intact. [facility] 02:07 PM 2.0 x 20 mm [facility] 02:09 PM HR=56 bpm, AXHA=931/72 mmhg, SpO2=91.0 %, Resp=23 B/min, EtCO2=32 mmHg 02:09 PM Balloon inflated @ 10 bj for 10 seconds [facility] 02:10 PM Balloon inflated @ 12 bj for 10 seconds [facility] 02:10 PM Balloon inflated @ 10 bj for 13 seconds tsoummers 02:11 PM Balloon inflated @ 10 bj for 11 seconds tsoummers 02:11 PM Balloon inflated @ 10 bj for 11 seconds [facility] 02:12 PM Balloon inflated @ 10 bj for 2 seconds [facility] 02:12 PM Balloon catheter [facility] intact. [facility] 02:13 PM HR=56 bpm, RPLV=571/74 mmhg, SpO2=93.0 %, Resp=19 B/min, EtCO2=30 mmHg 02:13 PM Recorded Pressure: Ao, HR=55, Condition=Condition 1 (Aorta) Ao 142/62/91 02:14 PM .014 [employer] [place] 190cm guide wire across target lesion- successful. reused? No in LAD tsoummers 02:16 PM 2.0 mm x 12 mm Emerge Monorail balloon across target lesion- successful. reused? No tsoummers 02:16 PM Balloon inflated @ 10 bj for 6 seconds tsoummers 02:16 PM Lesion found in Proximal LAD. Pre Stenosis: 99 Pre MARIA E Flow: 3: Complete and Brisk Flow/Perfusion tsoummers 02:17 PM Balloon inflated @ 10 bj for 5 seconds tsoummers 02:17 PM Balloon catheter removed intact. tsoummers 02:18 PM HR=55 bpm, YDFT=262/74 mmhg, SpO2=91.0 %, Resp=22 B/min, EtCO2=37 mmHg 02:18 PM 2.5 mm x 15 mm Emerge Monorail balloon across target lesion- successful. reused? No tsoummers 02:18 PM Recorded Pressure: Ao, HR=56, Condition=Condition 1 (Aorta) Ao 148/64/94 02:18 PM Time: 14:03LOC: 4 = Oriented but drowsy tsoummers 02:19 PM Time: 14:03 Patient comfortable and pain free: Yes tsoummers 02:19 PM Balloon inflated @ 10 jb for 7 seconds tsoummers 02:20 PM Balloon inflated @ 10 bj for 7 seconds tsoummers 02:20 PM Balloon catheter removed intact. tsoummers 02:21 PM 2.5 x 15 mm balloon reinserted on circ Wire tsoummers 02:23 PM Balloon inflated @ 10 bj for 12 seconds tsoummers 02:23 PM Balloon inflated @ 10 bj for 6 seconds tsoummers 02:23 PM HR=65 bpm, GRHY=590/72 mmhg, SpO2=93.0 %, Resp=18 B/min, EtCO2=33 mmHg 02:25 PM Balloon catheter removed intact. tsoummers 02:28 PM HR=56 bpm, XIFF=185/72 mmhg, SpO2=91.0 %, Resp=23 B/min 02:33 PM HR=57 bpm, RXIZ=779/78 mmhg, SpO2=92.0 %, Resp=36 B/min 02:34 PM Time: 14:19 Patient comfortable and pain free: Yes tsoummers 02:34 PM Time: 14:18LOC: 4 = Oriented but drowsy tsoummh[place] 02:38 PM HR=58 bpm, BEJQ=331/81 mmhg, SpO2=93.0 %, Resp=31 B/min 02:39 PM Time: 14:39 Fentanyl 25 mcg Intravenous Given by Josh Brush RN [email or web address] 02:41 PM 3.0mm x 12mm Synergy drug-eluting stent across target lesion- successful Lot #[id number] tsoummers 02:43 PM Stent deployed @ 6 bj for 11 seconds tsoummers 02:43 PM HR=57 bpm, QGYF=019/69 mmhg, SpO2=90.0 %, Resp=19 B/min, EtCO2=30 mmHg 02:43 PM Stent balloon reinflated @ 11 bj for 7 seconds tsoummh[place] 02:44 PM Stent balloon reinflated @ 11 bj for 9 seconds tsoummh[place] 02:44 PM At 14:44 the ACT was 258 seconds. tsoummers 02:44 PM Stent balloon reinflated @ 14 bj for 7 seconds tsoummers 02:44 PM Stent delivery system removed intact. tsoummers 02:46 PM 2.5 mm x 12 mm Emerge Monorail balloon across target lesion- successful. reused? No placed in Circ tsoummh[place] 02:47 PM Time: 14:47 Versed 0.5 mg Intravenous Given by Josh Brush RN tsberenice 02:47 PM Time: 14:47 Fentanyl 25 mcg Intravenous Given by Josh Brush RN tsberenice 02:48 PM Balloon inflated @ 10 bj for 12 seconds [email or web address] 02:48 PM HR=59 bpm, GVYQ=595/69 mmhg, SpO2=91.0 %, Resp=21 B/min, EtCO2=35 mmHg 02:48 PM Balloon inflated @ 10 bj for 5 seconds [email or web address] 02:48 PM Balloon catheter removed intact. [email or web address] 02:49 PM Time: 14:34LOC: 4 = Oriented but drowsy tsoummh[place] 02:49 PM Time: 14:34 Patient comfortable and pain free: Yes tsoummhouston 02:49 PM Guide wires removed intact. [email or web address] 02:50 PM Guide catheter removed intact. tsmmers 02:52 PM Procedure completed at 14:52 09/09/2018 tsmmers 02:52 PM Did you address MARIA E flow and Dominance? YesCoronary Dominance: right tsoummers 02:54 PM Sign out completed: Radiation Dose 4402.53 mGy, 258 Gy/cm2 Fluoro Time: 30.1 Isovue 370 - 200ml contrast 216 ml given by Lisa Hensley MD. Complications: None. The patient was discharged out of the orthodontic lab technician in stable condition. Sedation minutes 80. Cardiac Rehab Consult needed: Yes. Confirmed administered medications: Yes tsoummers 02:54 PM HR=58 bpm, LRTB=330/73 mmhg, SpO2=88.0 %, Resp=23 B/min 02:54 PM Isovue 370 - 200ml,2 Bottle(s) used. tsoummers 02:54 PM Sheath left in place to be pulled on floor/holding area tsoummers 02:54 PM Estimated Blood Loss: less than 50cc tsoummers 02:54 PM Post Blood Pressure 155/73 tsoummers 02:54 PM Information taught Cardiac Cath and PCI tsoummers 02:55 PM Education needs Procedure, Plan of Care, Disease Process, and Responsibilities of Patient in Care tsoummers 02:55 PM Learning barriers :None tsoummers 02:55 PM Education Methods Verbal tsoummers 02:55 PM Education evaluation Able to repeat information tsoummers 02:55 PM Site status No bleeding/hematoma - Rt Groin as reported by Jesus Ventura RT (R) at 14:55 tsoummers 02:55 PM Opsite applied tsoummers 02:55 PM Family placed in consult room. tsoummers 02:55 PM Plavix, Effient or Brilinta given Yes tsoummers 02:55 PM Time: 14:55 Plavix 75 mg Orally Given by Josh Brush RN tsoummh[place] 02:58 PM Circumflex, Obtuse Marginal, Left Posterior Descending, and Left Posterolateral Coronary Arteries with 70 % stenosis. If graft is supplying this area, 0 % stenosis tsoummers 02:59 PM Proximal Left Anterior Descending Coronary Artery with 99% stenosis. If graft is supplying this territory, 0 % stenosis. tsoummers 03:03 PM Report given to Mary MARINA Pt taken to 2N Room #3. 15:03 [email or web address] 03:04 PM Time: 15:04 Heparin 1500 units Intravenous Given by Josh Brush RN tscarlosmmhouston 03:04 PM At 15:04 the ACT was 150 seconds. srini 03:04 PM Patient out of room: 15:04 srini Complications Complication None Hemodynamics Pressures Site Systolic/A Wave Diastolic/V Wave Mean AO 144 63 92 AO 142 62 91 AO 148 64 94 Post Procedure Information Blood Pressure: 155/73 mmHg Post procedural instructions were not given Site Checks Time Location Status Staff Sheath In? Note 02:55 PM Rt Groin No bleeding/hematoma Jesus Ventura RT (R) Pulses Time Site Pre-Procedure Post-Procedure Note Bilateral DP & PT 1+ Bilateral radial 1+ Updated by Meche Rivera RN on 09/09/2018 3:07:44 PM electronically signed on 09/09/2018 3:08:14 PM with status of Final
[2018-09-09] MEDS ORDERED: *HR* Atropine Sulfate 1 MG/10 ML SYRINGE ONE (17:13)
--- NOTE | 2018-09-09 23:15 | Nephrology Progress Note ---
Date of Encounter: 09/09/18 Time of Encounter: 17:00 - Assessment and Plan (1) SUE (acute kidney injury) Current Visit: Yes Status: Acute (2) Chest pain, rule out acute myocardial infarction Current Visit: No Status: Acute (3) CKD (chronic kidney disease) stage 3, GFR 30-59 ml/min Current Visit: Yes Status: Chronic Subjective Principal diagnosis: CHF, chest pain Interval history: Pt seen and examined s/p C with intervention, doing well with no new complaints Objective - Vital Signs Vital signs: Vital Signs Temp Pulse Pulse Resp BP Pulse Ox 09/09/18 21:59 98.0 F 74 16 150/75 95 09/09/18 19:20 67 09/09/18 19:00 63 63 18 136/72 94 09/09/18 18:45 60 60 145/77 95 09/09/18 18:30 65 65 18 152/72 94 09/09/18 18:15 97.7 F 60 60 16 143/69 97 09/09/18 17:56 97.6 F 57 57 16 133/64 95 09/09/18 17:55 97.6 F 56 56 16 133/64 94 09/09/18 17:50 97.6 F 56 56 16 130/66 94 09/09/18 17:45 97.6 F 59 59 16 136/70 94 09/09/18 17:40 97.6 F 52 59 16 136/66 94 09/09/18 17:35 97.6 F 52 56 16 136/66 94 09/09/18 17:00 52 52 16 136/66 94 09/09/18 16:30 57 57 17 125/60 93 09/09/18 16:15 56 56 16 122/55 95 09/09/18 16:00 97.6 F 55 54 20 108/54 95 09/09/18 15:45 52 52 19 118/58 95 09/09/18 15:30 52 52 18 120/58 94 09/09/18 15:25 55 55 20 129/59 96 09/09/18 15:19 55 55 22 125/61 93 09/09/18 12:37 60 09/09/18 11:11 98.1 F 55 18 121/61 97 09/09/18 09:11 84 09/09/18 07:15 98.3 F 60 18 156/98 97 09/09/18 04:25 98.1 F 60 18 149/77 96 09/08/18 23:18 98.3 F 70 18 145/78 95 Intake and Output 09/09/18 09/09/18 09/09/18 07:59 15:59 23:59 Intake Total 450 / 930 480 / 930 Output Total 450 / 1250 800 / 1250 Balance 0 / -320 -320 / -320 Intake: IV Fluids 250 / 250 Heparin 25,000 UNIT/250 ML D5W 250 / 250 25,000 unit In 250 ml @ 8 UNIT/ KG/HR 10.088 mls/hr IVC .Q24H CHARLEE Rx#:[id number] Oral 200 / 680 480 / 680 Output: Urine 450 / 1250 800 / 1250 Other: Meal NPO Percent of Meal Consumed 0% Weight 119.1 kg Blood Glucose* 210 173 199 Patient Weight 09/09/18 23:59 Weight 119.1 kg - Lab 09/09/18 09:33 09/09/18 09:33 Consult Discharge Plan - Plan [facility] Provider[facility] - 09/23/18 11:15 am
[2018-09-10 05:00] LABS: Basophils # 0.1 K/mcL (0.0-0.2); Basophils % 0.7 %; Eosinophils # 0.2 K/mcL (0.0-0.6); Eosinophils % 2.6 %; Hematocrit 45.2 % (37.5-50.1); Immature Granulocytes % 1.1 % (0-4); Lymphocytes # 1.1 K/mcL (0.6-4.6); Lymphocytes % 11.7 %; Mean Corpuscular HGB Conc 31.6 g/dL (31.6-35.5); Mean Corpuscular Hemoglobin 27.4 pg (28.0-33.3); Mean Corpuscular Volume 86.8 fL (83.0-100.0); Mean Platelet Volume 11.3 fL (9.4-12.4); Monocytes # 0.8 K/mcL (0.0-1.3); Monocytes % 8.6 %; Neutrophils # 6.9 K/mcL (1.6-8.9); Platelet Count 184 K/mcL (140-400); Red Blood Count 5.21 M/mcL (4.19-5.50); Red Cell Distribution Width 15.5 % (11.5-14.5); Segmented Neutrophils % 75.3 %
[2018-09-10 05:01] LABS: Hemoglobin 14.3 g/dL (12.9-16.9)
[2018-09-10 05:21] LABS: BUN/Creatinine Ratio 18 (6-26); Blood Urea Nitrogen 25 mg/dL (8-23); Calcium 9.2 mg/dL (8.6-10.3); Carbon Dioxide 26 mEq/L (23-29); Chloride 103 mEq/L (98-107); Glucose 196 mg/dL (70-105); Osmolality,Calculated 294 (280-300); Potassium 4.7 mEq/L (3.5-5.1); Sodium 137 mEq/L (136-145); eGFR For Non-African Americans 51 (> 60)
[2018-09-10] MEDS: Cholecalciferol (D-3) 1,000 UNIT TABLET PO SCH (07:48)
[2018-09-10] MEDS: Aspirin Enteric Coated 81 MG Tablet PO SCH (07:49)
[2018-09-10] MEDS: Gabapentin 300 MG CAPSULE PO SCH ×2 (07:49→14:06)
[2018-09-10] MEDS: amLODIPine 5 MG TABLET PO SCH (07:49)
[2018-09-10] MEDS: Isosorbide MONOnitrate (24 HR) 60 MG TAB.ER.24H PO SCH (07:49)
[2018-09-10] MEDS: Artificial Tears SOLN 15 ML BOTTLE BOTH EYES SCH ×2 (07:50→14:04)
[2018-09-10] MEDS: Insulin LISPRO 300 UNITS/3 ML VIAL SQ SCH ×2 (07:51→12:29)
--- NOTE | 2018-09-10 09:18 | Electrocardiograph Report ---
[address] [address] Test Date: 2018-09-09 Pat Name: Leroy Toussaint Department: 110 Room: 2N03 Gender: M [employer] Worker: [place] : 1950 Requested By: Lisa Hensley Order Number: [id number] Reading MD: Jimmy Fay Measurements Intervals [place] Rate: 53 P: 25 OK: 203 QRS: 38 QRSD: 121 T: 196 QT: 468 QTc: 452 Interpretive Statements SINUS BRADYCARDIA MODERATE INTRAVENTRICULAR CONDUCTION DELAY ST DEVIATION AND MODERATE T-WAVE ABNORMALITY, CONSIDER INFERIOR AND LATERAL ISCHEMIA Electronically Signed On 09-10-2018 9:16:59 EDT by Jimmy Fay
--- NOTE | 2018-09-10 09:42 | Cardiology Progress Note ---
Date of Encounter: 09/10/18 Time of Encounter: 09:40 Assessment and Plan (1) NSTEMI (non-ST elevated myocardial infarction) Current Visit: Yes Status: Acute Per Cardiology: NSTEMI with peak troponin 0.97. TTE 01/2018 with LVEF 45-50%, global hypokinesis, mildly dilated LV, moderate LVDD, RV dilated and hypokinetic. Repeat TTE improved LVEF, 50-55%. S/P LHC 09/09/18 Patient had successful PTCA/Drug-Eluting Stent placement in the proximal/ostial LAD. PTCA to the proximal CIRC Grafts were not visualized. CP free. DAPT (ASA and Plavix) uninterrupted x 1 year. Pt verbalizes understanding. Continue statin, BB, imdur. Right femoral access site healing well. No bleeding, hematoma or ecchymosis noted. Restrictions discussed. Creatinine improved--1.38 today. Cardiology signing off. Reconsult PRN. Will coordinate outpt follow-up in 1 week. (2) CAD (coronary artery disease) Current Visit: Yes Status: Acute As above, ASA, Plavix, Statin, BB, nitrates. Qualifiers: Coronary Disease-Associated Artery/Lesion type: [place] artery [place] vs. transplanted heart: [place] heart Associated angina: angina presence unspecified Qualified Code(s): I25.10 - Atherosclerotic heart disease of [place] coronary artery without angina pectoris Discussion w patient/family: The assessment and plan as outlined above was discussed with the patient and/or family members who expressed understanding and agreement. All questions were answered. Thank you for involving us in the care of your patient. Please call with any questions. Subjective Principal diagnosis: CHF, chest pain Interval history: Pt denies chest pain overnight. Denies dyspnea. On 2L O2 NC. Objective Vital Signs, Last 4 Hours Temp Pulse Resp BP Pulse Ox 09/10/18 07:15 98.2 F 63 16 154/77 93 Vital Signs Temp Pulse Pulse Resp BP Pulse Ox 09/10/18 07:15 98.2 F 63 16 154/77 93 09/10/18 04:20 97.9 F 65 16 142/81 94 09/10/18 00:40 97.8 F 60 16 133/65 95 09/09/18 21:59 98.0 F 74 16 150/75 95 09/09/18 19:20 67 09/09/18 19:00 63 63 18 136/72 94 09/09/18 18:45 60 60 145/77 95 09/09/18 18:30 65 65 18 152/72 94 09/09/18 18:15 97.7 F 60 60 16 143/69 97 09/09/18 17:56 97.6 F 57 57 16 133/64 95 09/09/18 17:55 97.6 F 56 56 16 133/64 94 09/09/18 17:50 97.6 F 56 56 16 130/66 94 09/09/18 17:45 97.6 F 59 59 16 136/70 94 09/09/18 17:40 97.6 F 52 59 16 136/66 94 09/09/18 17:35 97.6 F 52 56 16 136/66 94 09/09/18 17:00 52 52 16 136/66 94 09/09/18 16:30 57 57 17 125/60 93 09/09/18 16:15 56 56 16 122/55 95 09/09/18 16:00 97.6 F 55 54 20 108/54 95 09/09/18 15:45 52 52 19 118/58 95 09/09/18 15:30 52 52 18 120/58 94 09/09/18 15:25 55 55 20 129/59 96 09/09/18 15:19 55 55 22 125/61 93 09/09/18 12:37 60 09/09/18 11:11 98.1 F 55 18 121/61 97 Intake and Output 09/09/18 09/10/18 09/10/18 23:59 07:59 15:59 Intake Total 609 / 1059 150 / 390 240 / 390 Output Total 800 / 1250 950 / 950 Balance -191 / -191 -800 / -560 240 / -560 Intake: IV Fluids 129 / 379 Aggrastat 12.5 MG/250 ML 12.5 129 / 129 mg In 250 ml @ 0.15 MCG/KG/MIN 21.438 mls/hr IVC .[id number] [facility] Rx#:[id number] Oral 480 / 680 150 / 390 240 / 390 Output: Urine 800 / 1250 950 / 950 Other: Meal Breakfast Percent of Meal Consumed 100% Weight 119.3 kg Blood Glucose* 199 174 Patient Weight 09/10/18 23:59 Weight 119.3 kg General: Conversant, No Apparent Distress HEENT: Atraumatic, Normocephaly, Mucus Membranes Moist Cardiac: Reg Rate and Rhythm, Normal S1 and S2, No Murmur Lungs: Normal Breath Sounds, No Wheeze, Rales, Rhonchi Neuro: Alert and responsive, No focal deficits noted Abdomen: Soft, Non-Tender Skin: No rashes noted on visualized skin Musculoskeletal: No Chest Wall Tenderness Extremities: No Clubbing, No Cyanosis, No Edema, Normal Pulses Results 09/10/18 04:02 09/10/18 04:02 Lab Results 09/09/18 09/09/18 09/10/18 09:33 09:33 04:02 WBC 9.0 9.2 Hgb 16.0 14.3 D Hct 49.8 45.2 Plt Count 190 184 Sodium 136 Potassium 4.6 Chloride 101 Carbon Dioxide 27 BUN 27 H Creatinine 1.46 H Glucose 224 H Calcium 9.7 09/10/18 04:02 WBC Hgb Hct Plt Count Sodium 137 Potassium 4.7 Chloride 103 Carbon Dioxide 26 BUN 25 H Creatinine 1.38 H Glucose 196 H Calcium 9.2 Short CBC 09/10/18 09/09/18 Range/Units 04:02 09:33 WBC 9.2 9.0 (4.3-11.1) K/mcL Hgb 14.3 D 16.0 (12.9-16.9) g/dL Hct 45.2 49.8 (37.5-50.1) % Plt Count 184 190 (140-400) K/mcL Neutrophils # 6.9 6.6 (1.6-8.9) K/mcL BMP 09/10/18 09/09/18 Range/Units 04:02 09:33 Sodium 137 136 (136-145) mEq/L Potassium 4.7 4.6 (3.5-5.1) mEq/L Chloride 103 101 (98-107) mEq/L Carbon Dioxide 26 27 (23-29) mEq/L BUN 25 H 27 H (8-23) mg/dL Creatinine 1.38 H 1.46 H (0.70-1.30) mg/dL Glucose 196 H 224 H (70-105) mg/dL Calcium 9.2 9.7 (8.6-10.3) mg/dL Active Medications Acetaminophen (Tylenol) 650 mg PO Q6HR PRN PRN Reason: Fever Stop: 03/05/19 08:55 Last Admin: 09/07/18 22:33 Dose: 650 mg Documented by: Acetylcysteine (Acetylcysteine 20%) 600 mg PO BID [facility] Stop: 03/09/19 09:16 Last Admin: 09/09/18 21:47 Dose: 600 mg Documented by: Amlodipine Besylate (Norvasc) 10 mg PO [facility] Stop: 03/05/19 09:01 Last Admin: 09/10/18 07:49 Dose: 10 mg Documented by: Artificial Tears (Akwa Tears) 1 drop BOTH EYES TID [facility] Stop: 03/09/19 15:01 Last Admin: 09/10/18 07:50 Dose: 1 drop Documented by: Aspirin (Aspirin Ec) 81 mg PO [facility] Stop: 03/05/19 09:01 Last Admin: 09/10/18 07:49 Dose: 81 mg Documented by: Atorvastatin Calcium (Lipitor) 20 mg PO DAILY@2100 [facility] Stop: 03/04/19 21:01 Last Admin: 09/09/18 21:46 Dose: 20 mg Documented by: Clopidogrel Bisulfate (Plavix) 75 mg PO [facility] Stop: 03/05/19 09:01 Last Admin: 09/10/18 07:49 Dose: 75 mg Documented by: Gabapentin (Neurontin) 300 mg PO TID [facility] Stop: 03/10/19 09:01 Last Admin: 09/10/18 07:49 Dose: 300 mg Documented by: Hydralazine HCl (Hydralazine) 10 mg IVP Q6HR PRN PRN Reason: Hypertension Stop: 03/08/19 07:53 Last Admin: 09/07/18 22:33 Dose: 10 mg Documented by: Insulin Human Lispro (Humalog) 0 units SQ HS [facility]; Protocol Stop: 03/06/19 21:01 Last Admin: 09/09/18 22:16 Dose: Not Given Documented by: [facility]ulin [facility]) [facility] Protocol Stop: 03/06/19 17:01 Last Admin: 09/10/18 07:51 Dose: 2 units Documented by: Isosorbide Mononitrate (Imdur) 30 mg PO [facility] Stop: 03/05/19 09:01 Last Admin: 09/10/18 07:49 Dose: 30 mg Documented by: Ketoconazole (Nizoral Cream) 1 appl TP BID PRN PRN Reason: RASH IN ARMPIT Stop: 03/09/19 11:00 Lactic Acid (Amlactin) 1 appl TP BID PRN PRN Reason: RASH IN [place]MP[place] Losartan Potassium (Cozaar) 75 mg PO QPM [facility]; Protocol Stop: 03/04/19 18:01 Last Admin: 09/09/18 18:27 Dose: 75 mg Documented by: Metoprolol Tartrate (Lopressor) 50 mg PO BID [facility] Stop: 03/04/19 21:01 Last Admin: 09/10/18 07:49 Dose: 50 mg Documented by: Metoprolol Tartrate (Lopressor) 5 mg IVP Q6HR PRN PRN Reason: SEE COMMENTS Stop: 03/04/19 16:07 Naloxone HCl (Narcan) 0.4 mg IVP Q2MPRN PRN PRN Reason: SEE COMMENTS Stop: 03/04/19 16:04 Nitroglycerin (Nitroglycerin) 0.4 mg SL Q5MIN PRN PRN Reason: Chest Pain Stop: 03/09/19 11:00 Omeprazole (Prilosec) 20 mg PO DAILY@0630 [facility] Stop: 03/05/19 06:31 Last Admin: 09/10/18 06:15 Dose: 20 mg Documented by: Polyethylene Glycol (Miralax) 17 gm PO DAILY [facility] Stop: 03/10/19 09:01 Last Admin: 09/10/18 07:48 Dose: 17 gm Documented by: Simethicone (Gas-X) 160 mg PO ACHS PRN PRN Reason: GAS/BLOATING Stop: 03/09/19 11:00 Tamsulosin HCl (Flomax) 0.4 mg PO DAILY [facility]; Protocol Stop: 03/05/19 09:01 Last Admin: 09/10/18 07:48 Dose: 0.4 mg Documented by: Vitamin D (Vitamin D) 1,000 unit PO DAILY [facility] Stop: 03/05/19 09:01 Last Admin: 09/10/18 07:48 Dose: 1,000 unit Documented by: - Imaging and Cardiology Echo: report reviewed Cardiac cath: report reviewed - EKG Interpretation EKG results cardiology: other (12 hr tele AVG HR 58, SR) Consult Discharge Plan - Plan Referrals: PEPE,PCP [Primary Care Provider] - 09/23/18 11:15 am
[2018-09-10 11:17] VITALS: BP 130/67
--- NOTE | 2018-09-10 13:53 | Discharge Summary ---
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 mellitus 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 harvesting supervisor insulin use: without watermelon harvesting supervisor use Diabetes mellitus complication status: with kidney complications Diabetes mellitus complication detail: with chronic kidney disease Chronic kidney disease stage: stage 3 (moderate) Qualified Code(s): E11.22 - Type 2 diabetes mellitus with diabetic chronic kidney disease; N18.3 - Chronic kidney disease, stage 3 ( moderate) (4) DVT prophylaxis Status: Acute (5) Acute decompensated heart failure Status: Acute (6) Acute respiratory failure Status: Acute Qualifiers: Respiratory failure complication: hypoxia Qualified Code(s): J96.01 - Acute respiratory failure with hypoxia (7) NSTEMI (non-ST elevated myocardial infarction) Status: Acute Hospital course: Mr. Toussaint is a 68 year old male - Time Spent with Patient Total time spent providing and/or coordinating discharge services: Time spent: Greater than 30 minutes (50 min) - Discharge Medications Prescriptions: Continued Isosorbide MONOnitrate (24 HR) [Imdur] 30 mg PO QAM Clopidogrel [Plavix] 75 mg PO QAM Metoprolol Tartrate [Lopressor] 50 mg PO BID Losartan [Cozaar] 75 mg PO QPM glipiZIDE [Glipizide] 10 mg PO BID Aspirin [Adult Low Dose Aspirin EC] 81 mg PO QAM Amlodipine Besylate 10 mg PO QAM Tamsulosin [Flomax] 0.4 mg PO DAILY Rosuvastatin Calcium [Crestor] 10 mg PO DAILY Cholecalciferol (Vitamin D3) [Vitamin D3] 1,000 unit PO DAILY Pantoprazole Sodium [Protonix] 40 mg PO DAILY Gabapentin [Neurontin] 600 mg PO TID Albuterol Sulfate [Proair Hfa] 2 puff PO Q6H PRN PRN Reason: Shortness Of Breath Ammonium Lactate [Lois-Hydrolac] 1 appl TP BID PRN PRN Reason: RASH IN ARMPIT Carboxymethylcellulos/Glycerin [Refresh Optive Gel Eye Drops] 1 drop BOTH EYES TID Ketoconazole 2% CRM [Nizoral Cream] 1 appl TP BID PRN PRN Reason: RASH IN [place]MP[place] Nitroglycerin [Nitrostat] 0.4 mg SL Q5MIN PRN MDD [id number] CALL 911 PRN Reason: Chest Pain Polyethylene Glycol 3350 [MiraLAX] 17 gm PO DAILY Simethicone [Gas-X] 160 mg PO AD PRN PRN Reason: GAS/BLOATING Home Medications: Amlodipine Besylate 10 mg PO QAM 07/03/15 [History] Aspirin [Adult Low Dose Aspirin EC] 81 mg PO QAM 07/03/15 [History] Clopidogrel [Plavix] 75 mg PO QAM 07/03/15 [History] Isosorbide MONOnitrate (24 HR) [Imdur] 30 mg PO QAM 07/03/15 [History] Losartan [Cozaar] 75 mg PO QPM 07/03/15 [History] Metoprolol Tartrate [Lopressor] 50 mg PO BID 07/03/15 [History] glipiZIDE [Glipizide] 10 mg PO BID 07/03/15 [History] Cholecalciferol (Vitamin D3) [Vitamin D3] 1,000 unit PO DAILY 04/27/18 [History] Pantoprazole Sodium [Protonix] 40 mg PO DAILY 04/27/18 [History] Rosuvastatin Calcium [Crestor] 10 mg PO DAILY 04/27/18 [History] Tamsulosin [Flomax] 0.4 mg PO DAILY 04/27/18 [History] Albuterol Sulfate [Proair Hfa] 2 puff PO Q6H PRN 09/03/18 [History] Ammonium Lactate [Lois-Hydrolac] 1 appl TP BID PRN 09/03/18 [History] Carboxymethylcellulos/Glycerin [Refresh Optive Gel Eye Drops] 1 drop BOTH EYES TID 09/03/18 [History] Gabapentin [Neurontin] 600 mg PO TID 09/03/18 [History] Ketoconazole 2% CRM [Nizoral Cream] 1 appl TP BID PRN 09/03/18 [History] Nitroglycerin [Nitrostat] 0.4 mg SL Q5MIN PRN MDD [id number] CALL 911 09/03/18 [Hi story] Polyethylene Glycol 3350 [MiraLAX] 17 gm PO DAILY 09/03/18 [History] Simethicone [Gas-X] 160 mg PO AD PRN 09/03/18 [History] Allergies/Adverse Reactions: Allergy/AdvReac Type Severity Reaction Status Date / Time No Known Allergies Allergy Verified 09/03/18 16:14 Date of admission: 09/02/18 20:26 Primary care physician: PCP [facility] Consults: 09/02/18 17:38 Consult to Cardiology [CONS] Routine Comment: Consulting Provider: Cardiology Eda Reason for Consult: unstable angina Call Completed: No 09/04/18 14:49 Consult to Cardiac Rehabilitation-Phase1 [CONS] Routine Comment: Reason for Consult: elevated trop--LHC possible on Friday Call Completed: No 09/04/18 15:25 Consult to Nephrology [CONS] Routine Consulting Provider: Kidney Eda/JENNIFER/SHERICE/HARI Reason for Consult: SUE, diuresis recommendations for decompensated CHF Call Completed: Yes 09/09/18 15:03 Consult to Cardiac Rehabilitation-Phase1 [CONS] Routine Comment: Reason for Consult: AMI Call Completed: Yes Consult to Nurse Navigator [CONS] Routine Comment: - Constitutional Vitals: Temp Pulse Resp BP Pulse Ox 97.6 F 66 16 130/67 92 09/10/18 11:14 09/10/18 11:14 09/10/18 11:14 09/10/18 11:14 09/10/18 11:14 - Patient Status Disposition: Home, Self-Care Condition: Good Overall status at discharge: patient is progressing back to baseline - Discharge Instructions Instructions: Myocardial Infarction (DC), Myocardial Infarction (GEN), Coronary Intravascular Stent Placement (DC) Follow Up With: PE[facility],PCP [Primary Care Provider] - 09/23/18 11:15 am Lisa Hensley [Partnered Physician] - - Diet and Activity Activity: as per the cardiac rehab Diet: low fat, low cholesterol, low salt diet, other (1.8 L daily fluid restriction) - Attending Attestation I examined this patient and my medical decision-making was reviewed with the Resident Physician Dr Nelson. I agree with the documented findings, disposition and treatment plan as described except to the extent set forth below. Mr Toussaint is admitted with NSTEMI and acute HFrEF s/p [facility] PTCA/Drug-Eluting Stent placement in the proximal/ostial LAD and PTCA to the proximal CIRC He is medically stable for dc to home with outpt cards follow up awake, no cp, pressure, palpitations. remains on o2 nc. no sob, wheezing or orthopnea. no le edema. no groinpain, leg pain or numbness/tingling in the leg. discussed dc plan and qualified for home o2. gen- alert, awake,appears stated age cv- reg rate and rhythm, normal s1,s2, no murmurs appreciated, no le edema, no jvd lungs- ctabl, no wheezing, rhonchi or crackles, normal resp effort on o2 nc neuro- AAOx3 NSTEMI / CAD- s/p PTCA/RAKESH as above, asa + plavix + statin + BB + arb + imdur,close outpt cards follow up Acute HFrEF, resolved- cont meds as above, qualified for home o2 Acute hypoxic resp failure 2/2 above- home o2 SUE on CKD Stage III,resolved, remains stable post [facility] - appreciate nephro assistance, fu with Dr Barrios outpt further diagnoses and plan as noted by resident time spent on dc 50 min <Armando Nelson - Last Filed: 09/10/18 16:01> - NOTES TO OUTPATIENT PROVIDER Notes to Outpatient Provider: Follow-up with primary care and cardiology in the outpatient setting within 1 week. Continue dual antiplatelet therapy with as pirin and Plavix uninterrupted for 1 year. Continue oxygen via nasal cannula. Follow-up with professional builder Dr. Barrios in the outpatient setting within 4 weeks. Orders not resulted at time of discharge: Pending orders 09/08/18 09:06 CL Cardiac Catheterization [CL] Routine 09/09/18 15:03 ECG 12 lead ECG [ECG] Routine 09/10/18 07:00 ECG 12 lead ECG [ECG] Routine Date of Encounter: 09/10/18 Time of Encounter: 09:35 - Discharge Diagnosis (1) NSTEMI (non-ST elevated myocardial infarction) Priority: Primary Status: Acute (2) Acute decompensated heart failure Priority: Secondary Status: Acute (3) Acute kidney injury superimposed on CKD Priority: Secondary Status: Acute (4) CKD (chronic kidney disease) stage 3, GFR 30-59 ml/min Priority: Secondary Status: Chronic (5) HTN (hypertension) Priority: Secondary Status: Chronic Qualifiers: Hypertension type: essential hypertension Qualified Code(s): I10 - Essential (primary) hypertension (6) T2DM (type 2 diabetes mellitus) Priority: Secondary Status: Chronic Qualifiers: Diabetes mellitus halfway insulin use: without watermelon harvesting supervisor use Diabetes mellitus complication status: with kidney complications Diabetes mellitus complication detail: with chronic kidney disease Chronic kidney disease stage: stage 3 (moderate) Qualified Code(s): E11.22 - Type 2 diabetes mellitus with diabetic chronic kidney disease; N18.3 - Chronic kidney disease, stage 3 (moderate) (7) DVT prophylaxis Priority: Secondary Status: Acute Hospital course: Mr. Toussaint is a 68-year-old male with a PMH of CAD s/p CABG on DAPT, CHF, DM, HTN who presented to [facility] ED on 09/02/18 with a chief complaint of dyspnea and chest pain during a cardiac stress test that was performed same day. His O2 saturations were down in the 70s on room air. He described his chest pain as substernal, sharp, aching without radiation. He denied exacerbating or relieving factors. His pain was relieved by nitroglycerin in the emergency department. He reported that he had orthopnea at baseline, and did not monitor his sodium at home. Upon arrival, his vital signs were as follows: Temperature 97.6, heart rate 90, respiratory rate 29, blood pressure 154/103, and O2 saturation 81. His labs demonstrated an elevated white count at 13.9, a creatinine of 1.468 be nothing by mouth at 293, and an elevated troponin at 0.77. CXR demonstrated pulmonary vascular congestion. He was placed on BiPAP, a nitro drip, and was given IV Lasix. After this, his chest pain and shortness of breath improved. He was also placed on a heparin drip. Cardiology was consulted for further management. While in the hospital, patient developed acute kidney injury on chronic kidney disease. His Lasix was therefore decreased. Nephrology was consulted for further management of diuresis. Also ordered Mucomyst 600 mg twice a day in anticipation of left heart catheter. He was also treated with gentle IV fluid hydration. During his stay in the hospital, his shortness of breath improved, although he still required oxygen via nasal cannula. His lower extremity edema improved. On 09/09/18, patient underwent left heart catheterization. A PTCA/drug-eluting stent was placed in the proximal/ostial LAD. They recommended dual antiplatelet therapy with aspirin and Plavix uninterrupted for 1 year. They also recommended the patient continue his statin, beta ro, and Imdur. Patient was seen and examined at bedside today. He states that he is feeling well. He qualified for oxygen after a 6 minute walk test; oxygen prescription for 2 L of supplemental O2 has been signed. He states that he is not feeling short of breath today. Also denies chest pain, diaphoresis, headache, or swelling of his lower extremities. He has no complaints at this time. - Time Spent with Patient Total time spent providing and/or coordinating discharge services: Date of admission: 09/02/18 20:26 Primary care physician: [facility] Consults: 09/02/18 17:38 Consult to Cardiology [CONS] Routine Comment: Consulting Provider: Cardiology Eda Reason for Consult: unstable angina Call Completed: No 09/04/18 14:49 Consult to Cardiac Rehabilitation-Phase1 [CONS] Routine Comment: Reason for Consult: elevated trop--LHC possible on Friday Call Completed: No 09/04/18 15:25 Consult to Nephrology [CONS] Routine Consulting Provider: Kidney Eda/JENNIFER/SHERICE/HARI Reason for Consult: SUE, diuresis recommendations for decompensated CHF Call Completed: Yes 09/09/18 15:03 Consult to Cardiac Rehabilitation-Phase1 [CONS] Routine Comment: Reason for Consult: AMI Call Completed: Yes Consult to Nurse Navigator [CONS] Routine Comment: Discharging clinician: Armando Nelson Anticipated date of discharge: 09/10/18 - Constitutional Vitals: Temp Pulse Resp BP Pulse Ox 97.6 F 66 16 130/67 92 09/10/18 11:14 09/10/18 11:14 09/10/18 11:14 09/10/18 11:14 09/10/18 11:14 General appearance: Present: A&O X 3 Exam: General: A&O X3, conversant, no acute distress Head: atraumatic, normocephalic Eye: PERRL, EOMI, conjuntiva pink, sclera anicteric Neck: Supple, trachea midline; No lymphadenopathy Respiratory: Clear to auscultation bilaterally; no wheezes or rhonchi Cardiovascular: RRR, +S1, +S2; no murmurs, rubs, gallops Abdomen: Soft, nontender Extremities: warm, radial pulses palpable and symmetrical Psychiatric: Normal affect, normal mood Skin: Dry, intact
[2018-09-10] MEDS: *HR* Acetylcysteine 20% 600 MG/3 ML ORAL SYRINGE PO SCH (14:04)
--- NOTE | 2018-09-10 23:01 | Nephrology Progress Note ---
Date of Encounter: 09/10/18 Time of Encounter: 13:00 - Assessment and Plan (1) SUE (acute kidney injury) Status: Acute (2) Chest pain, rule out acute myocardial infarction Status: Acute (3) CKD (chronic kidney disease) stage 3, GFR 30-59 ml/min Status: Chronic Subjective Principal diagnosis: CHF, chest pain Interval history: Pt seen and examined s/p C with intervention, doing well with no new complaints Objective - Vital Signs Vital signs: Vital Signs Temp Pulse Pulse Resp BP Pulse Ox 09/10/18 11:14 97.6 F 66 16 130/67 92 09/10/18 10:36 90 09/10/18 07:50 98.2 F 63 63 16 154/77 93 09/10/18 07:15 98.2 F 63 16 154/77 93 09/10/18 04:20 97.9 F 65 16 142/81 94 09/10/18 00:40 97.8 F 60 16 133/65 95 Intake and Output 09/10/18 09/10/18 09/10/18 07:59 15:59 23:59 Intake Total 250 / 490 240 / 490 Output Total 950 / 950 Balance -700 / -460 240 / -460 Intake: Oral 250 / 490 240 / 490 Output: Urine 950 / 950 Other: Meal Breakfast Percent of Meal Consumed 100% Weight 119.3 kg Blood Glucose* 174 262 Patient Weight 09/10/18 23:59 Weight 119.3 kg - Lab 09/10/18 04:02 09/10/18 04:02 Consult Discharge Plan - Plan Instructions: Myocardial Infarction (DC), Myocardial Infarction (GEN), Coronary Intravascular Stent Placement (DC) Referrals: [facility] [Primary Care Provider] - 09/23/18 11:15 am Lisa Hensley [Partnered Physician] -
--- NOTE | 2018-09-11 11:42 | Electrocardiograph Report ---
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
== END 2018-09-10 18:19 | disposition home or self-care (01) | DRG 246 ==
LOC: EMEROOARM 13:06 → SUATTDRO 20:26 → 2NNU 20:26
PROVIDERS: ADMIT Internal Medicine Nephrology; ATTEND Internal Medicine

== ENCOUNTER 2018-10-11 22:16 | Inpatient (IN) ==
[2018-10-11 22:56] LABS: Basophils # 0.1 K/mcL (0.0-0.2); Basophils % 0.5 %; Eosinophils # 0.2 K/mcL (0.0-0.6); Eosinophils % 2.2 %; Hematocrit 44.9 % (37.5-50.1); Hemoglobin 14.1 g/dL (12.9-16.9); Immature Granulocytes % 0.7 % (0-4); Lymphocytes # 0.8 K/mcL (0.6-4.6); Mean Corpuscular HGB Conc 31.4 g/dL (31.6-35.5); Mean Corpuscular Hemoglobin 27.9 pg (28.0-33.3); Mean Corpuscular Volume 88.9 fL (83.0-100.0); Mean Platelet Volume 11.9 fL (9.4-12.4); Monocytes # 0.8 K/mcL (0.0-1.3); Monocytes % 7.5 %; Neutrophils # 9.2 K/mcL (1.6-8.9); Platelet Count 160 K/mcL (140-400); Red Blood Count 5.05 M/mcL (4.19-5.50); Red Cell Distribution Width 16.3 % (11.5-14.5); Segmented Neutrophils % 82.1 %; White Blood Count 11.1 K/mcL (4.3-11.1)
[2018-10-11 23:18] LABS: BUN/Creatinine Ratio 23 (6-26); Blood Urea Nitrogen 37 mg/dL (8-23); Calcium 9.1 mg/dL (8.6-10.3); Carbon Dioxide 22 mEq/L (23-29); Chloride 109 mEq/L (98-107); Glucose 306 mg/dL (70-105); Magnesium 1.7 mg/dL (1.6-2.6); Osmolality,Calculated 312 (280-300); Potassium 4.9 mEq/L (3.5-5.1); Sodium 141 mEq/L (136-145); Troponin I < 0.03 ng/mL (< 0.04); eGFR For African Americans 52 (> 60); eGFR For Non-African Americans 43 (> 60)
[2018-10-11] MEDS ORDERED: Furosemide 20 MG/2 ML VIAL IVP ONE (23:56)
[2018-10-12] MEDS ORDERED: Furosemide 40 MG/4 ML VIAL IVP ONE (00:06)
[2018-10-12] MEDS ORDERED: Nitroglycerin 1 INCH/GM PACKET TP ONE (00:20)
[2018-10-12] MEDS ORDERED: Naloxone 0.4 MG/ML INJ IVP PRN (01:25)
[2018-10-12 02:39] LABS: Basophils # 0.1 K/mcL (0.0-0.2); Basophils % 0.6 %; Eosinophils # 0.1 K/mcL (0.0-0.6); Eosinophils % 1.3 %; Hematocrit 46.5 % (37.5-50.1); Hemoglobin 14.3 g/dL (12.9-16.9); Immature Granulocytes % 1.1 % (0-4); Lymphocytes # 0.7 K/mcL (0.6-4.6); Lymphocytes % 6.5 %; Mean Corpuscular HGB Conc 30.8 g/dL (31.6-35.5); Mean Platelet Volume 11.7 fL (9.4-12.4); Monocytes # 0.8 K/mcL (0.0-1.3); Monocytes % 7.3 %; Neutrophils # 8.8 K/mcL (1.6-8.9); Platelet Count 166 K/mcL (140-400); Red Blood Count 5.11 M/mcL (4.19-5.50); Red Cell Distribution Width 16.2 % (11.5-14.5); Segmented Neutrophils % 83.2 %; White Blood Count 10.5 K/mcL (4.3-11.1)
[2018-10-12 02:46] LABS: INR 1.2; Prothrombin Time 13.5 Seconds (9.4-12.1)
[2018-10-12 02:59] LABS: Calcium 9.2 mg/dL (8.6-10.3); Magnesium 1.8 mg/dL (1.6-2.6); Phosphorous 4.4 mg/dL (2.7-4.5); Potassium 5.4 mEq/L (3.5-5.1)
[2018-10-12] MEDS ORDERED: D5% in Water 1,000 ML IVC PRN (03:12)
[2018-10-12] MEDS ORDERED: *HR* Dextrose 50 % in Water (Syg) 50 ML SYRINGE IVP PRN (03:12)
[2018-10-12] MEDS ORDERED: Dextrose Gel 15 GM/37.5 ML TUBE PO PRN ×2 (03:12)
[2018-10-12] MEDS ORDERED: Nitroglycerin 0.4 MG TAB.SUBL SL PRN (03:14)
[2018-10-12] MEDS: Insulin LISPRO 300 UNITS/3 ML VIAL SQ SCH ×4 (05:45→20:55)
[2018-10-12] MEDS: *HR* Heparin 5,000 UNIT/ML VIAL SQ SCH ×3 (05:46→20:55)
[2018-10-12 05:51] LABS: ABG Base Excess 0 mEq/L (-2 to 3); ABG HCO3 25 mEq/L (21-27); ABG Oxygen Saturation 96 % (95-98); ABG PCO2 37 mmHg (35-45); ABG PH 7.43 pH Units (7.32-7.45); ABG PO2 78 mmHg (85-104); ABG TCO2 26 mEq/L (20-26); Blood Gas Modality S/T
[2018-10-12] MEDS: Aspirin Enteric Coated 81 MG Tablet PO SCH (08:00)
[2018-10-12] MEDS: Cholecalciferol (D-3) 1,000 UNIT (25MCG) TABLET PO SCH (08:00)
[2018-10-12] MEDS: amLODIPine 5 MG TABLET PO SCH (08:01)
[2018-10-12 08:35] LABS: Calcium 9.2 mg/dL (8.6-10.3); Potassium 4.5 mEq/L (3.5-5.1)
[2018-10-12] MEDS: Gabapentin 300 MG CAPSULE PO SCH (22:41)
[2018-10-13 02:00] LABS: Basophils # 0.1 K/mcL (0.0-0.2); Basophils % 0.6 %; Eosinophils # 0.3 K/mcL (0.0-0.6); Eosinophils % 2.1 %; Hematocrit 50.4 % (37.5-50.1); Hemoglobin 15.5 g/dL (12.9-16.9); Immature Granulocytes % 0.7 % (0-4); Lymphocytes # 1.9 K/mcL (0.6-4.6); Lymphocytes % 15.6 %; Mean Corpuscular HGB Conc 30.8 g/dL (31.6-35.5); Mean Corpuscular Hemoglobin 27.7 pg (28.0-33.3); Mean Platelet Volume 12.1 fL (9.4-12.4); Monocytes # 1.1 K/mcL (0.0-1.3); Monocytes % 8.9 %; Neutrophils # 8.8 K/mcL (1.6-8.9); Platelet Count 182 K/mcL (140-400); Red Cell Distribution Width 16.6 % (11.5-14.5); Segmented Neutrophils % 72.1 %; White Blood Count 12.2 K/mcL (4.3-11.1)
[2018-10-13 02:19] LABS: Calcium 9.2 mg/dL (8.6-10.3); Potassium 4.4 mEq/L (3.5-5.1)
[2018-10-13] MEDS: *HR* Heparin 5,000 UNIT/ML VIAL SQ SCH ×3 (05:05→21:06)
[2018-10-13] MEDS: amLODIPine 5 MG TABLET PO SCH (08:24)
[2018-10-13] MEDS: Gabapentin 300 MG CAPSULE PO SCH ×3 (08:24→21:07)
[2018-10-13] MEDS: Aspirin Enteric Coated 81 MG Tablet PO SCH (08:24)
[2018-10-13] MEDS: Cholecalciferol (D-3) 1,000 UNIT (25MCG) TABLET PO SCH (08:25)
[2018-10-13] MEDS: Furosemide 40 MG/4 ML VIAL IVP SCH (08:25)
[2018-10-13] MEDS: Insulin LISPRO 300 UNITS/3 ML VIAL SQ SCH ×4 (08:32→21:06)
[2018-10-13] MEDS: hydrOXYzine pamoate 25 MG CAPSULE PO SCH ×3 (11:33→21:07)
[2018-10-13] MEDS ORDERED: Simethicone 80 MG TAB.CHEW PO PRN (16:15)
[2018-10-13] MEDS: Ipratropium/Albuterol Neb 3 ML IH SCH ×2 (16:56→22:25)
[2018-10-13] MEDS: Artificial Tears SOLN 15 ML BOTTLE BOTH EYES SCH (21:07)
[2018-10-14] MEDS: Ipratropium/Albuterol Neb 3 ML IH SCH ×4 (03:44→22:14)
[2018-10-14] MEDS: *HR* Heparin 5,000 UNIT/ML VIAL SQ SCH ×3 (04:24→20:02)
[2018-10-14 05:09] LABS: Basophils # 0.1 K/mcL (0.0-0.2); Basophils % 0.5 %; Eosinophils # 0.3 K/mcL (0.0-0.6); Eosinophils % 3.3 %; Hematocrit 46.1 % (37.5-50.1); Hemoglobin 14.2 g/dL (12.9-16.9); Immature Granulocytes % 0.6 % (0-4); Lymphocytes # 1.2 K/mcL (0.6-4.6); Lymphocytes % 12.8 %; Mean Corpuscular HGB Conc 30.8 g/dL (31.6-35.5); Mean Corpuscular Hemoglobin 27.6 pg (28.0-33.3); Mean Corpuscular Volume 89.5 fL (83.0-100.0); Mean Platelet Volume 12.3 fL (9.4-12.4); Monocytes # 0.9 K/mcL (0.0-1.3); Monocytes % 9.9 %; Neutrophils # 6.8 K/mcL (1.6-8.9); Platelet Count 163 K/mcL (140-400); Red Blood Count 5.15 M/mcL (4.19-5.50); Red Cell Distribution Width 16.6 % (11.5-14.5); Segmented Neutrophils % 72.9 %; White Blood Count 9.3 K/mcL (4.3-11.1)
[2018-10-14 05:27] LABS: Potassium 4.4 mEq/L (3.5-5.1)
[2018-10-14] MEDS: Furosemide 40 MG/4 ML VIAL IVP SCH (08:06)
[2018-10-14] MEDS: hydrOXYzine pamoate 25 MG CAPSULE PO SCH ×3 (08:08→20:01)
[2018-10-14] MEDS: Insulin LISPRO 300 UNITS/3 ML VIAL SQ SCH ×4 (08:08→20:06)
[2018-10-14] MEDS: amLODIPine 5 MG TABLET PO SCH (08:09)
[2018-10-14] MEDS: Isosorbide MONOnitrate (24 HR) 30 MG TAB.ER.24H PO SCH (08:10)
[2018-10-14] MEDS: Aspirin Enteric Coated 81 MG Tablet PO SCH (08:10)
[2018-10-14] MEDS: Cholecalciferol (D-3) 1,000 UNIT (25MCG) TABLET PO SCH (08:10)
[2018-10-14] MEDS: Gabapentin 300 MG CAPSULE PO SCH ×3 (08:10→20:01)
[2018-10-14] MEDS: Magnesium Oxide 400 MG TABLET PO SCH (08:10)
[2018-10-14] MEDS: Artificial Tears SOLN 15 ML BOTTLE BOTH EYES SCH ×3 (08:11→20:05)
[2018-10-15] MEDS: Ipratropium/Albuterol Neb 3 ML IH SCH ×4 (03:11→21:52)
[2018-10-15] MEDS: *HR* Heparin 5,000 UNIT/ML VIAL SQ SCH ×3 (06:18→20:40)
[2018-10-15] MEDS: Furosemide 40 MG/4 ML VIAL IVP SCH (07:30)
[2018-10-15] MEDS: Cholecalciferol (D-3) 1,000 UNIT (25MCG) TABLET PO SCH (07:32)
[2018-10-15] MEDS: Insulin LISPRO 300 UNITS/3 ML VIAL SQ SCH ×4 (07:33→20:55)
[2018-10-15] MEDS: Magnesium Oxide 400 MG TABLET PO SCH (07:33)
[2018-10-15] MEDS: Artificial Tears SOLN 15 ML BOTTLE BOTH EYES SCH ×3 (07:33→20:40)
[2018-10-15] MEDS: amLODIPine 5 MG TABLET PO SCH (07:33)
[2018-10-15] MEDS: Gabapentin 300 MG CAPSULE PO SCH ×3 (07:33→20:40)
[2018-10-15] MEDS: Aspirin Enteric Coated 81 MG Tablet PO SCH (07:33)
[2018-10-15] MEDS: Isosorbide MONOnitrate (24 HR) 30 MG TAB.ER.24H PO SCH (07:33)
[2018-10-15] MEDS: hydrOXYzine pamoate 25 MG CAPSULE PO SCH ×3 (07:33→20:40)
[2018-10-15 08:24] LABS: Albumin 3.4 g/dL (3.5-5.7); Albumin/Globulin Ratio 1.4 (1.1-2.2); Bilirubin,Total 0.8 mg/dL (0.3-1.0); Calcium 8.8 mg/dL (8.6-10.3); Globulin 2.5 g/dL (2.4-3.5); Potassium 4.5 mEq/L (3.5-5.1); Total Protein 5.9 g/dL (6.4-8.9)
[2018-10-15] MEDS ORDERED: Furosemide 20 MG/2 ML VIAL IVP ONE (13:00)
[2018-10-16] MEDS: Ipratropium/Albuterol Neb 3 ML IH SCH ×4 (03:47→21:47)
[2018-10-16 05:05] LABS: Potassium 4.6 mEq/L (3.5-5.1)
[2018-10-16] MEDS: *HR* Heparin 5,000 UNIT/ML VIAL SQ SCH ×3 (05:16→22:52)
[2018-10-16] MEDS: Aspirin Enteric Coated 81 MG Tablet PO SCH (08:06)
[2018-10-16] MEDS: amLODIPine 5 MG TABLET PO SCH (08:06)
[2018-10-16] MEDS: Isosorbide MONOnitrate (24 HR) 30 MG TAB.ER.24H PO SCH (08:06)
[2018-10-16] MEDS: Cholecalciferol (D-3) 1,000 UNIT (25MCG) TABLET PO SCH (08:06)
[2018-10-16] MEDS: Magnesium Oxide 400 MG TABLET PO SCH (08:06)
[2018-10-16] MEDS: Gabapentin 300 MG CAPSULE PO SCH ×3 (08:06→20:11)
[2018-10-16] MEDS: hydrOXYzine pamoate 25 MG CAPSULE PO SCH ×3 (08:06→20:10)
[2018-10-16] MEDS: Insulin LISPRO 300 UNITS/3 ML VIAL SQ SCH ×4 (08:06→20:25)
[2018-10-16] MEDS: Artificial Tears SOLN 15 ML BOTTLE BOTH EYES SCH ×3 (08:07→20:09)
[2018-10-16] MEDS: Furosemide 40 MG/4 ML VIAL IVP SCH (08:07)
[2018-10-17] MEDS: Ipratropium/Albuterol Neb 3 ML IH SCH ×4 (03:50→22:19)
[2018-10-17] MEDS: *HR* Heparin 5,000 UNIT/ML VIAL SQ SCH ×3 (04:11→20:11)
[2018-10-17] MEDS: Isosorbide MONOnitrate (24 HR) 30 MG TAB.ER.24H PO SCH (08:14)
[2018-10-17] MEDS: Insulin LISPRO 300 UNITS/3 ML VIAL SQ SCH ×4 (08:14→19:47)
[2018-10-17] MEDS: hydrOXYzine pamoate 25 MG CAPSULE PO SCH ×3 (08:14→20:10)
[2018-10-17] MEDS: Artificial Tears SOLN 15 ML BOTTLE BOTH EYES SCH ×3 (08:14→20:11)
[2018-10-17] MEDS: Aspirin Enteric Coated 81 MG Tablet PO SCH (08:15)
[2018-10-17] MEDS: Furosemide 40 MG TABLET PO SCH (08:15)
[2018-10-17] MEDS: Cholecalciferol (D-3) 1,000 UNIT (25MCG) TABLET PO SCH (08:15)
[2018-10-17] MEDS: amLODIPine 5 MG TABLET PO SCH (08:15)
[2018-10-17] MEDS: Gabapentin 300 MG CAPSULE PO SCH ×3 (08:15→20:09)
[2018-10-17] MEDS: Magnesium Oxide 400 MG TABLET PO SCH (08:16)
[2018-10-17] MEDS ORDERED: *HR* Metoprolol 5 MG/5 ML VIAL IVP ONE (15:29)
[2018-10-18] MEDS: Ipratropium/Albuterol Neb 3 ML IH SCH ×4 (03:47→21:31)
[2018-10-18] MEDS: *HR* Heparin 5,000 UNIT/ML VIAL SQ SCH ×3 (06:15→20:57)
[2018-10-18] MEDS: Insulin LISPRO 300 UNITS/3 ML VIAL SQ SCH ×4 (08:49→20:58)
[2018-10-18] MEDS: amLODIPine 5 MG TABLET PO SCH (08:50)
[2018-10-18] MEDS: Cholecalciferol (D-3) 1,000 UNIT (25MCG) TABLET PO SCH (08:50)
[2018-10-18] MEDS: Furosemide 40 MG TABLET PO SCH (08:51)
[2018-10-18] MEDS: Isosorbide MONOnitrate (24 HR) 30 MG TAB.ER.24H PO SCH (08:51)
[2018-10-18] MEDS: Gabapentin 300 MG CAPSULE PO SCH ×3 (08:51→20:57)
[2018-10-18] MEDS: hydrOXYzine pamoate 25 MG CAPSULE PO SCH ×3 (08:52→20:57)
[2018-10-18] MEDS: Aspirin Enteric Coated 81 MG Tablet PO SCH (08:52)
[2018-10-18] MEDS: Magnesium Oxide 400 MG TABLET PO SCH (08:53)
[2018-10-18] MEDS: Artificial Tears SOLN 15 ML BOTTLE BOTH EYES SCH ×3 (08:53→20:58)
[2018-10-18 09:45] LABS: Calcium 9.1 mg/dL (8.6-10.3); Potassium 4.9 mEq/L (3.5-5.1)
[2018-10-19] MEDS: Ipratropium/Albuterol Neb 3 ML IH SCH ×2 (03:43→10:38)
[2018-10-19] MEDS: *HR* Heparin 5,000 UNIT/ML VIAL SQ SCH (05:01)
[2018-10-19 05:36] LABS: Calcium 9.1 mg/dL (8.6-10.3); Potassium 5.2 mEq/L (3.5-5.1)
[2018-10-19] MEDS: Gabapentin 300 MG CAPSULE PO SCH ×2 (08:06→13:19)
[2018-10-19] MEDS: Cholecalciferol (D-3) 1,000 UNIT (25MCG) TABLET PO SCH (08:06)
[2018-10-19] MEDS: Magnesium Oxide 400 MG TABLET PO SCH (08:06)
[2018-10-19] MEDS: Artificial Tears SOLN 15 ML BOTTLE BOTH EYES SCH (08:06)
[2018-10-19] MEDS: Furosemide 40 MG TABLET PO SCH (08:07)
[2018-10-19] MEDS: Aspirin Enteric Coated 81 MG Tablet PO SCH (08:07)
[2018-10-19] MEDS: Isosorbide MONOnitrate (24 HR) 30 MG TAB.ER.24H PO SCH (08:07)
[2018-10-19] MEDS: hydrOXYzine pamoate 25 MG CAPSULE PO SCH ×2 (08:07→13:20)
[2018-10-19] MEDS: amLODIPine 5 MG TABLET PO SCH (08:08)
[2018-10-19] MEDS: Insulin LISPRO 300 UNITS/3 ML VIAL SQ SCH ×2 (08:17→11:38)
[2018-10-19 11:17] VITALS: BP 132/69
== END 2018-10-19 13:25 | DRG 291 ==
LOC: 2NNU 22:16 → EMEROOARM 22:16 → 2NNU 10-12 01:25 → SUATTDRO 10-12 04:02
PROVIDERS: ADMIT Pediatrics; ATTEND Student in an Organized Health Care Education/Training Program